=== PATIENT | male | born 1935 | race Caucasian/White ===

== ENCOUNTER 2016-08-09 13:25 | Emergency (ER) | payer MEDICARE, OTHER ==
[~2016-08-09] VITALS: Ht 167.6 cm; Wt 66.0 kg
[~2016-08-09 13:25] MED LIST: AZOP1OP10 BOTH EYES; CEPH-443 PO; DOCU100C PO; FERR-55 PO; FINA5TAB4 PO; FURO40SO PO; HYDR-3498 PO; MECL-77 PO; METO25TA4 PO; POTA20TA96 PO; PRAV40TA76 PO; SPIR25TA PO; TML25OPG5 BOTH EYES; TRAV5DRO5 BOTH EYES; [UNRECOGNIZED DRUG - CODE] PO
[2016-08-09 13:50] VITALS: Ht 167.6 cm; Wt 66.0 kg
[2016-08-09] MEDS ORDERED: SOD CHLORIDE 0.9% 500 ML IV STA (16:00)
[2016-08-09 16:28] LABS: ADD SCAN DIFF NO
[2016-08-09 16:38] LABS: ABNORMAL IP MESSAGE 1; HEMATOCRIT 33.7 % (42.0-52.0); HEMOGLOBIN 10.7 g/dl (14.0-18.0); MEAN CORPUSCULAR HEMOGLOBIN 29.2 pg (29.0-33.0); MEAN CORPUSCULAR HGB CONC 31.8 g/dl (32.0-37.0); MEAN CORPUSCULAR VOLUME 92.1 fl (82.0-101.0); MEAN PLATELET VOLUME 10.8 fl (7.4-10.4); PLATELET COUNT 121 10^3/UL (140-415); RED BLOOD COUNT 3.66 10^6/ul (4.70-6.10); WHITE BLOOD COUNT 2.6 10^3/ul (4.8-10.8)
[2016-08-09 16:45] LABS: INR 2.04; PARTIAL THROMBOPLASTIN TIME 42.8 Sec (25.0-35.0); PROTIME 23.2 Sec (12.2-14.2); PT RATIO 1.8
--- NOTE | 2016-08-09 16:53 | RADRPT ---
PROCEDURE: US bilateral lower extremity veins. CLINICAL INDICATION: Bilateral leg pain and swelling. Chest pain and shortness of breath. TECHNIQUE: Multiple longitudinal and transverse images of the bilateral lower extremity veins were obtained with walker scale and color Doppler imaging. The common femoral vein, femoral vein, and popl iteal vein were evaluated. 2D grayscale measurements with compression sonography, color Doppler, and pulsed Doppler with augmentation. COMPARISON: No prior studies are available for comparison. FINDINGS: The bilateral common femoral, femoral and popliteal veins are normally compressible throughout. Col or flow demonstrates normal filling of the vessels. Normal waveforms are visualized and there is no rmal response to augmentation. IMPRESSION: 1. No evidence of deep vein thrombosis involving either lower extremity. RPTAT: QQ .Erik James MD, Date Time Electronically viewed and signed by .Erik James MD, on 08/09/2016 16:53 .R/
[2016-08-09 16:55] LABS: ALBUMIN 4.3 g/dl (3.3-4.9); CHLORIDE 95 mmol/L (97-110); POTASSIUM 3.7 mmol/L (3.5-5.1); SODIUM 141 mmol/L (135-144)
[2016-08-09 16:57] LABS: CREATININE 1.49 mg/dl (0.61-1.24)
[2016-08-09 16:58] LABS: ALANINE AMINOTRANSFERASE 32 IU/L (13-69); ALBUMIN/GLOBULIN RATIO 0.91; ALKALINE PHOSPHATASE 140 IU/L (42-121); ANION GAP 23 (8-16); ASPARTATE AMINO TRANSFERASE 38 IU/L (15-46); BILIRUBIN,INDIRECT 0.2 mg/dl (0-1.1); BILIRUBIN,TOTAL 0.2 mg/dl (0.2-1.3); BLOOD UREA NITROGEN 39 mg/dl (7-20); CARBON DIOXIDE 27 mmol/L (21-31); CREATINE KINASE 84 IU/L (23-200); GLUCOSE 91 mg/dl (70-220)
[2016-08-09 17:08] LABS: B-TYPE NATRIURETIC PEPTIDE 1070 PG/ML (0-450)
[2016-08-09 17:09] LABS: CK-MB 3.06 ng/ml (0.0-2.4)
[2016-08-09 17:21] LABS: TROPONIN-I < 0.012 ng/ml (0.00-0.12)
[2016-08-09] MEDS ORDERED: FER325 PO (17:29)
[2016-08-09] MEDS ORDERED: AMIO200T2 PO (17:29)
[2016-08-09] MEDS ORDERED: ALDS PO (17:30)
[2016-08-09] MEDS ORDERED: LEVO50TA74 PO (17:30)
[2016-08-09] MEDS ORDERED: METO5TAB65 PO (17:31)
[2016-08-09] MEDS ORDERED: FURO40TA4 PO (17:31)
[2016-08-09] MEDS ORDERED: METF500T4 PO (17:32)
[2016-08-09] MEDS ORDERED: TAMS0.4C2 PO (17:33)
[2016-08-09] MEDS ORDERED: ATOR10TA65 PO (17:33)
[2016-08-09] MEDS ORDERED: DORZ10DR6 BOTH EYES (17:34)
[2016-08-09] MEDS ORDERED: WARF4TAB PO (17:38)
[2016-08-09] MEDS ORDERED: WARF2TAB PO (17:38)
[2016-08-09] MEDS ORDERED: WARF3TAB PO (17:38)
[2016-08-09] MEDS ORDERED: FINA5TAB4 PO (17:39)
[2016-08-09] MEDS ORDERED: LATA2.5D2 BOTH EYES (17:40)
[2016-08-09] MEDS ORDERED: POTA20TA15 PO (17:41)
[2016-08-09 19:33] LABS: LYMPHOCYTES # 1.7 10^3/ul (0.8-2.9); MONOCYTE # 0.3 10^3/ul (0.3-0.9); NEUTROPHIL # 0.4 10^3/ul (1.6-7.5)
--- NOTE | 2016-08-09 19:53 | ERD ---
ER Documentation Chief Complaint Date/Time DATE: 08/09/16 TIME: 19:52 Chief Complaint BILATERAL ANKLE PAIN OF UNK ORIGIN. HPI This is a 80-year-old very pleasant male that presents to the emergency department complaining of bilateral lower extremity pain and swelling that has been present for the past 1 month. The patient indicates that he has had a previous sternotomy August 16, 2015 performed at [facility] with a mitral valve repair and aortic valve repair. The patient also has a cardiac pacemaker present. He indicates that he has no shortness of breath at rest or exertion. He denies any chest pain or pressure that radiates to the neck arm back or jaw. He indicates that he is experiencing cramping and severe pain of his bilateral lower extremities that is most present at night while he sleeping. He denies any numbness or tingling of his lower extremities. He indicates that the swelling is most prominent around his ankles and again this is been intermittent for 1 month. He has no fevers no shaking or chills. He states he has taken no medication for the lower extremity pain and denies any recent or remote trauma to his bilateral lower extremities. He denies any back pain. He denies any saddle anesthesia. ROS All systems reviewed and are negative except as per history of present illness. Medications Home Meds Active Scripts Hydrocodone Bit-Acetaminophen* ([place]*) 5-325 Mg Tab, 1 TAB PO Q6 Y for PAIN LEVEL 6-10, #30 TAB Prov:ANGELICA GORDILLO MD 06/03/15 Reported Medications Potassium Chloride* (K-Dur*) 20 Meq Tab.prt.sr, 20 MEQ PO BID, TAB.SA 08/09/16 Latanoprost (Latanoprost) 2.5 Ml Drops, 1 DROP BOTH EYES QHS, #1 BOTTLE 08/09/16 Finasteride* (Finasteride*) 5 Mg Tablet, 5 MG PO DAILY, TAB 08/09/16 Warfarin Sodium* (Coumadin*) 4 Mg Tablet, 4 MG PO DAILY, TAB DEPENDS HOW HIS BLOOD TEST 08/09/16 Warfarin Sodium* (Coumadin*) 3 Mg Tablet, 3 MG PO DAILY, TAB DEPENDS HOW HIS BLOOD TEST 08/09/16 Warfarin Sodium* (Coumadin*) 2 Mg Tablet, 2 MG PO DAILY, TAB DEPENDS HOW HIS BLOOD TEST 08/09/16 Dorzolamide/Timolol* (Dorzolamide/Timolol*) 10 Ml Drops, 1 DROP BOTH EYES BID, # 1 EA 08/09/16 Atorvastatin Calcium (Atorvastatin Calcium) 10 Mg Tablet, 10 MG PO QHS, #30 TAB 08/09/16 Tamsulosin Hcl* (Tamsulosin Hcl*) 0.4 Mg Cap.er.24h, 0.4 MG PO DAILY, CAP 08/09/16 Metformin* (Glucophage*) 500 Mg Tab, 500 MG PO WITH LUNCH DINNER, #60 TAB 08/09/16 Metolazone* (Metolazone*) 5 Mg Tablet, 5 MG PO DAILY, TAB 08/09/16 Furosemide* (Furosemide*) 40 Mg Tablet, 40 MG PO DAILY, TAB 08/09/16 Spironolactone* (Aldactone*) 5 Mg/Ml (COMPOUNDED) Susp, 5 MG PO DAILY for 30 Days, BOTTLE (COMPOUNDED) 08/09/16 Levothyroxine Sodium* (Levothyroxine Sodium*) 50 Mcg Tablet, 50 MCG PO BEFORE BREAKFAST, #30 TAB 08/09/16 Ferrous Sulfate* (Ferrous Sulfate*) 325 Mg Tabec, 325 MG PO DAILY, TAB 08/09/16 Amiodarone Hcl* (Amiodarone Hcl*) 200 Mg Tablet, 200 MG PO DAILY, #30 TAB 08/09/16 Discontinued Reported Medications Meclizine Hcl* (Meclizine Hcl*) 25 Mg Tablet, 25 MG PO TID Y for DIZZINESS, TAB 11/30/14 Metoprolol Tartrate* (Lopressor*) 25 Mg Tablet, 25 MG PO DAILY, TAB 11/30/14 Spironolactone* (Aldactone*) 25 Mg Tablet, 50 MG PO DAILY, TAB 07/07/14 Pravastatin Sodium* (Pravastatin Sodium*) 40 Mg Tablet, 40 MG PO HS, TAB 07/07/14 Brinzolamide* (Azopt*) 1%-5 Ml Drops.susp, 1 DROP BOTH EYES TID, BOTTLE 07/07/14 Ferrous Sulfate* (Ferrous Sulfate*) 325 Mg Tablet, 1 TAB PO DAILY 05/14/12 Travoprost (Benzalkonium) (Travatan 0.004% Eye Drop) 5 Ml Drops, 1 DROP BOTH EYES QHS 12/29/10 Timolol Maleate* (Timolol Maleate* Gel) 5 Ml Amalia.gel, 1 DROP BOTH EYES QAM 12/29/10 Docusate Sodium (Doc-Q-Lace) 100 Mg Capsule, 100 MG PO BID 12/29/10 Finasteride* (Finasteride*) 5 Mg Tablet, 5 MG PO DAILY 02/06/10 Discontinued Scripts Cephalexin* (Keflex*) 500 Mg Capsule, 500 MG PO BID for 7 Days, #14 CAP Prov:NILDA CLAUDIO MD 02/18/16 Furosemide* (Furosemide*) 40 Mg/5 Ml Solution, 40 MG PO DAILY for 30 Days, ML Prov:ANGELICA GORDILLO MD 06/03/15 Warfarin Sodium (Warfarin Sodium) 2 Mg Tablet, 7 MG PO DAILY for 30 Days, TAB Prov:ANGELICA GORDILLO MD 06/03/15 Potassium Chloride* (Potassium Chloride*) 20 Meq Tablet.er, 20 MEQ PO BID for 30 Days, TAB.SA Prov:ANGELICA GORDILLO MD 07/09/14 Allergies Allergies: Coded Allergies: tramadol (Verified Adverse Reaction, Severe, SHAKINESS, 08/09/16) PMhx/Soc History of Surgery: Yes (heart valve replacement x3,cabg,pacemaker x2,gall bladder surgery) Anesthesia Reaction: No Hx Neurological Disorder: No Hx Respiratory Disorders: No Hx Cardiac Disorders: Yes (htn,afib, HEART FAILURE) Hx Psychiatric Problems: No Hx Miscellaneous Medical Probl: Yes (ANEMIA, GERD, ) Hx Alcohol Use: Yes (occasional) Hx Substance Use: No Hx Tobacco Use: No Smoking Status: Never smoker Physical Exam Vitals Vital Signs Date Time Temp Pulse Resp B/P Pulse Ox O2 Delivery O2 Flow Rate FiO2 08/09/16 18:36 61 20 122/55 100 Room Air 08/09/16 13:50 98.6 61 20 125/56 100 Physical Exam Constitutional:Well-developed. Well-nourished. HEENT:Normocephalic. Atraumatic.Pupils were equal round reactive to light. Moist mucous membranes.No tonsillar exudates. Neck: No nuchal rigidity. No lymphadenopathy. No posterior cervical spine tenderness or step-offs. Respiratory: Not using accessory muscles of respiration.Lungs were clear to auscultation bilaterally. No rhonchi. No rales. No wheezing. Cardiovascular: Regular rate regular rhythm. Systolic murmur. No rubs were appreciated.S1, S2 normal. Distal pulses are palpable 2+ bilaterally. GI: Abdomen was soft. Nontender. Non Distended. No pulsatile abdominal masses or bruits. No rebound. No guarding. Bowel sounds were present and normal. Muscle skeletal: Full range of motion of both the upper and lower extremities bilaterally.Normal muscle tone. 1+ pitting edema the bilateral lower extremities. Homans sign negative bilaterally. Skin: No petechia, no purpura. No lesions on the palms or the soles of the feet. No maculopapular rash. Hyperpigmentation over the distal two thirds of the anterior aspect of the bilateral lower extremities. NEURO: Patient was alert, awake, orientated x3.No facial droop. Gait observed and normal with no ataxia.Speech had regular rate and rhythm. No focal neurological deficits. Result Diagram: 08/09/16 1620 08/09/16 1620 Results 24 hrs Laboratory Tests Test 08/09/16 16:20 Activated Partial Thromboplast Time 42.8Sec Alanine Aminotransferase (ALT/SGPT) 32IU/L Albumin 4.3g/dl Albumin/Globulin Ratio 0.91 Alkaline Phosphatase 140IU/L Anion Gap 23 Aspartate Amino Transf (AST/SGOT) 38IU/L B-Type Natriuretic Peptide 1070PG/ML Band Neutrophils % 2.0% Blood Urea Nitrogen 39mg/dl Calcium Level 10.0mg/dl Carbon Dioxide Level 27mmol/L Chloride Level 95mmol/L Creatine Kinase 84IU/L Creatine Kinase Index 3.6 Creatinine 1.49mg/dl Creatinine Kinase MB (Mass) 3.06ng/ml Direct Bilirubin 0.00mg/dl Globulin 4.70g/dl Glucose Level 91mg/dl Hematocrit 33.7% Hemoglobin 10.7g/dl INR International Normalized Ratio 2.04 Indirect Bilirubin 0.2mg/dl Lymphocytes # 1.710^3/ul Lymphocytes % 65.0% Mean Corpuscular Hemoglobin 29.2pg Mean Corpuscular Hemoglobin Concent 31.8g/dl Mean Corpuscular Volume 92.1fl Mean Platelet Volume 10.8fl Monocytes # 0.310^3/ul Monocytes % 13.0% Neutrophils # 0.410^3/ul Neutrophils % 17.0% Platelet Count 82070^3/UL Potassium Level 3.7mmol/L Prothrombin Time 23.2Sec Prothrombin Time Ratio 1.8 Reactive Lymphocytes % 3.0% Red Blood Count 3.6610^6/ul Red Cell Distribution Width 14.0% Sodium Level 141mmol/L Total Bilirubin 0.2mg/dl Total Protein 9.0g/dl Troponin I < 0.012ng/ml White Blood Count 2.610^3/ul Current Medications Medications (Trade) Dose Ordered Sig/Angeles Route PRN Reason Start Time Stop Time Status Last Admin Dose Admin Sodium Chloride (NS) 500 ml @ 500 mls/hr Q1H STAT IV 08/09/16 16:00 08/09/16 16:59 Cancel Procedures/MDM This patient presented to the emergency department complaining of lower extremity pain and swelling for the past 1 month. The patient has a significant cardiac history and ancillary laboratory work was obtained. The patient was refusing IV access. The patient is leukopenic and when reviewing previous ancillary laboratory work from May 2015 the patient was also leukopenic with white blood cell count of 4.0. The patient has chronic kidney injury with a BUN of 39 and creatinine of 1.49 compared to May 2015 when the patient's BUN was 24 creatinine was 0.93. I did obtain venous duplex ultrasound of the bilateral lower extremities which indicated there is no evidence of a deep vein thrombosis. 12 Lead EKG tracing ordered and reviewed by myself showed: Ventricular paced rhythm at 60 bpm and no arrhythmia. MA interval not appreciated as P waves were not present due to the paced rhythm QRS duration widened from ventricular paced rhythm at [address] segment elevation No ST segment depression. No changes consistent with acute ischemia. The patient's troponin was within normal limits. There is mild elevation of the patient's BNP which could be a result of his chronic renal failure. The patient had no physical exam findings to suggest endocarditis. The patient had physical exam findings that were suggestive of chronic venous insufficiency that have been present for over one month. He did not appear to have an acute life-threatening etiology as arterial insufficiency. His primary care physician is Dr. Gordillo. I have placed a call to Dr. Gordillo and did indicate to the patient that he will follow-up on an outpatient basis for further definitive treatment. The patient was discharged home in fair condition. They were instructed to return to the emergency department at any time if there was any worsening of their condition. The patient stated they would follow up with their PCP in the next 24-48 hours to initiate a suitable medication regimen under the care of their PCP as well as to allow their PCP to monitor any drug reactions. The patient was discharged home with prescriptions after they gave informed consent to the new medication. They were also fully informed by myself on the adverse effects and adverse drug interactions in order to provide adequate safeguards to prevent possible adverse reactions to medications. Departure Diagnosis: Primary Impression: Peripheral edema Additional Impression: Leg pain, bilateral Condition: DENIS Lange Aug 09, 2016 19:53
[2016-08-09] MEDS ORDERED: HYDR-906 PO (20:00)
[2016-08-09 20:34] VITALS: BP 104/54; PULSE 63; RESP 16
--- NOTE | 2016-08-09 20:56 | RADRPT ---
PROCEDURE: XR Chest. CLINICAL INDICATION: Chest pain TECHNIQUE: A single portable view of the chest was obtained. COMPARISON: 06/02/2015 FINDINGS: The dual lead pacemaker is unchanged. A prior median sternotomy is again seen. The aorta is tortuo us and atherosclerotic. The cardiomediastinal silhouette is otherwise enlarged and is stable. Small bilateral pleural effusions are seen with bibasilar atelectasis. No dense consolidation is seen. T he soft tissues and osseous structures demonstrate benign age related senescent changes. IMPRESSION: 1. Small bilateral pleural effusions with bibasilar atelectasis. 2. Stable cardiomegaly. RPTAT: HPNM Physician Marilyn Date Time Electronically viewed and signed by Jem Clifton Physician on 08/09/2016 20:56 /
== END 2016-08-09 20:34 | disposition home or self-care (01) ==
LOC: E/R 13:25
DX: R60.0 Localized edema (principal); M79.662 Pain in left lower leg; M79.661 Pain in right lower leg; I10 Essential (primary) hypertension; I50.9 Heart failure, unspecified; Z95.1 Presence of aortocoronary bypass graft; Z95.0 Presence of cardiac pacemaker; Z79.01 Long term (current) use of anticoagulants; Z79.84 Long term (current) use of oral hypoglycemic drugs
CPT/HCPCS: 71010; 80053; 82550; 82553; 83880; 84484; 85025; 85610; 85730; 93005; 93970; J7040

== ENCOUNTER 2016-12-30 13:13 | Emergency (ER) | payer MEDICARE, OTHER ==
[~2016-12-30] VITALS: Ht 170.2 cm; Wt 65.5 kg
[~2016-12-30 13:13] MED LIST changes: +ALDS PO; +AMIO200T2 PO; +ATOR10TA65 PO; -AZOP1OP10 BOTH EYES; -CEPH-443 PO; -DOCU100C PO; +DORZ10DR6 BOTH EYES; +FER325 PO; -FERR-55 PO; -FURO40SO PO; +FURO40TA4 PO; +HYDR-906 PO; +LATA2.5D2 BOTH EYES; +LEVO50TA74 PO; -MECL-77 PO; +METF500T4 PO; -METO25TA4 PO; +METO5TAB65 PO; +POTA20TA15 PO; -POTA20TA96 PO; -PRAV40TA76 PO; -SPIR25TA PO; +TAMS0.4C2 PO; -TML25OPG5 BOTH EYES; -TRAV5DRO5 BOTH EYES; +WARF2TAB PO; +WARF3TAB PO; +WARF4TAB PO; -[UNRECOGNIZED DRUG - CODE] PO
[2016-12-30 13:18] VITALS: Ht 170.2 cm; Wt 65.5 kg
--- NOTE | 2016-12-30 15:57 | ERA ---
ER Documentation Chief Complaint Date/Time DATE: 12/30/16 TIME: 15:53 Chief Complaint tripped and fell 2 days ago right arm bruise pt is on coumadin HPI This is an 81-year-old male who is on Coumadin who is presenting to days status post mechanical fall with impact to his right forearm. Patient states that the pain is 1 out of 10 refuses pain medications at this time. Patient denies trauma to other areas of the body or loss of consciousness. Denies chest pain, shortness of breath. Has no other complaints and describes no other associated manifestations. No recent travel. Vaccination status up-to-date. ROS All systems reviewed and are negative except as per history of present illness. Medications Home Meds Active Scripts Hydrocodone/Acetaminophen ([place] 5-325 Tablet) 1 Each Tablet, 1 TAB PO Q6H Y for PAIN, #20 TAB Prov:DENIS ASENCIO 08/09/16 Hydrocodone Bit-Acetaminophen* ([place]*) 5-325 Mg Tab, 1 TAB PO Q6 Y for PAIN LEVEL 6-10, #30 TAB Prov:ANGELICA GRANDE MD 06/03/15 Reported Medications Potassium Chloride* (K-Dur*) 20 Meq Tab.prt.sr, 20 MEQ PO BID, TAB.SA 08/09/16 Latanoprost (Latanoprost) 2.5 Ml Drops, 1 DROP BOTH EYES QHS, #1 BOTTLE 08/09/16 Finasteride* (Finasteride*) 5 Mg Tablet, 5 MG PO DAILY, TAB 08/09/16 Warfarin Sodium* (Coumadin*) 4 Mg Tablet, 4 MG PO DAILY, TAB DEPENDS HOW HIS BLOOD TEST 08/09/16 Warfarin Sodium* (Coumadin*) 3 Mg Tablet, 3 MG PO DAILY, TAB DEPENDS HOW HIS BLOOD TEST 08/09/16 Warfarin Sodium* (Coumadin*) 2 Mg Tablet, 2 MG PO DAILY, TAB DEPENDS HOW HIS BLOOD TEST 08/09/16 Dorzolamide/Timolol* (Dorzolamide/Timolol*) 10 Ml Drops, 1 DROP BOTH EYES BID, # 1 EA 08/09/16 Atorvastatin Calcium (Atorvastatin Calcium) 10 Mg Tablet, 10 MG PO QHS, #30 TAB 08/09/16 Tamsulosin Hcl* (Tamsulosin Hcl*) 0.4 Mg Cap.er.24h, 0.4 MG PO DAILY, CAP 08/09/16 Metformin* (Glucophage*) 500 Mg Tab, 500 MG PO WITH LUNCH DINNER, #60 TAB 08/09/16 Metolazone* (Metolazone*) 5 Mg Tablet, 5 MG PO DAILY, TAB 08/09/16 Furosemide* (Furosemide*) 40 Mg Tablet, 40 MG PO DAILY, TAB 08/09/16 Spironolactone* (Aldactone*) 5 Mg/Ml (COMPOUNDED) Susp, 5 MG PO DAILY for 30 Days, BOTTLE (COMPOUNDED) 08/09/16 Levothyroxine Sodium* (Levothyroxine Sodium*) 50 Mcg Tablet, 50 MCG PO BEFORE BREAKFAST, #30 TAB 08/09/16 Ferrous Sulfate* (Ferrous Sulfate*) 325 Mg Tabec, 325 MG PO DAILY, TAB 08/09/16 Amiodarone Hcl* (Amiodarone Hcl*) 200 Mg Tablet, 200 MG PO DAILY, #30 TAB 08/09/16 Allergies Allergies: Coded Allergies: tramadol (Verified Adverse Reaction, Severe, SHAKINESS, 08/09/16) PMhx/Soc History of Surgery: Yes (heart valve replacement x3,cabg,pacemaker x2,gall bladder surgery) Anesthesia Reaction: No Hx Neurological Disorder: No Hx Respiratory Disorders: No Hx Cardiac Disorders: Yes (htn,afib, HEART FAILURE) Hx Psychiatric Problems: No Hx Miscellaneous Medical Probl: Yes (ANEMIA, GERD, ) Hx Alcohol Use: Yes (occasional) Hx Substance Use: No Hx Tobacco Use: No Physical Exam Vitals Vital Signs Date Time Temp Pulse Resp B/P Pulse Ox O2 Delivery O2 Flow Rate FiO2 12/30/16 13:18 97.7 74 18 121/56 96 Physical Exam Const: Well-appearing, pleasant 81-year-old male in no acute distress Head: Atraumatic, normocephalic Eyes: Normal Conjunctiva, EOMI, PERRLA bilaterally ENT: Normal External Ears, Nose and Mouth. Neck: Full range of motion..~ No meningismus. Resp: Clear to auscultation bilaterally Cardio: Regular rate and rhythm, no murmurs. Cap refill less than 2 seconds. Abd: Soft, non tender, non distended. Normal bowel sounds Skin: Ecchymosis and hematomas noted on the arms. Consistent with chronic bruising for patient on Coumadin. Back: No midline or flank tenderness Ext: No cyanosis, or edema Neur: Awake and alert Psych: Normal Mood and Affect Procedures/MDM This is an 81-year-old male presenting today status post mechanical fall as described in the history and physical examination. I have little suspicion for neurovascular compromise or internal bleeding at this time. Labs are not needed at this time as there is no evidence of continued bleeding or external bleeding/abrasions/lacerations. X-ray was taken to rule out bony pathology. X- ray was read by the radiologist given the following impression: Unremarkable I have spoke with the patient regarding their condition and future management. They have verbally responded that they understand their status and treatment plan. The patients vitals are stable, and their current condition is appropriate for discharge. The patient will be given discharge instructions with return precautions. Departure Diagnosis: Primary Impression: Fall with no significant injury Qualified Code: W19.XXXA - Fall with no significant injury, initial encounter Condition: Stable Additional Instructions: Follow up with your PCP within the next 1-3 days for a more thorough evaluation and a possible referral to a specialist. Return the the emergency department immediately if symptoms worsen or change. If you have any questions regarding medications, ask your pharmacist or us before you leave. If any adverse reactions occur while taking your medications, discontinue the treatment and return to the emergency department immediately. Take your medications as directed, and complete the entire course of treatment. OLIVE STAPLES PA-C Dec 30, 2016 15:57
--- NOTE | 2016-12-30 16:01 | RADRPT ---
PROCEDURE: XR Forearm. CLINICAL INDICATION: Pain. Trauma. TECHNIQUE: Right forearm x-rays, two views. COMPARISON: None. FINDINGS: Bone density appears normal. Bony cortices are intact. The wrist and elbow joints are intact. Fine vascular calcifications are seen within the soft tissues. IMPRESSION: No evidence of acute osseous abnormality. Arteriosclerosis. RPTAT: HLST .Heidy Jennings MD, MD Date Time Electronically viewed and signed by .Heidy Jennings MD, on 12/30/2016 16:00 .T/
[2016-12-30 16:57] VITALS: BP 141/65; PULSE 60; RESP 16
== END 2016-12-30 16:58 | disposition home or self-care (01) ==
LOC: FTE 13:13
DX: S40.021A Contusion of right upper arm, initial encounter (principal); S40.022A Contusion of left upper arm, initial encounter; I10 Essential (primary) hypertension; I50.9 Heart failure, unspecified; W01.0XXA Fall on same level from slipping, tripping and stumbling without subsequent striking against object, initial encounter; Y92.9 Unspecified place or not applicable; Z79.01 Long term (current) use of anticoagulants; Z79.84 Long term (current) use of oral hypoglycemic drugs; Z98.61 Coronary angioplasty status; Z95.0 Presence of cardiac pacemaker

== ENCOUNTER 2017-02-28 14:10 | Emergency (ER) | payer MEDICARE, OTHER ==
[~2017-02-28] VITALS: Wt 75.0 kg
[2017-02-28 14:13] VITALS: Wt 75.0 kg
[2017-02-28] MEDS ORDERED: SPIR25TA PO (16:18)
[2017-02-28] MEDS ORDERED: POLY17PO3 PO (16:18)
[2017-02-28 16:30] LABS: BASOPHILS % 0.5 % (0.0-2.0); HEMATOCRIT 32.2 % (42.0-52.0); HEMOGLOBIN 10.5 g/dl (14.0-18.0); LYMPHOCYTES # 1.3 10^3/ul (0.8-2.9); MEAN CORPUSCULAR HEMOGLOBIN 30.3 pg (29.0-33.0); MEAN CORPUSCULAR HGB CONC 32.6 g/dl (32.0-37.0); MEAN CORPUSCULAR VOLUME 92.8 fl (82.0-101.0); MEAN PLATELET VOLUME 9.8 fl (7.4-10.4); MONOCYTE # 0.5 10^3/ul (0.3-0.9); MONOCYTES % 12.8 % (0.0-11.0); NEUTROPHILS % 51.4 % (39.0-77.0); PLATELET COUNT 107 10^3/UL (140-415); RED BLOOD COUNT 3.47 10^6/ul (4.70-6.10); RED CELL DISTRIBUTION WIDTH 13.5 % (11.5-14.5); WHITE BLOOD COUNT 3.8 10^3/ul (4.8-10.8)
[2017-02-28 16:45] LABS: INR 1.98; PROTIME 22.7 Sec (12.2-14.2); PT RATIO 1.8
[2017-02-28 16:46] LABS: PARTIAL THROMBOPLASTIN TIME 39.3 Sec (25.0-35.0)
[2017-02-28 16:49] LABS: CALCIUM 9.6 mg/dl (8.4-10.2); CREATININE 1.61 mg/dl (0.61-1.24); POTASSIUM 4.3 mmol/L (3.5-5.1)
--- NOTE | 2017-02-28 17:11 | RADRPT ---
PROCEDURE: CT Brain without contrast. CLINICAL INDICATION: Trauma, pain. TECHNIQUE: A CT of the brain was performed on multidetector high-resolution CT scanner utilizing a xial sections from the skull base through the vertex without contrast. The scan was reviewed in sof t tissue brain and high frequency resolution bone algorithm windows. Images were reviewed on a high -resolution PACS workstation. One or more the following does reduction techniques were utilized: Aut omated exposure control, adjustment of the mA/ or kV according to patient's size, or use of iterativ e reconstruction technique. The exam CTDI = 42.81 mGy and the DLP = 630.2 mGy-cm. COMPARISON: Brain CT 11/30/2014. FINDINGS: The ventricles and sulci are mildly to moderately prominent indicative of volume loss. There is no intracranial hemorrhage, mass effect or midline shift. No abnormal intra-axial or extra-axial fluid collections are seen. The walker/white matter differentiation is preserved. There are mild scattered foci of hypoattenuation in the white matter, which are nonspecific in etiol ogy but likely reflect chronic small vessel ischemic changes. There are mild intracranial vascular calcifications consistent with atherosclerosis. The visualized paranasal sinuses are essentially chastity ar. Right frontal scalp swelling and hematoma are noted without underlying skull fracture. IMPRESSION: 1. No acute intracranial hemorrhage, transcortical infarction or mass effect. 2. Mild intracranial atherosclerosis and chronic small vessel ischemic changes. 3. Mild to moderate generalized cerebral volume loss. 4. Right frontal scalp swelling and hematoma are noted without underlying skull fracture. RPTAT: HFN .Sharon Ely MD, Date Time Electronically viewed and signed by .Sharon Ely MD, MD on 02/28/2017 17:11 .N/
--- NOTE | 2017-02-28 17:32 | ERD ---
ER Documentation Chief Complaint Date/Time DATE: 02/28/17 TIME: 17:32 Chief Complaint HEAD LAC AFTER [facility] "I TAKE BLOOD THINNERS" HPI 81-year-old male with a history of cardiac arrhythmia, diabetes, hypertension presenting after a ground-level fall. He states he was walking across the street when he tripped and fell. He hit his forehead on the ground. He denies any loss of consciousness. He has no nausea, vomiting, headache, vision disturbance, focal weakness or numbness. He complains of a few scratches but nothing serious. He is on Coumadin after he had artificial valves placed.. ROS All systems reviewed and are negative except as per history of present illness. Medications Home Meds Reported Medications Spironolactone* (Aldactone*) 25 Mg Tablet, 25 MG PO DAILY, #30 TAB 02/28/17 Polyethylene Glycol* (Polyethylene Glycol*) 17 Gm Powd.pack, 17 GM PO DAILY, # 30 PACKET 02/28/17 Potassium Chloride* (K-Dur*) 20 Meq Tab.prt.sr, 20 MEQ PO BID, TAB.SA 08/09/16 Latanoprost (Latanoprost) 2.5 Ml Drops, 1 DROP BOTH EYES QHS, #1 BOTTLE 08/09/16 Finasteride* (Finasteride*) 5 Mg Tablet, 5 MG PO DAILY, TAB 08/09/16 Warfarin Sodium* (Coumadin*) 3 Mg Tablet, 3 MG PO DAILY, TAB DEPENDS HOW HIS BLOOD TEST 08/09/16 Warfarin Sodium* (Coumadin*) 2 Mg Tablet, 2 MG PO DAILY, TAB DEPENDS HOW HIS BLOOD TEST 08/09/16 Atorvastatin Calcium (Atorvastatin Calcium) 10 Mg Tablet, 10 MG PO QHS, #30 TAB 08/09/16 Tamsulosin Hcl* (Tamsulosin Hcl*) 0.4 Mg Cap.er.24h, 0.4 MG PO DAILY, CAP 08/09/16 Metformin* (Glucophage*) 500 Mg Tab, 500 MG PO WITH LUNCH DINNER, #60 TAB 08/09/16 Metolazone* (Metolazone*) 5 Mg Tablet, 5 MG PO DAILY, TAB 08/09/16 Furosemide* (Furosemide*) 40 Mg Tablet, 40 MG PO DAILY, TAB 08/09/16 Levothyroxine Sodium* (Levothyroxine Sodium*) 50 Mcg Tablet, 50 MCG PO BEFORE BREAKFAST, #30 TAB 08/09/16 Ferrous Sulfate* (Ferrous Sulfate*) 325 Mg Tabec, 325 MG PO DAILY, TAB 08/09/16 Amiodarone Hcl* (Amiodarone Hcl*) 200 Mg Tablet, 200 MG PO DAILY, #30 TAB 08/09/16 Discontinued Reported Medications Warfarin Sodium* (Coumadin*) 4 Mg Tablet, 4 MG PO DAILY, TAB DEPENDS HOW HIS BLOOD TEST 08/09/16 Dorzolamide/Timolol* (Dorzolamide/Timolol*) 10 Ml Drops, 1 DROP BOTH EYES BID, # 1 EA 08/09/16 Spironolactone* (Aldactone*) 5 Mg/Ml (COMPOUNDED) Susp, 5 MG PO DAILY for 30 Days, BOTTLE (COMPOUNDED) 08/09/16 Discontinued Scripts Hydrocodone/Acetaminophen ([place] 5-325 Tablet) 1 Each Tablet, 1 TAB PO Q6H Y for PAIN, #20 TAB Prov:DENIS ASENCIO 08/09/16 Hydrocodone Bit-Acetaminophen* ([place]*) 5-325 Mg Tab, 1 TAB PO Q6 Y for PAIN LEVEL 6-10, #30 TAB Prov:ANGELICA GRANDE MD 06/03/15 Allergies Allergies: Coded Allergies: tramadol (Verified Adverse Reaction, Severe, SHAKINESS, 02/28/17) PMhx/Soc History of Surgery: Yes (heart valve replacement x3,cabg,pacemaker x2,gall bladder surgery) Anesthesia Reaction: No Hx Neurological Disorder: No Hx Respiratory Disorders: No Hx Cardiac Disorders: Yes (htn,afib, HEART FAILURE) Hx Psychiatric Problems: No Hx Miscellaneous Medical Probl: Yes (ANEMIA, GERD, ) Hx Alcohol Use: Yes (occasional) Hx Substance Use: No Hx Tobacco Use: No Smoking Status: Never smoker FmHx Family History: No diabetes Physical Exam Vitals Vital Signs Date Time Temp Pulse Resp B/P Pulse Ox O2 Delivery O2 Flow Rate FiO2 02/28/17 17:42 98.0 67 18 132/69 100 Room Air 02/28/17 15:46 67 18 143/74 100 Room Air 02/28/17 14:13 98.0 72 18 143/63 99 Physical Exam Const: Well-appearing, no apparent distress Head: Forehead superficial abrasion and hematoma 3 x 3 cm Eyes: Normal Conjunctiva, PERRLA, EOMI ENT: Normal External Ears, Nose and Mouth. Intraoral injuries Neck: Full range of motion..~ No meningismus. When tenderness Resp: Clear to auscultation bilaterally Cardio: Regular rate and rhythm, no murmurs Abd: Soft, non tender, non distended. Normal bowel sounds Skin: Multiple areas of ecchymosis to the right upper extremity without deformities with superficial abrasion to the right shoulder. Back: No midline or flank tenderness Ext: No cyanosis, or edema. No deformities. Full range of motion at all joints. 2+ distal pulses Neur: GCS15. Awake and alert, oriented 3, cranial nerves intact, strength and sensations intact in all 4 extremities, normal gait Psych: Normal Mood and Affect Result Diagram: 02/28/17 1615 02/28/17 1615 Results 24 hrs Laboratory Tests Test 02/28/17 16:15 White Blood Count 3.810^3/ul Red Blood Count 3.4710^6/ul Hemoglobin 10.5g/dl Hematocrit 32.2% Mean Corpuscular Volume 92.8fl Mean Corpuscular Hemoglobin 30.3pg Mean Corpuscular Hemoglobin Concent 32.6g/dl Red Cell Distribution Width 13.5% Platelet Count 57763^3/UL Mean Platelet Volume 9.8fl Neutrophils % 51.4% Lymphocytes % 34.0% Monocytes % 12.8% Eosinophils % 1.0% Basophils % 0.5% Nucleated Red Blood Cells % 0.0/100WBC Neutrophils # 2.010^3/ul Lymphocytes # 1.310^3/ul Monocytes # 0.510^3/ul Eosinophils # 0.010^3/ul Basophils # 0.010^3/ul Nucleated Red Blood Cells # 0.010^3/ul Prothrombin Time 22.7Sec Prothrombin Time Ratio 1.8 INR International Normalized Ratio 1.98 Activated Partial Thromboplast Time 39.3Sec Sodium Level 133mmol/L Potassium Level 4.3mmol/L Chloride Level 96mmol/L Carbon Dioxide Level 30mmol/L Anion Gap 11 Blood Urea Nitrogen 34mg/dl Creatinine 1.61mg/dl Glucose Level 88mg/dl Calcium Level 9.6mg/dl Current Medications Medications (Trade) Dose Ordered Sig/Angeles Route PRN Reason Start Time Stop Time Status Last Admin Dose Admin Diphtheria/ Tetanus/Acell Pertussis (Adacel) 0.5 ml ONCE ONCE IM* 02/28/17 18:00 02/28/17 18:00 DC 02/28/17 17:37 Procedures/MDM Labs CBC shows pancytopenia BMP shows evidence of chronic renal failure at patient's baseline Coags show INR therapeutic range CT head shows no acute abnormalities other than forehead hematoma. There is no intracranial hemorrhage. MDM Patient is presenting after a ground-level fall. He is GCS 15 without loss of consciousness, however he is on blood thinners. CT head was done and did not show any acute bleed or skull fracture. Patient is neurologically intact. I feel he is stable for discharge. Return precautions were discussed. He was advised to return for any worsening symptoms as there is a risk for delayed bleed. Patient understands. He is with his son who also voiced understanding of the plan. Departure Diagnosis: Primary Impression: Acute head injury without loss of consciousness Encounter type: initial encounter Qualified Code: S09.90XA - Acute head injury without loss of consciousness, initial encounter Additional Impressions: Fall from ground level Traumatic hematoma of forehead Multiple abrasions Condition: Stable Patient Instructions: HEAD INJURY, No Wake-Up (Adult) Additional Instructions: return to the ER for any worsening symptoms. NILDA CLAUDIO MD Feb 28, 2017 17:32
[2017-02-28 17:42] VITALS: BP 132/69; PULSE 67; RESP 18; TEMP 98
[2017-02-28] MEDS ORDERED: DIPHTH/TET/ACEL PERTUSS (ADULT) 0.5 ML VIAL IM* ONE (18:00)
== END 2017-02-28 17:54 | disposition home or self-care (01) ==
LOC: E/R 14:10
DX: S09.90XA Unspecified injury of head, initial encounter (principal); S00.83XA Contusion of other part of head, initial encounter; S40.211A Abrasion of right shoulder, initial encounter; S40.011A Contusion of right shoulder, initial encounter; I10 Essential (primary) hypertension; I50.9 Heart failure, unspecified; E11.9 Type 2 diabetes mellitus without complications; W01.0XXA Fall on same level from slipping, tripping and stumbling without subsequent striking against object, initial encounter; Y92.410 Unspecified street and highway as the place of occurrence of the external cause; Z23 Encounter for immunization; Z95.1 Presence of aortocoronary bypass graft; Z95.0 Presence of cardiac pacemaker; Z79.01 Long term (current) use of anticoagulants; Z79.84 Long term (current) use of oral hypoglycemic drugs
CPT/HCPCS: 70450; 80048; 85025; 85610; 85730; 90471; 90715

== ENCOUNTER 2018-06-07 17:39 | Inpatient (IN) | payer MEDICARE, OTHER ==
[~2018-06-07] VITALS: Ht 167.6 cm; Wt 65.3 kg
[~2018-06-07 17:39] MED LIST changes: -ALDS PO; -AMIO200T2 PO; +AMIO200T4 PO; -DORZ10DR6 BOTH EYES; -HYDR-3498 PO; -HYDR-906 PO; +LEVO50TA7 PO; -LEVO50TA74 PO; +METF-849 PO; -METF500T4 PO; +POLY17PO28 PO; +SPIR25TA PO; -WARF4TAB PO
[2018-06-07] MEDS ORDERED: ACETAMINOPHEN 325 MG TAB PO STA (17:50)
[2018-06-07] MEDS ORDERED: SODIUM CHLORIDE 0.9% 1L BAG IV* STA (17:50)
[2018-06-07] MEDS ORDERED: AZITHROMYCIN 500MG/NS (PMX) 250 ML IV STA (17:50)
[2018-06-07] MEDS ORDERED: CEFTRIAXONE 1 GM/50 ML (PMX) 50 ML IVPB STA (17:50)
[2018-06-07] MEDS ORDERED: ONDANSETRON 4 MG INJ IV PRN (19:30)
[2018-06-07] MEDS ORDERED: ACETAMINOPHEN 325 MG TAB PO PRN (19:30)
--- NOTE | 2018-06-07 20:22 | ERD ---
ER Documentation Chief Complaint Chief Complaint Complains of chest congestion HPI Patient is an 82-year-old male with coronary disease and hypertension who presents with a cough. The patient has cough with productive phlegm. Today he was "shaking all over". The patient has had the symptoms for the past 3 days. He has fever as well. He was concerned for pneumonia. He has had no treatment as of yet. He feels like he would likely need to stay in the hospital as he does not feel safe going home. His primary doctor is Dr. Gordillo. ROS All systems reviewed and are negative except as per history of present illness. Medications Home Meds Reported Medications Spironolactone* (Aldactone*) 25 Mg Tablet, 25 MG PO DAILY, #30 TAB 02/28/17 Polyethylene Glycol* (Polyethylene Glycol*) 17 Gm Powd.pack, 17 GM PO DAILY, #30 PACKET 02/28/17 Potassium Chloride* (K-Dur*) 20 Meq Tab.prt.sr, 20 MEQ PO BID, TAB.SA 08/09/16 Latanoprost (Latanoprost) 2.5 Ml Drops, 1 DROP BOTH EYES QHS, #1 BOTTLE 08/09/16 Finasteride* (Finasteride*) 5 Mg Tablet, 5 MG PO DAILY, TAB 08/09/16 Warfarin Sodium* (Coumadin*) 3 Mg Tablet, 3 MG PO DAILY, TAB DEPENDS HOW HIS BLOOD TEST 08/09/16 Warfarin Sodium* (Coumadin*) 2 Mg Tablet, 2 MG PO DAILY, TAB DEPENDS HOW HIS BLOOD TEST 08/09/16 Atorvastatin Calcium (Atorvastatin Calcium) 10 Mg Tablet, 10 MG PO QHS, #30 TAB 08/09/16 Tamsulosin Hcl* (Tamsulosin Hcl*) 0.4 Mg Cap.er.24h, 0.4 MG PO DAILY, CAP 08/09/16 Metformin* (Glucophage*) 500 Mg Tab, 500 MG PO WITH LUNCH DINNER, #60 TAB 08/09/16 Metolazone* (Metolazone*) 5 Mg Tablet, 5 MG PO DAILY, TAB 08/09/16 Furosemide* (Furosemide*) 40 Mg Tablet, 40 MG PO DAILY, TAB 08/09/16 Levothyroxine Sodium* (Levothyroxine Sodium*) 50 Mcg Tablet, 50 MCG PO BEFORE BREAKFAST, #30 TAB 08/09/16 Ferrous Sulfate* (Ferrous Sulfate*) 325 Mg Tabec, 325 MG PO DAILY, TAB 08/09/16 Amiodarone Hcl* (Amiodarone Hcl*) 200 Mg Tablet, 200 MG PO DAILY, #30 TAB 08/09/16 Allergies Allergies: Coded Allergies: tramadol (Verified Adverse Reaction, Severe, SHAKINESS, 02/28/17) PMhx/Soc History of Surgery: Yes (heart valve replacement x3,cabg,pacemaker x2,gall bladder surgery) Anesthesia Reaction: No Hx Neurological Disorder: No Hx Respiratory Disorders: No Hx Cardiac Disorders: Yes (htn,afib, HEART FAILURE) Hx Psychiatric Problems: No Hx Miscellaneous Medical Probl: Yes (ANEMIA, GERD, ) Hx Alcohol Use: Yes (occasional) Hx Substance Use: No Hx Tobacco Use: No Smoking Status: Never smoker FmHx Family History: diabetes Physical Exam Vitals Vital Signs Date Temp Pulse Resp B/P (MAP) Pulse Ox O2 O2 Flow FiO2 Time Delivery Rate 06/07/18 Nasal 18:34 Cannula 06/07/18 101.6 73 20 149/79 98 Room Air 18:34 (102) 06/07/18 101.4 110 20 165/71 98 17:47 (102) 06/07/18 101.4 110 20 165/71 98 17:42 (102) Physical Exam Const: No acute distress Head: Atraumatic Eyes: Normal Conjunctiva ENT: Normal External Ears, Nose and Mouth. Neck: Full range of motion. No meningismus. Resp: Clear to auscultation bilaterally Cardio: Tachycardic rate without murmur Abd: Soft, non tender, non distended. Normal bowel sounds Skin: No petechiae or rashes Back: No midline or flank tenderness Ext: No cyanosis, or edema Neur: Awake and alert Psych: Normal Mood and Affect Result Diagram: 06/07/18 1815 06/07/181816 Results 24 hrs Laboratory Tests Test 06/07/18 18:15 06/07/18 18:17 White Blood Count 5.4 10^3/ul Red Blood Count 3.30 10^6/ul Hemoglobin 9.8 g/dl Hematocrit 31.3 % Mean Corpuscular Volume 94.8 fl Mean Corpuscular Hemoglobin 29.7 pg Mean Corpuscular Hemoglobin Concent 31.3 g/dl Red Cell Distribution Width 14.2 % Platelet Count 108 10^3/UL Mean Platelet Volume 10.4 fl Immature Granulocytes % 0.400 % Neutrophils % 78.4 % Lymphocytes % 13.9 % Monocytes % 7.1 % Eosinophils % 0.0 % Basophils % 0.2 % Nucleated Red Blood Cells % 0.0 /100WBC Immature Granulocytes # 0.020 10^3/ul Neutrophils # 4.2 10^3/ul Lymphocytes # 0.8 10^3/ul Monocytes # 0.4 10^3/ul Eosinophils # 0.0 10^3/ul Basophils # 0.0 10^3/ul Nucleated Red Blood Cells # 0.0 10^3/ul Prothrombin Time 29.2 Sec Prothrombin Time Ratio 2.3 INR International Normalized Ratio 2.67 Activated Partial Thromboplast Time 48.5 Sec Sodium Level 137 mmol/L Potassium Level 4.7 mmol/L Chloride Level 105 mmol/L Carbon Dioxide Level 24 mmol/L Anion Gap 8 Blood Urea Nitrogen 20 mg/dl Creatinine 1.03 mg/dl Est Glomerular Filtrat Rate mL/min mL/min Glucose Level 117 mg/dl POC Venous Lactate 1.3 mmol/L Calcium Level 8.9 mg/dl Troponin I 0.029 ng/ml Current Medications Medications Dose Sig/Angeles Start Time Status Last (Trade) Ordered Route PRN Stop Time Admin Dose Reason Admin Sodium 1,950 ml BOLUS OVER 2 06/07/18 DC 06/07/18 Chloride HOURS STAT 17:50 18:32 (NS) IV* 06/07/18 17:51 650 mg ONCE STAT 06/07/18 DC 06/07/18 Acetaminophen PO 17:50 18:32 (Tylenol 06/07/18 Tab) 17:51 Ceftriaxone 50 ml @ ONCE STAT 06/07/18 DC 06/07/18 Sodium 100 mls/hr IVPB 17:50 18:32 06/07/18 18:19 Azithromycin 250 ml @ ONCE STAT 06/07/18 DC 06/07/18 250 mls/hr IV 17:50 18:55 06/07/18 18:49 Ondansetron 4 mg BRIDGE ORDER 06/07/18 HCl (Zofran PRN IV 19:30 Inj) NAUSEA AND/OR 06/08/18 VOMITING 19:29 650 mg ER BRIDGE 06/07/18 Acetaminophen PRN PO MILD 19:30 (Tylenol PAIN(1-3)OR 06/08/18 Tab) ELEVATED TEMP 19:29 Procedures/MDM Chest x-ray read by radiology EKG read by me: Rate/Rhythm: Bifascicular block rate of 71 Intervals: Normal Impression: Bifascicular block Sepsis Documentation: Patient's infectious symptoms have not stabilized and the patient is at risk of rapid decompensation. The patient will be admitted for careful hydration, antibiotic therapy, and infectious source control. SEVERE SEPSIS CRITERIA: Infectious source: Bronchitis End organ damage indicated by: No endorgan damage at this time SEPSIS MANAGEMENT Time of recognition of sepsis: 1814. Time of recognition of severe sepsis: [No severe sepsis at this time]. Time of recognition of septic shock: [No septic shock at this time]. 3 HOUR BUNDLE Blood cultures x 2 before broad-spectrum antibiotics: [Yes] 30 ml/kg NS bolus [Completed] Initial lactate 1.3 Repeat lactate pending SEPTIC SHOCK ASSESSMENT: [No] lactic acid > 4.0 [No] Persistent hypotension (SBP < 90 or 40 mmHg drop, MAP < 65) despite 30 mL/kg IV fluid bolus VOLUME REASSESSMENT FOR SEPTIC SHOCK: No septic shock at this time PERSISTENT HYPOTENSION TREATMENT: Comfort care [No] Central line [Not Required] Vasopressor started [Not required] I considered further perfusion assessment with CVP measurement, SCVO2, bedside ultrasound volume assessment, passive leg raise, trial of further fluid bolus. And proceeded with [30 ml/kg fluid bolus of NSS, broad spectrum antibiotics, and admission.] I spoke with Dr. Marcelino Stockton who is covering for Dr. Gordillo. The patient will be admitted to a medical surgical bed. CRITICAL CARE Critical care time [35] minutes Emergent fluid management while maintaining close respiratory support. Provision of immediate and broad-spectrum antibiotic therapy. Simultaneous assessment for possible sources in order to direct targeted therapy. Consideration for invasive and chemical support to prevent cardiopulmonary collapse. Critical care time is independent of procedures performed. Departure Diagnosis: Primary Impression: Sepsis Sepsis type: sepsis due to unspecified organism Qualified Codes: A41.9 - Sepsis, unspecified organism Condition: ROSA Li MD Jun 07, 2018 20:22
[2018-06-07 21:40] VITALS: BP 120/58; PULSE 71; RESP 18
--- NOTE | 2018-06-07 22:00 | NUR ---
Admission notes: Patient admitted from E.R, alert and oriented x4, mongolian/belarusian speaking. Patient still have productive cough. Denies any pain at this moment. Oriented patient to his room and informed him to use call light when assistance is needed, patient verbalizes understanding. Wound assessment done with SUDARSHAN Cardoso and patient have Stage II on the right buttocks measuring 1x1 cm. No other complaints at this time. Will call Dr. Marcelino Stockton for admitting orders.
--- NOTE | 2018-06-07 22:10 | NUR ---
Patient's two medication pillbox sent to pharmacy for storage.
[2018-06-07 22:15] VITALS: Ht 167.6 cm; Wt 65.3 kg
[2018-06-07] MEDS ORDERED: WARFARIN 2 MG TAB PO ONE (23:00)
[2018-06-07] MEDS ORDERED: ALBUTEROL/IPRATROPIUM (NEB) 3 ML AMP HHN PRN (23:30)
[2018-06-08 01:37] VITALS: BP 130/60; PULSE 61; RESP 18
--- NOTE | 2018-06-08 05:48 | NUR ---
EOSS: Patient slept most of the night. Intermittently coughing throught the night. No other complaints at this time. Will endorse to morning nurse for continuity of care.
[2018-06-08 07:33] VITALS: BP 150/65; PULSE 70; RESP 20
[2018-06-08] MEDS: INSULIN ASPART [NOVOLOG] 3 ML PEN SC SCH ×4 (07:51→20:27)
[2018-06-08] MEDS: LEVOFLOXACIN 500MG/D5W (PMX) 100 ML IVPB SCH (09:39)
[2018-06-08] MEDS: TAMSULOSIN (SR) 0.4 MG CAP PO SCH (09:39)
[2018-06-08] MEDS: POLYETHYLENE GLYCOL 17 GM PACKET PO SCH (09:39)
[2018-06-08] MEDS: FERROUS SULFATE (EC) 325 MG TAB PO SCH (09:39)
[2018-06-08] MEDS: CEFEPIME 1GM/50 ML (PMX) 50 ML IVPB SCH ×2 (10:00→20:26)
--- NOTE | 2018-06-08 12:06 | NUR ---
WOUND CONSULT@ 1137: 82 year old male admitted with sepsis per medical history. Attempted for skin/wound assessment. Ultrasound study at bedside. Patient able to ambulate with cane per RNAshwini. Assessment and recommendations based on admission photo documentation. Right buttock to ischial area stage 3 pressure injury with surround darkening skin discoloration. Condition present on admission. Shallow full thickness wound. Recommended to cleanse with normal saline. Pat dry. Apply Venelex ointment BID and cover with foam border dressing. Encourage frequent reposition. Apply socks to prevent friction. Discussed plan of care with RN. RN to obtain wound care recommendations from . RAVINDER WhaleyN RN CWOCN
[2018-06-08] MEDS: AMIODARONE 200 MG TAB PO SCH (12:32)
[2018-06-08] MEDS: FINASTERIDE 5 MG TAB PO SCH (12:33)
[2018-06-08] MEDS: POTASSIUM CHLORIDE (SR) 20 MEQ TAB PO SCH (12:33)
--- NOTE | 2018-06-08 14:03 | RADRPT ---
Echocardiogram Report Patient Name: ABISAI GORDON Gender: Male Date: 1935 Study Date: 08-Jun-2018 Pumper Head: nakia Location: 2268A Ref. Physician: ANGELICA GRANDE Quality: Good Procedures: Transthoracic echocardiogram with complete 2D, M-Mode, and doppler examination. Indications: pacemaker. 2D/M Mode Doppler Measurement Value Normal Ranges Measurement Value Normal Ranges LVIDd 2D 3.9 3.5 - 5.6 cm AV Peak Migeul 0.7 m/sec LVIDs 2D 2.8 2.1 - 4.1 cm AV Peak PG 2.0 mmHg LVPWd 2D 0.8 0.6 - 1.1 cm LVOT Peak Miguel 0.6 m/sec IVSd 2D 1.0 0.6 - 1.1 cm LVOT Peak PG 1.0 mmHg AoR Diam 2D 3.0 2.0 - 3.7 cm TR Peak Miguel 3.2 m/sec LA/Ao 2D 1 0 - 1 TR Peak PG 42.0 mmHg LA Dimen 2D 4.4 2.3 - 4.0 cm RVSP 50.0 mmHg Findings Left Ventricle: Lower limits of normal systolic function. Normal left ventricular cavity size. Normal left ventricular wall thickness. Ejection fraction is visually estimated at 50 %. Abnormal Diastolic Function. Right Ventricle: Normal right ventricular size. Normal right ventricular systolic function. Pacemaker right heart. Left Atrium: There is mild enlargement of left atrium. Right Atrium: There is moderate enlargement of right atrium. Mitral Valve: Trace mitral regurgitation. Mitral Valve Bio Prosthesis. Aortic Valve: Aortic Valve Bio Prosthesis. No hemodynamically significant aortic stenosis by doppler. Mild aortic valve regurgitation. Tricuspid Valve: Normal appearance of the tricuspid valve. Estimated peak PA systolic pressure 50 mmHg. There is moderate tricuspid regurgitation. Pericardium: Normal pericardium with no significant pericardial effusion. Aorta: Normal aortic root. IVC: Normal size and no respiratory collapse consistent with elevated right atrial pressure. Conclusions Lower limits of normal systolic function. Normal left ventricular cavity size. Normal left ventricular wall thickness. Ejection fraction is visually estimated at 50 %. Abnormal Diastolic Function. Normal right ventricular size. Normal right ventricular systolic function. Pacemaker right heart. There is mild enlargement of left atrium. There is moderate enlargement of right atrium. Mitral Valve Bio Prosthesis-no significant gradients/regurgitation. Aortic Valve Bio Prosthesis. No hemodynamically significant aortic stenosis by doppler. Mild aortic valve regurgitation. Estimated peak PA systolic pressure 50 mmHg. There is moderate tricuspid regurgitation. Normal pericardium with no significant pericardial effusion. Electronically Signed By: Dung Cordova 08-Jun-2018 14:02: Patient Name: ABISAI GORDON Study Date: 08-Jun-2018 [id number]
--- NOTE | 2018-06-08 14:09 | HP ---
DATE OF ADMISSION: 06/07/2018 REASON FOR ADMISSION: Sepsis, acute bronchitis. HISTORY OF PRESENT ILLNESS: The patient is an 82-year-old male, very well known to me with a history of hypertension, dyslipidemia, aortic and mitral valve replacement surgery, pacemaker place ment, coronary artery disease, BPH, thrombocytopenia, fatty liver disease, possible early liver cirrh osis, aortic stenosis and cholelithiasis, status post tracheostomy and G-tube placement, status post removal in the past. This has happened after his valve surgery. The patient has been overall doing fairly well. He takes Coumadin alternating 4 and 5 mg a day. He presented to [facility] Emergency Department complaining of 2 to 3 days of ongoing fevers, cough. The patient was con cerned that he has possibly pneumonia. In the ER, he was evaluated and was noted to be tachycardic a nd febrile, temperature was up to 101.4 with a heart rate of 110. Lactic acid was actually normal, b ut patient was started on aggressive fluid hydration. He was given antibiotics with ceftriaxone and azithromycin and admitted to the medical/surgical floor for further medical management. Upon questio devyn, the patient is complaining of ongoing cough with phlegm production. He did report having fever s at home. Otherwise, denies any abdominal pain. He does report mild generalized weakness. The pat ie is admitted for further care. PAST MEDICAL HISTORY: Includes hypertension, dyslipidemia, aortic and mitral valve replacement surge ry, coronary artery disease, pacemaker, BPH, thrombocytopenia, fatty liver disease, possible early ci rrhosis, cholelithiasis and aortic stenosis. ALLERGIES: NO KNOWN DRUG ALLERGIES. PAST SURGICAL HISTORY: Mitral valve replacement surgery and aortic valve replacement surgery. He wa s briefly on dialysis also after the surgery out here. He went into respiratory failure and had a tr ach and a PEG briefly. SOCIAL HISTORY: The patient is originally from [place]. He used to drink briefly in the past. He als o snorted cocaine in the past but that was a long time ago. Alcohol is more than 14 years ago. REVIEW OF SYSTEMS: Per HPI. FAMILY HISTORY: Noncontributory. MEDICATIONS: Include: 1. Warfarin 4 mg alternating with 5 mg. 2. Finasteride 5 mg daily. 3. Amiodarone 200 mg daily. 4. Lasix 40 mg daily. 5. Synthroid 50 mcg daily. 6. Ferrous sulfate 325 daily. 7. Metolazone 5 mg daily. 8. Metformin 500 mg daily. 9. Atorvastatin 10 mg at bedtime. 10. Flomax 0.4 mg at bedtime. 11. Potassium chloride 20 mEq b.i.d. 12. Stool softeners twice a day. 13. Eyedrops with Azopt and Travatan as directed. PHYSICAL EXAMINATION: VITAL SIGNS: Temperature 98.5, pulse 61, respirations 18, blood pressure 120/56, saturation 95% on r oom air. GENERAL: The patient is in no acute distress. The patient is coughing frequently. HEENT: Temporal wasting. Pale. NECK: No significant JVD. CARDIOVASCULAR: S1, S2. LUNGS: Clear. ABDOMEN: Soft, nontender. EXTREMITIES: There is trace edema of the lower extremity with hyperpigmentation bilaterally. NEUROLOGIC: Cranial nerves II through XII are grossly intact. The patient is moving all extremities . LABORATORY DATA: White count is 5.8, hemoglobin 10.4, hematocrit 33, platelet count is 97, neutrophi ls 65%, lymphocytes 26%. Chemistry: Sodium 139, potassium 3.9, chloride 107, bicarbonate 26, BUN is 18, creatinine 1.06 and glucose of 98. Lactic acid was 0.7. Troponin was negative at 0.029. INR i s 2.62. Influenza A and B was negative. DIAGNOSTIC DATA: EKG shows atrial flutter with variable AV block, right bundle branch block, left ve ntricular ____ block, 71 beats per minute. Again chest x-ray showed cardiomegaly with calcified athe rosclerosis in the aorta, mild central pulmonary vascular congestion, interstitial prominence in both lungs, scattered atelectasis in the bilateral lower lobes and small pleural effusion. ASSESSMENT AND PLAN: This is an 82-year-old male, very well known to me with history of con gestive heart failure, pacemaker placement, status post valve surgery, hypertension, who presented wi th fevers, cough, suggestive of early sepsis due to respiratory infection. 1. Respiratory. The patient is to be placed on antibiotics for acute bronchitis, possible early pne umonia. The patient is immunocompromised. Check sputum culture and methicillin-resistant Staphyloco ccus aureus of the nares and we will follow. Cough suppressant will be provided including ____ suppl ements. 2. Cardiovascular. Continue anticoagulation with Coumadin, goal INR 2 to 3. We will consult cardio logy for further recommendation. The patient has a pacemaker. Continue diuretic therapy with Lasix and potassium supplements. 3. Benign prostatic hypertrophy. Continue Proscar and Flomax. 4. Glaucoma. Continue all eyedrops. 5. Anemia and thrombocytopenia. This has been chronic, possibly early liver cirrhosis. The patient will be placed on Protonix for gastrointestinal prophylaxis. 6. Continue supportive care. Breathing treatment as needed. Cough suppressants. 7. Diet as tolerated. We will follow the patient closely. Dictated By: ANGELICA NICHOLS/ELVER Conf#: [id number] DID#: [id number] CC: OLIVE DOBBS DO; ISAMAR LE DO;*[facility]*
--- NOTE | 2018-06-08 14:10 | CONS ---
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 Symptoms have improved since admission. Chest x-ray with mild pulmonary vascular congestion, lower extremity with minimal edema. Would give a dose of IV Lasix this afternoon and continue p.o. Lasix 40 mg daily. Coumadin as per INR. Will start beta-dominique if no contraindication. Result Diagram: 06/08/1827 06/08/1827 Results 24hrs Laboratory Tests Test 06/07/18 18:15 06/07/18 18:17 06/07/18 22:33 06/08/18 05:27 White Blood 5.4 # 5.8 Count Red Blood Count 3.30 L 3.41 L Hemoglobin 9.8 L 10.4 L Hematocrit 31.3 L 33.2 L Mean Corpuscular 94.8 97.4 Volume Mean Corpuscular 29.7 30.5 Hemoglobin Mean Corpuscular 31.3 L 31.3 L Hemoglobin Lisy nt Red Cell 14.2 14.6 H Distribution Width Platelet Count 108 L 97 L Mean Platelet 10.4 10.2 Volume Immature 0.400 0.300 Granulocytes % Neutrophils % 78.4 H 64.7 Lymphocytes % 13.9 L 25.6 Monocytes % 7.1 8.8 Eosinophils % 0.0 0.3 Basophils % 0.2 0.3 Nucleated Red 0.0 0.0 Blood Cells % Immature 0.020 0.020 Granulocytes # Neutrophils # 4.2 3.8 Lymphocytes # 0.8 1.5 Monocytes # 0.4 0.5 Eosinophils # 0.0 0.0 Basophils # 0.0 0.0 Nucleated Red 0.0 0.0 Blood Cells # Prothrombin Time 29.2 H 28.7 H Prothrombin Time 2.3 2.2 Ratio INR 2.67 2.62 International Normalized Ratio Activated 48.5 H Partial Thrombop last Time Sodium Level 137 139 Potassium Level 4.7 3.9 Chloride Level 105 107 Carbon Dioxide 24 26 Level Anion Gap 8 6 Blood Urea 20 18 Nitrogen Creatinine 1.03 1.06 Est Glomerular Filtrat Rate mL/min Glucose Level 117 98 POC Venous 1.3 Lactate Calcium Level 8.9 9.0 Troponin I 0.029 Lactic Acid 0.7 Level Test 06/08/18 07:51 06/08/18 12:31 Bedside Glucose 87 78 Consultation Date/Type/Reason Admit Date/Time Jun 07, 2018 at 19:18 Type of Consult cv Reason for Consultation Cardia myopathy Hx of Present Illness This is an 82-year-old male with past medical history of aortic and mitral valve replacement, atrial fibrillation, pacemaker who presents with cough, subjective fevers and chills and body aches over the past 3 days. The cough is productive. He gets occasional shortness of breath with coughing. He does get intermittent lower extremity edema but does not have any currently. Denies any dizziness, lightheadedness or palpitations. He does feel better since his hospital admission 12 point review of systems was performed with all pertinent positives and negatives mentioned above and all else is negative Past Medical History Atrial fibrillation Medical History: congestive heart failure, hypertension Medications Current Medications Ondansetron HCl (Zofran Inj) 4 mg BRIDGE ORDER PRN IV NAUSEA AND/OR VOMITING; Start 06/07/18 at 19:30; Stop 06/08/18 at 19:29 Acetaminophen (Tylenol Tab) 650 mg ER BRIDGE PRN PO MILD PAIN(1-3)OR ELEVATED TEMP; Start 06/07/18 at 19:30; Stop 06/08/18 at 19:29 Levofloxacin/ Dextrose 100 ml @ 100 mls/hr Q24H IVPB Last administered on 06/08/18at 09:39; Admin Dose 100 MLS/HR; Start 06/08/18 at 09:00 Miscellaneous Information Patients own medicat... BID@,16 XX ; Start 06/08/18 at 10:00 Albuterol/ Ipratropium (Duoneb) 3 ml Q6H RESP THERAPY PRN HHN SHORTNESS OF BREATH; Start 06/07/18 at 23:30 Insulin Aspart (Novolog Insulin Pen) NOVOLOG *MODERATE* ALGORITHM WITH MEALS BEDTIME SC ; Start 06/08/18 at 08:00 Atorvastatin Calcium (Lipitor) 10 mg QHS PO ; Start 06/08/18 at 21:00 Ferrous Sulfate (Ferrous Sulfate (Ec)) 325 mg DAILY PO Last administered on 06/08/18 09:39; Admin Dose 325 MG; Start 06/08/18 at 09:00 Finasteride (Proscar) 5 mg DAILY PO Last administered on 06/08/18at 12:33; Admin Dose 5 MG; Start 06/08/18 at 09:00 Latanoprost (Xalatan) 1 drop QHS BOTH EYES ; Start 06/08/18 at 21:00 Levothyroxine Sodium (Synthroid) 50 mcg BEFORE BREAKFAST PO ; Start 06/09/18 at 07:00 Polyethylene Glycol (Miralax) 17 gm DAILY PO Last administered on 06/08/18 09:39; Admin Dose 17 GM; Start 06/08/18 at 09:00 Tamsulosin HCl (Flomax) 0.4 mg DAILY PO Last administered on 06/08/18 09:39; Admin Dose 0.4 MG; Start 06/08/18 at 09:00 Cefepime HCl 50 ml @ 100 mls/hr Q12 IVPB Last administered on 06/08/18at 10:00; Admin Dose 100 MLS/HR; Start 06/08/18 at 09:00 Amiodarone HCl (Cordarone) 200 mg DAILY PO Last administered on 06/08/18 12:32; Admin Dose 200 MG; Start 06/08/18 at 11:00 Furosemide (Lasix) 40 mg DAILY PO ; Start 06/09/18 at 09:00 Potassium Chloride (Klor-Con 20) 20 meq DAILY PO Last administered on 06/08/18 12:33; Admin Dose 20 MEQ; Start 06/08/18 at 11:00 Warfarin Sodium (Coumadin) 4 mg DAILY@17 PO ; Start 06/08/18 at 17:00 Allergies: Coded Allergies: tramadol (Verified Adverse Reaction, Severe, SHAKINESS, 02/28/17) Past Surgical History Past Surgical Hx: other (avr/mvr, PPM) Family History Significant Family History: no pertinent family hx Social History Smoking Status: Former smoker Exam/Review of Systems Vital Signs Vitals Vital Signs Date Temp Pulse Resp B/P (MAP) Pulse Ox O2 O2 Flow FiO2 Time Delivery Rate 06/08/18 97.9 70 20 150/65 97 07:33 (93) 06/07/18 Room Air 20:34 Exam No apparent distress Constitutional: alert, oriented Head: normocephalic Respiratory: other (Coarse breath sounds bilaterally, mild scattered crackles, no wheezing) Cardiovascular: regular rate and rhythm, systolic murmur, other (S1-S2 heard) Gastrointestinal: soft, non-tender, bowel sounds Extremities: edema (Trace) Medications Medications Current Medications Ondansetron HCl (Zofran Inj) 4 mg BRIDGE ORDER PRN IV NAUSEA AND/OR VOMITING; Start 06/07/18 at 19:30; Stop 06/08/18 at 19:29 Acetaminophen (Tylenol Tab) 650 mg ER BRIDGE PRN PO MILD PAIN(1-3)OR ELEVATED TEMP; Start 06/07/18 at 19:30; Stop 06/08/18 at 19:29 Levofloxacin/ Dextrose 100 ml @ 100 mls/hr Q24H IVPB Last administered on 06/08/18at 09:39; Admin Dose 100 MLS/HR; Start 06/08/18 at 09:00 Miscellaneous Information Patients own medicat... BID@10,16 XX ; Start 06/08/18 at 10:00 Albuterol/ Ipratropium (Duoneb) 3 ml Q6H RESP THERAPY PRN HHN SHORTNESS OF BREATH; Start 06/07/18 at 23:30 Insulin Aspart (Novolog Insulin Pen) NOVOLOG *MODERATE* ALGORITHM WITH MEALS BEDTIME SC ; Start 06/08/18 at 08:00 Atorvastatin Calcium (Lipitor) 10 mg QHS PO ; Start 06/08/18 at 21:00 Ferrous Sulfate (Ferrous Sulfate (Ec)) 325 mg DAILY PO Last administered on 06/08/18at 09:39; Admin Dose 325 MG; Start 06/08/18 at 09:00 Finasteride (Proscar) 5 mg DAILY PO Last administered on 06/08/18at 12:33; Admin Dose 5 MG; Start 06/08/18 at 09:00 Latanoprost (Xalatan) 1 drop QHS BOTH EYES ; Start 06/08/18 at 21:00 Levothyroxine Sodium (Synthroid) 50 mcg BEFORE BREAKFAST PO ; Start 06/09/18 at 07:00 Polyethylene Glycol (Miralax) 17 gm DAILY PO Last administered on 06/08/18at 09:39; Admin Dose 17 GM; Start 06/08/18 at 09:00 Tamsulosin HCl (Flomax) 0.4 mg DAILY PO Last administered on 06/08/18at 09:39; Admin Dose 0.4 MG; Start 06/08/18 at 09:00 Cefepime HCl 50 ml @ 100 mls/hr Q12 IVPB Last administered on 06/08/18at 10:00; Admin Dose 100 MLS/HR; Start 06/08/18 at 09:00 Amiodarone HCl (Cordarone) 200 mg DAILY PO Last administered on 06/08/18at 12:32; Admin Dose 200 MG; Start 06/08/18 at 11:00 Furosemide (Lasix) 40 mg DAILY PO ; Start 06/09/18 at 09:00 Potassium Chloride (Klor-Con 20) 20 meq DAILY PO Last administered on 06/08/18at 12:33; Admin Dose 20 MEQ; Start 06/08/18 at 11:00 Warfarin Sodium (Coumadin) 4 mg DAILY@17 PO ; Start 06/08/18 at 17:00 Imaging Imaging ECG with atrial flutter, right bundle branch block, QRS 176 ms, nonspecific ST abnormalities Dung Cordova DO Jun 08, 2018 14:10
[2018-06-08] MEDS ORDERED: FUROSEMIDE 20 MG INJ IV ONE (14:30)
[2018-06-08 15:07] VITALS: BP 143/64; PULSE 68; RESP 20
[2018-06-08] MEDS: WARFARIN 2 MG TAB PO SCH (17:33)
--- NOTE | 2018-06-08 18:50 | NUR ---
END OF SHIFT NOTES: PT STABLE, ALERT & ORIENTED X4. NO DISTRESS NOTED. MRSA/SPUTUM CULTURE COLLECTED AND SENT TO LAB. DENIES PAIN/DISCOMFORT, ALL MEDS GIVEN, ACCU CHECK ACHS, INSTRUCTED PT TO CALL FOR ASSISTANCE. VS WNL.HOURLY ROUNDING. CALL LIGHT WITHIN REACH.ALL NEEDS MET. NO NEW COMPLAINTS.
[2018-06-08 20:00] VITALS: BP 135/62; PULSE 60; RESP 17
[2018-06-08] MEDS: ATORVASTATIN 10 MG TAB PO SCH (20:25)
[2018-06-08] MEDS: LATANOPROST 0.005% 2.5 ML OPH BOTH EYES SCH (20:26)
[2018-06-09] MEDS: PROMETHAZINE/CODEINE 5ML CUP PO PRN (00:42)
[2018-06-09 02:00] VITALS: BP 128/66; PULSE 62; RESP 19
[2018-06-09] MEDS ORDERED: LEVOTHYROXINE 50 MCG TAB PO SCH (07:00)
[2018-06-09 07:54] VITALS: BP 140/60; PULSE 66; RESP 18
[2018-06-09] MEDS: INSULIN ASPART [NOVOLOG] 3 ML PEN SC SCH ×4 (07:58→20:52)
[2018-06-09] MEDS: POTASSIUM CHLORIDE (SR) 20 MEQ TAB PO SCH (08:49)
[2018-06-09] MEDS: BALSAM PERU/CASTOR OIL 60 GM TUBE TOP SCH ×2 (08:49→23:58)
[2018-06-09] MEDS: FERROUS SULFATE (EC) 325 MG TAB PO SCH (08:49)
[2018-06-09] MEDS: FINASTERIDE 5 MG TAB PO SCH (08:49)
[2018-06-09] MEDS: TAMSULOSIN (SR) 0.4 MG CAP PO SCH (08:49)
[2018-06-09] MEDS: FUROSEMIDE 40 MG TAB PO SCH (08:50)
[2018-06-09] MEDS: AMIODARONE 200 MG TAB PO SCH (08:50)
[2018-06-09] MEDS: CEFEPIME 1GM/50 ML (PMX) 50 ML IVPB SCH ×2 (08:52→20:46)
[2018-06-09] MEDS: POLYETHYLENE GLYCOL 17 GM PACKET PO SCH (08:52)
[2018-06-09] MEDS: LEVOFLOXACIN 500MG/D5W (PMX) 100 ML IVPB SCH (09:52)
--- NOTE | 2018-06-09 11:45 | CONS ---
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 Would continue p.o. Lasix, will order magnesium supplementation to maintain above 2.0. Coumadin as per INR. Result Diagram: 06/09/187 06/09/18 0427 Results 24hrs Laboratory Tests Test 06/08/18 12:31 06/08/18 17:32 06/08/18 20:24 06/09/18 04:27 Bedside Glucose 78 99 105 White Blood Count 4.6 #L Red Blood Count 3.04 L Hemoglobin 9.2 L Hematocrit 28.5 L Mean Corpuscular 93.8 Volume Mean Corpuscular 30.3 Hemoglobin Mean Corpuscular 32.3 Hemoglobin Concent Red Cell 14.2 Distribution Width Platelet Count 101 L Mean Platelet 10.0 Volume Immature 0.400 Granulocytes % Neutrophils % 63.6 Lymphocytes % 25.1 Monocytes % 10.0 Eosinophils % 0.7 Basophils % 0.2 Nucleated Red 0.0 Blood Cells % Immature 0.020 Granulocytes # Neutrophils # 2.9 Lymphocytes # 1.2 Monocytes # 0.5 Eosinophils # 0.0 Basophils # 0.0 Nucleated Red 0.0 Blood Cells # Prothrombin Time 28.4 H Prothrombin Time 2.2 Ratio INR International 2.66 Normalized Ratio Activated 55.[address] Time Sodium Level 138 Potassium Level 4.4 Chloride Level 105 Carbon Dioxide 26 Level Anion Gap 7 Blood Urea 24 H Nitrogen Creatinine 1.18 Est Glomerular Filtrat Rate mL/min Glucose Level 86 Hemoglobin A1c 5.5 Calcium Level 9.0 Phosphorus Level 4.0 Magnesium Level 1.7 Iron Level 64 Total Iron Binding 289 Capacity Percent Iron 22 Saturation Total Bilirubin 0.2 Direct Bilirubin 0.00 Indirect Bilirubin 0.2 Aspartate Amino 26 Transf (AST/SGOT) Alanine 17 Aminotransferase ( ALT/SGPT) Alkaline 138 H Phosphatase Total Protein 7.5 Albumin 3.4 Globulin 4.10 H Albumin/Globulin 0.82 Ratio Thyroid 15.100 H Stimulating Hormone (TSH) Test 06/09/18 07:54 Bedside Glucose 80 Consultation Date/Type/Reason Admit Date/Time Jun 07, 2018 at 19:18 Initial Consult Date Type of Consult cv 24 HR Interval Summary Free Text/Dictation Feeling better, denies shortness of breath, cough is improving with less phlegm production Exam/Review of Systems Vital Signs Vitals Vital Signs Date Temp Pulse Resp B/P (MAP) Pulse Ox O2 O2 Flow FiO2 Time Delivery Rate 06/09/18 98.2 66 18 140/60 94 Room Air 07:54 (86) Intake and Output 06/08/18 06/08/18 06/09/18 1515:00 23:00 07:00 IntakeIntake Total 1130 ml 610 ml 120 ml OutputOutput Total 600 ml 3600 ml 1000 ml BalanceBalance 530 ml -2990 ml -880 ml Exam No apparent distress Constitutional: alert, oriented Head: normocephalic Respiratory: other (Coarse breath sounds bilaterally, no wheezing) Cardiovascular: regular rate and rhythm (With occasional irregularities), systolic murmur Gastrointestinal: soft, non-tender, bowel sounds Extremities: edema (Trace) Medications Medications Current Medications Levofloxacin/ Dextrose 100 ml @ 100 mls/hr Q24H IVPB Last administered on 06/09/18 09:52; Admin Dose 100 MLS/HR; Start 06/08/18 at 09:00 Miscellaneous Information Patients own medicat... BID@10,16 XX ; Start 06/08/18 at 10:00 Albuterol/ Ipratropium (Duoneb) 3 ml Q6H RESP THERAPY PRN HHN SHORTNESS OF BREATH; Start 06/07/18 at 23:30 Insulin Aspart (Novolog Insulin Pen) NOVOLOG *MODERATE* ALGORITHM WITH MEALS BEDTIME SC ; Start 06/08/18 at 08:00 Atorvastatin Calcium (Lipitor) 10 mg QHS PO Last administered on 06/08/18at 20:25; Admin Dose 10 MG; Start 06/08/18 at 21:00 Ferrous Sulfate (Ferrous Sulfate (Ec)) 325 mg DAILY PO Last administered on 06/09/18 08:49; Admin Dose 325 MG; Start 06/08/18 at 09:00 Finasteride (Proscar) 5 mg DAILY PO Last administered on 06/09/18 08:49; Admin Dose 5 MG; Start 06/08/18 at 09:00 Latanoprost (Xalatan) 1 drop QHS BOTH EYES Last administered on 06/08/18 20:26; Admin Dose 1 DROP; Start 06/08/18 at 21:00 Levothyroxine Sodium (Synthroid) 50 mcg BEFORE BREAKFAST PO Last administered on 06/09/18 06:19; Admin Dose 50 MCG; Start 06/09/18 at 07:00 Polyethylene Glycol (Miralax) 17 gm DAILY PO Last administered on 06/08/18 09:39; Admin Dose 17 GM; Start 06/08/18 at 09:00 Tamsulosin HCl (Flomax) 0.4 mg DAILY PO Last administered on 06/09/18 08:49; Admin Dose 0.4 MG; Start 06/08/18 at 09:00 Cefepime HCl 50 ml @ 100 mls/hr Q12 IVPB Last administered on 06/09/18 08:52; Admin Dose 100 MLS/HR; Start 06/08/18 at 09:00 Amiodarone HCl (Cordarone) 200 mg DAILY PO Last administered on 06/09/18 08:50; Admin Dose 200 MG; Start 06/08/18 at 11:00 Furosemide (Lasix) 40 mg DAILY PO Last administered on 06/09/18 08:50; Admin Dose 40 MG; Start 06/09/18 at 09:00 Potassium Chloride (Klor-Con 20) 20 meq DAILY PO Last administered on 06/09/18 08:49; Admin Dose 20 MEQ; Start 06/08/18 at 11:00 Warfarin Sodium (Coumadin) 4 mg DAILY@17 PO Last administered on 06/08/18 17:33; Admin Dose 4 MG; Start 06/08/18 at 17:00 Carvedilol (Coreg) 3.125 mg BID PO Last administered on 06/09/18 08:50; Admin Dose 3.125 MG; Start 06/08/18 at 21:00 Promethazine HCl/ Codeine (Phenergan/ Codeine) 5 ml Q4H PRN PO COUGH Last admin istered on 06/09/18 00:42; Admin Dose 5 ML; Start 06/08/18 at 23:00 Dung Cordova DO Jun 09, 2018 11:45
[2018-06-09] MEDS ORDERED: MAGNESIUM SULFATE 2 GM/50 ML 50 ML IVPB ONE (12:00)
[2018-06-09 14:29] VITALS: BP 131/59; PULSE 57; RESP 18
[2018-06-09] MEDS: WARFARIN 2 MG TAB PO SCH (17:19)
--- NOTE | 2018-06-09 18:30 | NUR ---
End of Shift Summary: Patient is alert & orientated, vital signs stable, no signs of acute distress, no c/o pain. Patient admitted for sepsis secondary to early pneumonia. Patient is on IV ABX. Wound care and dressing change provided, patient placed on low air-loss mattress. Accu checks AC/HS, insulin coverage per sliding scale. Plan is to continue current care, possible discharge tomorrow. Patient instructed to call for assistance, call light within reach, bed alarm on, rounded on hourly, will continue to monitor patient status.
[2018-06-09 19:35] VITALS: BP 118/56; PULSE 63; RESP 16
[2018-06-09] MEDS: ATORVASTATIN 10 MG TAB PO SCH (20:45)
[2018-06-09] MEDS: LATANOPROST 0.005% 2.5 ML OPH BOTH EYES SCH (21:00)
[2018-06-09] MEDS ORDERED: AZOP1OP10 BOTH EYES (21:07)
[2018-06-10 01:46] VITALS: BP 121/58; PULSE 67; RESP 18
--- NOTE | 2018-06-10 05:40 | NUR ---
shift note patient afebrile. vs taken and recorded. accucheck done, no sliding coverage noted for novolog. intermittent non productive cough noted. venelex applied as ordered. due meds given. upper and lower dentures noted. pink container for dentures at bedside. bed alarm on. hourly rounds done
--- NOTE | 2018-06-10 06:19 | PQ ---
Date/Time of Note Date/Time of Note DATE: 06/10/18 TIME: 06:[address] Gordillo , A review of the medical record found a need for documentation clarification. 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 Condition present on admission" please specify if you agree with wound care nurse assessment. Thank you Please clarify a diagnosis being treated. To facilitate accurate and complete coding, please gael ( x ) the suspected diagnosis that apply: ( x ) YES ( ) NO ( ) Other Please provide your response by clicking edit document,make your choice (x ) , click ok/save and finally click sign. You may alsodocument your responseinyour progress notes. Thank you for your time. Leydi STOKESBS,CCS,CCDS [facility] and Coding Services Room # 1525 - Coding [address] [address] LEYDI TREJO Jun 10, 2018 06:19 ANGELICA GORDILLO MD Jun 10, 2018 09:35
--- NOTE | 2018-06-10 06:26 | NUR ---
SYNTHROID PT WANTED TO TAKE SYNTHROID WITH BREAKFAST. ENDORSE ACCORDINGLY.
[2018-06-10 07:18] VITALS: BP 124/57; PULSE 60; RESP 16
--- NOTE | 2018-06-10 07:43 | PN ---
DATE: 06/09/2018 SUBJECTIVE: The patient seen. Patient had a coughing spell yesterday improved Robitussin with codei ne. The patient is overall doing better today. Sputum culture did reveal gram-negative rods, susu wei results. I appreciate Dr. Cordova, cardiology consultation. The patient received an extra dose of IV Lasix yesterday overall with good response. The patient appears to be doing better. PHYSICAL EXAMINATION: VITAL SIGNS: Temperature 98.2, pulse 66, respirations 18, blood pressure 140/60, saturation 94%. GENERAL: The patient is in no acute distress. HEENT: Temporal wasting, frail. CARDIOVASCULAR: S1 and S2, positive. LUNGS: Clear. ABDOMEN: Soft, nontender. EXTREMITIES: No clubbing, cyanosis, or edema. LABORATORY DATA: White count 4.6, hemoglobin 9.2, hematocrit 29, platelet count of 101, neutrophils 64%, 25%. Chemistry: Sodium is 138, potassium 4.4, bicarbonate 26, BUN is 24, creatinine 1.18 , glucose of 86. TSH is high at 15.1. Last glucose of 90 and 80. Iron levels are normal. 64 % saturation of iron 22, TIBC normal at 29. INR is 2.66. MEDICATIONS: 1. Lasix 40 mg daily. 2. Synthroid 50 mcg daily. 3. Phenergan with codeine q.4h. p.r.n. 4. Lipitor 10 mg at bedtime. 5. Xalatan eyedrops at bedtime. 6. Coreg 3.125 b.i.d. 7. Coumadin 4 mg daily. 8. Amiodarone 200 mg daily. 9. KCl 20 units daily. 10. Levaquin 500 IV q.24h. 11. 325 daily. 12. Proscar 5 mg daily. 13. MiraLax 17 grams daily. 14. Flomax 0.4 daily. 15. Cefepime 1 gram q.12h. 16. Insulin Aspart as directed. 17. DuoNebs p.r.n. ASSESSMENT AND PLAN: This is an 82-year-old male, very well known to me with history of CHF , pacemaker placement, status post valve surgery, hypertension who presented with fever, cough sugges tive of early sepsis due to respiratory infection/bronchitis. 1. Acute bronchitis. Continue above antibiotics. Follow up sputum culture results. MRSA of the na res is negative. 2. Cardiovascular. The patient with possible mild exacerbation of her CHF status post IV Lasix x1. Continue oral Lasix. Clinically, appears to be euvolemic. Continue Coumadin with goal INR between 2 and 3. 3. Benign prostatic hypertrophy. Continue Proscar and Flomax. 4. Glaucoma. Continue all eyedrops. 5. Anemia thrombocytopenia. This is chronic. 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 Continue P rotonix for GI prophylaxis. 6. Out of bed activity as tolerated. 7. Continue cough suppressant and supportive care. 8. Diet as tolerated. DISPOSITION: Soon pending. Sputum cultures and overall patient's condition. We will follow. Dictated By: ANGELICA NICHOLS/ELVER Conf#: [id number] DID#: [id number] CC: ISAMAR LE DO;*EndCC*
[2018-06-10] MEDS: INSULIN ASPART [NOVOLOG] 3 ML PEN SC SCH ×4 (08:00→20:24)
[2018-06-10] MEDS: TAMSULOSIN (SR) 0.4 MG CAP PO SCH (08:12)
[2018-06-10] MEDS: FERROUS SULFATE (EC) 325 MG TAB PO SCH (08:12)
[2018-06-10] MEDS: POTASSIUM CHLORIDE (SR) 20 MEQ TAB PO SCH (08:12)
[2018-06-10] MEDS: FUROSEMIDE 40 MG TAB PO SCH (08:13)
[2018-06-10] MEDS: AMIODARONE 200 MG TAB PO SCH (08:13)
[2018-06-10] MEDS: LEVOTHYROXINE 75 MCG TAB PO SCH (08:14)
[2018-06-10] MEDS: FINASTERIDE 5 MG TAB PO SCH (08:14)
[2018-06-10] MEDS: BALSAM PERU/CASTOR OIL 60 GM TUBE TOP SCH ×2 (08:15→21:00)
[2018-06-10] MEDS: CEFEPIME 1GM/50 ML (PMX) 50 ML IVPB SCH ×2 (08:15→20:24)
[2018-06-10] MEDS: POLYETHYLENE GLYCOL 17 GM PACKET PO SCH (08:16)
[2018-06-10] MEDS: LEVOFLOXACIN 500MG/D5W (PMX) 100 ML IVPB SCH (09:56)
[2018-06-10] MEDS ORDERED: AZOP1OP10 BOTH EYES (10:11)
[2018-06-10] MEDS ORDERED: DOCUSATE SODIUM 100 MG CAP PO PRN (13:30)
--- NOTE | 2018-06-10 13:37 | CONS ---
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 Would continue p.o. Lasix. Coumadin as per INR. Labs have already been ordered for tomorrow. Result Diagram: 06/09/18 0427 06/09/18 0427 Results 24hrs Laboratory Tests Test 06/09/18 17:22 06/09/18 20:51 06/10/18 08:01 06/10/18 12:31 Bedside Glucose 100 124 91 91 Consultation Date/Type/Reason Admit Date/Time Jun 07, 2018 at 19:18 Initial Consult Date Type of Consult cv 24 HR Interval Summary Free Text/Dictation Feeling better, denies shortness of breath. Still with cough but improving. Denies palpitations or chest pain Exam/Review of Systems Vital Signs Vitals Vital Signs Date Temp Pulse Resp B/P (MAP) Pulse Ox O2 O2 Flow FiO2 Time Delivery Rate 06/10/18 97.9 60 16 124/57 98 07:18 (79) 06/09/18 Room Air 14:29 Intake and Output 06/09/18 06/09/18 06/10/18 1515:00 23:00 07:00 IntakeIntake Total 720 ml 730 ml OutputOutput Total 600 ml 1300 ml BalanceBalance 120 ml -570 ml Exam No apparent distress, family at bedside Constitutional: alert, oriented Head: normocephalic Respiratory: other (Coarse breath sounds bilaterally, no wheezing) Cardiovascular: regular rate and rhythm (With occasional irregularities), systolic murmur Gastrointestinal: soft, non-tender, bowel sounds Extremities: edema (Trace) Medications Medications Current Medications Levofloxacin/ Dextrose 100 ml @ 100 mls/hr Q24H IVPB Last administered on 06/10/18at 09:56; Admin Dose 100 MLS/HR; Start 06/08/18 at 09:00 Miscellaneous Information Patients own medicat... BID@10,16 XX ; Start 06/08/18 at 10:00 Albuterol/ Ipratropium (Duoneb) 3 ml Q6H RESP THERAPY PRN HHN SHORTNESS OF BREATH; Start 06/07/18 at 23:30 Insulin Aspart (Novolog Insulin Pen) NOVOLOG *MODERATE* ALGORITHM WITH MEALS BEDTIME SC ; Start 06/08/18 at 08:00 Atorvastatin Calcium (Lipitor) 10 mg QHS PO Last administered on 06/09/18 20:45; Admin Dose 10 MG; Start 06/08/18 at 21:00 Ferrous Sulfate (Ferrous Sulfate (Ec)) 325 mg DAILY PO Last administered on 06/10/18 08:12; Admin Dose 325 MG; Start 06/08/18 at 09:00 Finasteride (Proscar) 5 mg DAILY PO Last administered on 06/10/18 08:14; Admin Dose 5 MG; Start 06/08/18 at 09:00 Latanoprost (Xalatan) 1 drop QHS BOTH EYES Last administered on 06/09/18 21:00; Admin Dose 1 DROP; Start 06/08/18 at 21:00 Polyethylene Glycol (Miralax) 17 gm DAILY PO Last administered on 06/10/18 08:16; Admin Dose 17 GM; Start 06/08/18 at 09:00 Tamsulosin HCl (Flomax) 0.4 mg DAILY PO Last administered on 06/10/18 08:12; Admin Dose 0.4 MG; Start 06/08/18 at 09:00 Cefepime HCl 50 ml @ 100 mls/hr Q12 IVPB Last administered on 06/10/18 08:15; Admin Dose 100 MLS/HR; Start 06/08/18 at 09:00 Amiodarone HCl (Cordarone) 200 mg DAILY PO Last administered on 06/10/18 08:13; Admin Dose 200 MG; Start 06/08/18 at 11:00 Furosemide (Lasix) 40 mg DAILY PO Last administered on 06/10/18 08:13; Admin Dose 40 MG; Start 06/09/18 at 09:00 Potassium Chloride (Klor-Con 20) 20 meq DAILY PO Last administered on 06/10/18 08:12; Admin Dose 20 MEQ; Start 06/08/18 at 11:00 Warfarin Sodium (Coumadin) 4 mg DAILY@17 PO Last administered on 06/09/18 17:19; Admin Dose 4 MG; Start 06/08/18 at 17:00 Carvedilol (Coreg) 3.125 mg BID PO Last administered on 06/10/18 08:14; Admin Dose 3.125 MG; Start 06/08/18 at 21:00 Promethazine HCl/ Codeine (Phenergan/ Codeine) 5 ml Q4H PRN PO COUGH Last administered on 06/09/18 00:42; Admin Dose 5 ML; Start 06/08/18 at 23:00 Levothyroxine Sodium (Synthroid) 75 mcg BEFORE BREAKFAST PO Last administered on 06/10/18 08:14; Admin Dose 75 MCG; Start 06/10/18 at 07:00 Brinzolamide (Azopt) 1 drop TID BOTH EYES ; Start 06/10/18 at 14:30 Docusate Sodium (Colace) 100 mg BID PRN PO CONSTIPATION; Start 06/10/18 at 13:30 Dung Cordova DO Jun 10, 2018 13:37
--- NOTE | 2018-06-10 13:42 | PN ---
DATE: 06/10/2018 SUBJECTIVE: The patient seen, still has a cough. Case discussed with the patient. Overall clinical ly improving. A sputum culture came back as Klebsiella pneumoniae sensitive to Levaquin and cefotaxi me, intermediate to cefazolin. PHYSICAL EXAMINATION: VITAL SIGNS: Temperature 97.9, pulse 60, respirations 16, blood pressure 124/57, saturation 98% on r oom air. GENERAL: No acute distress. HEENT: Temporal wasting. Weak looking. CARDIOVASCULAR: S1, S2. LUNGS: Decreased bilaterally, otherwise clear. ABDOMEN: Soft, nontender. EXTREMITIES: No clubbing, cyanosis, or edema. LABORATORY DATA: No CBC today. Last glucose of 191, 91 to 124. TSH was: 15.1. His Synthroid was in creased from 50 mcg to 75 mcg. MEDICATIONS: 1. Synthroid 75 mcg daily. 3. Lasix 40 mg daily. 4. Phenergan with codeine p.r.n. 5. Lipitor 10 mg at bedtime. 6. Xalatan eyedrops at bedtime. 7. Coreg 3.125 b.i.d. 8. Coumadin 4 mg daily. 9. Amiodarone 200 mg daily. 10. KCl 20 mEq daily. 11. Levaquin 5 mg IV daily. 12. Silvadene 325 daily. 13. Proscar 5 mg daily. 14. MiraLax 17 grams daily. 15. Flomax 0.4 daily. 16. Cefepime 1 gram q.12h. 17. Insulin Aspart per sliding scale. 18. DuoNeb every 6 hours p.r.n. ASSESSMENT AND PLAN: This is an 82-year-old male, very well known to me with history of CHF , pacemaker, status post valve surgery, hypertension, thrombocytopenia, presented with fever, cough, early sepsis, was found to have acute bronchitis. 1. Acute bronchitis, organism Klebsiella pneumoniae. Continue above antibiotics and discharging georgette orrow on oral Levaquin. 2. MRSA screen negative. 3. Constipation. Stool softeners will be provided. 4. Cardiovascular. The patient with mild congestive heart failure exacerbation, more for diastolic dysfunction, status post IV Lasix x1, now on oral Lasix 40 daily. Continue Coumadin 4 mg. Follow up INR. Goal INR at around 2.5. 4. Benign prostatic hypertrophy. Continue Proscar and Flomax. 5. Glaucoma. Continue all eyedrops. 6. Anemia, thrombocytopenia. Observe. Currently, no need for transfusion. Follow up tomorrow, CBC . 7. Out of bed therapy with physical therapy. DISPOSITION: In the a.m., as patient is improving. Dictated By: ANGELICA NICHOLS/ELVER Conf#: [id number] DID#: [id number]
[2018-06-10 14:12] VITALS: BP 121/60; PULSE 67; RESP 18
[2018-06-10] MEDS: BRINZOLAMIDE 1% 10ML OPH BOTH EYES SCH ×3 (16:22→20:28)
[2018-06-10] MEDS: WARFARIN 2 MG TAB PO SCH (17:36)
--- NOTE | 2018-06-10 19:44 | NUR ---
End of shift summary: Patient in stable condition .V.S WNL Wound care done for today .No s/s of any acute distress . Planning discharge tomorrow Full report given to next shift RN
[2018-06-10 19:52] VITALS: BP 105/68; PULSE 61; RESP 18
[2018-06-10] MEDS: LATANOPROST 0.005% 2.5 ML OPH BOTH EYES SCH (20:24)
[2018-06-10] MEDS: ATORVASTATIN 10 MG TAB PO SCH (20:24)
[2018-06-11] MEDS: PROMETHAZINE/CODEINE 5ML CUP PO PRN (00:27)
[2018-06-11 01:30] VITALS: BP 133/61; PULSE 67; RESP 18
[2018-06-11] MEDS: LEVOTHYROXINE 75 MCG TAB PO SCH (06:10)
--- NOTE | 2018-06-11 06:45 | NUR ---
NO CHANGE IN LOC. STILL WITH COUGH AND SPUTUM PRESENT. BS AT HS WAS WNL, ASYMPTOMATIC. CONTINUE POC INCLUDING DM MANAGEMENT, POSSIBLE CHANGING OF IV ATB TO PO, AND EVENTUALLY D/C HOME.
[2018-06-11 07:38] VITALS: BP 131/59; PULSE 72; RESP 16
[2018-06-11] MEDS: INSULIN ASPART [NOVOLOG] 3 ML PEN SC SCH ×2 (08:00→12:00)
[2018-06-11] MEDS: FINASTERIDE 5 MG TAB PO SCH (08:14)
[2018-06-11] MEDS: POTASSIUM CHLORIDE (SR) 20 MEQ TAB PO SCH (08:14)
[2018-06-11] MEDS: TAMSULOSIN (SR) 0.4 MG CAP PO SCH (08:14)
[2018-06-11] MEDS: FERROUS SULFATE (EC) 325 MG TAB PO SCH (08:14)
[2018-06-11] MEDS: AMIODARONE 200 MG TAB PO SCH (08:14)
[2018-06-11] MEDS: CEFEPIME 1GM/50 ML (PMX) 50 ML IVPB SCH (08:14)
[2018-06-11] MEDS: BRINZOLAMIDE 1% 10ML OPH BOTH EYES SCH ×2 (08:15→12:21)
[2018-06-11] MEDS: LEVOFLOXACIN 500MG/D5W (PMX) 100 ML IVPB SCH (08:15)
[2018-06-11] MEDS: FUROSEMIDE 40 MG TAB PO SCH (08:15)
[2018-06-11] MEDS: BALSAM PERU/CASTOR OIL 60 GM TUBE TOP SCH (08:15)
[2018-06-11] MEDS: POLYETHYLENE GLYCOL 17 GM PACKET PO SCH (09:00)
[2018-06-11] MEDS ORDERED: NA POLYST SULFON 15 GM/60 ML BTL PO SCH (10:00)
[2018-06-11 14:08] VITALS: BP 102/50; PULSE 54; RESP 16
--- NOTE | 2018-06-11 14:38 | PDOCDIS ---
Discharge Instructions CONDITION [id number] Patient Condition: [id number] Stable HOME CARE INSTRUCTIONS: [id number] Special Diet: [id number] CARB CONTROLLED ACTIVITY: [id number] Activity Restrictions: [id number] Slowly Increase Activity FOLLOW UP/APPOINTMENTS Follow-up Plan see attached prescription, follow up with PCP within 1 week ANGELICA GRANDE MD Jun 11, 2018 14:38
[2018-06-11] MEDS ORDERED: LEVO500T48 PO (14:40)
[2018-06-11] MEDS ORDERED: LEVO50TA7 PO (14:40)
--- NOTE | 2018-06-11 17:00 | NUR ---
DISCHARGE NOTES PT D/C TO HOME VIA WHEELCHAIR ACCOMPANIED BY FAMILY. IV REMOVED, CATHETER INTACT. DISCHARGE INSTRUCTIONS PROVIDED WITH THE OPPORTUNITY TO ASK QUESTIONS. INFORMED PT TO FOLLOW UP WITH PCP IN 1-2 WEEKS. PT'S PILL BOX WAS RETURNED TO PT FROM PHARMACY. PRESCRIPTION WAS GIVEN TO PT. PT IS TO TAKE MEDICATIONS PRESCRIBED. INFORMED PT TO CALL 911 OR GO TO THE NEAREST EMERGENCY ROOM IF EXPERIENCING CHEST PAIN, SHORTNESS OF BREATH, DIFFICULTY SPEAKING, VISION CHANGES, CONFUSION,OR ANY DISCOMFORT. PT VERBALIZES UNDERSTANDING OF DISCHARGE INSTRUCTIONS. PT ALERT, ORIENTED, AND STABLE UPON DISCHARGE.
--- NOTE | 2018-06-11 20:43 | DS ---
DATE OF ADMISSION: 06/07/2018 DATE OF DISCHARGE: 06/11/2018 REASON FOR ADMISSION: Sepsis, acute bronchitis. HOSPITAL COURSE: The patient is an 82-year-old male with history of hypertension, dyslipide ivis. He is status post aortic and mitral valve replacement surgery, pacemaker placement, coronary ar jerilyn disease, BPH, thrombocytopenia, fatty liver disease, possible early liver cirrhosis, aortic sten osis and cholelithiasis, status post tracheostomy and G-tube in the past after his valve surgery at [facility]. The patient does take Coumadin alternating 4 and 5 mg. He presented to [facility] complaining of 2 to 3 days of ongoing fever and cough. He was concerned about pneumonia. In [facility] ER, he was tachycardic and febrile up to 101.4 with a heart rate of 110. Lactic acid was actually normal, but he was noted to be likely early sepsis. The patient received hydration and admitted for further care and received Rocephin and azithromycin. During his hospitalization, I called for Dr. Raffi pruett, the collar turner, due to patient's pacemaker. The patient was started on antibiotics with Lev aquin and cefepime. This patient is immunocompromised with previous hospitalization. Ultimately spu grace culture result shows Klebsiella pneumoniae sensitive to cefotaxime, Cipro, gentamicin, Levaquin, tobramycin, and Bactrim. Patient overall has improved, potassium slightly increased to 5.6, likely d ue to over diuresis and mildly worsening kidney function, but overall the patient is doing much asif r. The patient's INR today is 2.0 so the next dose of Coumadin should be 5 mg. The patient will be discharged with the following medications: 1. Levaquin 500 mg daily for 7 days. 2. Amiodarone 200 mg daily. 3. Atorvastatin 10 mg at bedtime. 4. Azopt eyedrops as directed 5. Ferrous sulfate 325 daily. 6. Finasteride 5 mg daily. 7. Lasix 40 mg daily. 8. Latanoprost eyedrops as directed. 9. Metformin 500 mg b.i.d. 10. MiraLax 17 grams daily. 11. Flomax 0.4 daily. 12. Warfarin 5 mg daily. 13. Synthroid dose increased from 50 to 75 mcg daily as his TSH was 15 FINAL DIAGNOSES: 1. Acute bronchitis. 2. Early sepsis. 3. Congestive heart failure, more for diastolic dysfunction. 4. Valvular heart disease. 5. Iron deficiency anemia. 6. Hypothyroidism, dose increased. 7. Benign prostatic hypertrophy. 8. Generalized weakness. 9. Osteoarthritis. 10. Glaucoma. 11. Anemia. 12. Thrombocytopenia, actually improved. The patient to follow up with PCP. I told him to check his INR soon. He does have a machine at home to check it. Otherwise, he can come to my office. Diet 2 gram sodium. Activity as tolerated. Dictated By: ANGELICA NICHOLS/ELVER Conf#: [id number] DID#: [id number] CC: ISAMAR LE DO;*[facility]*
[2018-06-12] MEDS ORDERED: CEFEPIME 1GM/50 ML (PMX) 50 ML IVPB SCH (09:00)
[2018-06-12] MEDS ORDERED: LEVOFLOXACIN 250MG/D5W (PMX) 50 ML IVPB SCH (09:00)
== END 2018-06-11 16:40 | disposition home or self-care (01) | DRG 871 ==
LOC: E/R 17:39 → 2NE 19:18
PROVIDERS: ADMIT Internal Medicine Nephrology; ATTEND Internal Medicine Nephrology
DX: A41.9 Sepsis, unspecified organism (principal); L89.313 Pressure ulcer of right buttock, stage 3; I50.43 Acute on chronic combined systolic (congestive) and diastolic (congestive) heart failure; I48.92 Unspecified atrial flutter; I11.0 Hypertensive heart disease with heart failure; Z95.0 Presence of cardiac pacemaker; J20.8 Acute bronchitis due to other specified organisms; B96.1 Klebsiella pneumoniae [K. pneumoniae] as the cause of diseases classified elsewhere; K59.00 Constipation, unspecified; N40.0 Benign prostatic hyperplasia without lower urinary tract symptoms; D64.9 Anemia, unspecified; D69.6 Thrombocytopenia, unspecified; H40.9 Unspecified glaucoma; I48.91 Unspecified atrial fibrillation; Z79.02 Long term (current) use of antithrombotics/antiplatelets
CPT/HCPCS: 36415; 71045; 80048; 80053; 82962; 83036; 83540; 83605; 83735; 84100; 84443; 84484; 85025; 85610; 85730; 87040; 87070; 87081; 87400; 93005; 93306; 96374; 96375; J0456; J0692; J0696; J1815; J1940; J1956; J3475; J7030

== ENCOUNTER 2018-08-06 23:56 | Emergency (ER) | payer MEDICARE, OTHER ==
[~2018-08-06] VITALS: Ht 172.7 cm; Wt 63.6 kg
[~2018-08-06 23:56] MED LIST changes: +AZOP1OP10 BOTH EYES; +LEVO500T48 PO; -METO5TAB65 PO; -POTA20TA15 PO; -SPIR25TA PO
[2018-08-07 00:01] VITALS: Ht 172.7 cm; Wt 63.6 kg
--- NOTE | 2018-08-07 00:15 | ERD ---
ER Documentation Chief Complaint Chief Complaint C/O COUGH X3 WEEKS HPI The patient is a 82-year-old male, presenting to the ER, because of intermittent dry cough for the last 3 weeks, seen by his physician Dr. Grande 2 days ago and t reated with Levaquin. He denies fever, chills, neck pain, chest pain with vomiting/radiation/exertion/diaphoresis, only dyspnea with cough, denies abdominal pain, vomiting, dysuria, diarrhea. He does not smoke nor drink Past medical history: PPS, dyslipidemia, diabetes mellitus, anemia, hypertens ion, CAD, cholelithiasis, history of CHF, hypothyroidism, umbilical hernia, pancytopenia Past surgical history: Aortic valve replacement and mitral valve replacement and pacemaker ROS All systems reviewed and are negative except as per history of present illness. Medications Home Meds Active Scripts Levofloxacin* (Levaquin*) 500 Mg Tablet, 500 MG PO DAILY for 7 Days, TAB Prov:ANGELICA GRANDE MD 06/11/18 Levothyroxine Sodium* (Levothyroxine Sodium*) 50 Mcg Tablet, 75 MCG PO BEFORE BREAKFAST, #30 TAB Prov:ANGELICA GRANDE MD 06/11/18 Reported Medications Brinzolamide (Azopt) 10 Ml Drops.susp, 10 ML BOTH EYES TID 06/10/18 Brinzolamide (Azopt) 10 Ml Drops.susp, 1 DROP BOTH EYES DAILY 06/09/18 Polyethylene Glycol* (Polyethylene Glycol*) 17 Gm Powd.pack, 17 GM PO DAILY, #30 PACKET 02/28/17 Latanoprost (Latanoprost) 2.5 Ml Drops, 1 DROP BOTH EYES QHS, #1 BOTTLE 08/09/16 Finasteride* (Finasteride*) 5 Mg Tablet, 5 MG PO DAILY, TAB 08/09/16 Warfarin Sodium* (Coumadin*) 3 Mg Tablet, 3 MG PO DAILY, TAB DEPENDS HOW HIS BLOOD TEST 08/09/16 Warfarin Sodium* (Coumadin*) 2 Mg Tablet, 2 MG PO DAILY, TAB DEPENDS HOW HIS BLOOD TEST 08/09/16 Atorvastatin Calcium (Atorvastatin Calcium) 10 Mg Tablet, 10 MG PO QHS, #30 TAB 08/09/16 Tamsulosin Hcl* (Tamsulosin Hcl*) 0.4 Mg Cap.er.24h, 0.4 MG PO DAILY, CAP 08/09/16 Metformin* (Glucophage*) 500 Mg Tab, 500 MG PO WITH LUNCH DINNER, #60 TAB 08/09/16 Furosemide* (Furosemide*) 40 Mg Tablet, 40 MG PO DAILY, TAB 08/09/16 Ferrous Sulfate* (Ferrous Sulfate*) 325 Mg Tabec, 325 MG PO DAILY, TAB 08/09/16 Amiodarone Hcl* (Amiodarone Hcl*) 200 Mg Tablet, 200 MG PO DAILY, #30 TAB 08/09/16 Allergies Allergies: Coded Allergies: tramadol (Verified Adverse Reaction, Severe, SHAKINESS, 02/28/17) PMhx/Soc History of Surgery: Yes (open heart sx recent one last 2015) Anesthesia Reaction: No Hx Neurological Disorder: No Hx Respiratory Disorders: No Hx Cardiac Disorders: No Hx Psychiatric Problems: No Hx Miscellaneous Medical Probl: Yes (coughing ) Hx Alcohol Use: Yes Hx Substance Use: No Hx Tobacco Use: Yes Physical Exam Vitals Vital Signs Date Temp Pulse Resp B/P (MAP) Pulse Ox O2 O2 Flow FiO2 Time Delivery Rate 08/07/18 Nasal 2 00:43 Cannula 08/07/18 98.0 77 23 183/72 99 00:01 (109) Physical Exam Const: No acute distress. Head: Atraumatic. Eyes: Normal Conjunctiva. ENT: Normal External Ears, Nose and Mouth. Neck: Full range of motion. No meningismus. Resp: Clear to auscultation bilaterally. Cardio: Regular rate and rhythm. Abd: Soft, non distended, normal bowel sounds, non tender. Skin: No petechiae or rashes. Back: No midline or flank tenderness. Ext: No cyanosis, or edema. Neur: Awake and alert. No focal deficit Psych: Normal Mood and Affect. Result Diagram: 08/07/18 0038 08/07/18 0038 Results 24 hrs Laboratory Tests Test 08/07/18 00:38 08/07/18 00:45 08/07/18 01:12 White Blood Count 3.1 10^3/ul Red Blood Count 3.52 10^6/ul Hemoglobin 10.5 g/dl Hematocrit 33.7 % Mean Corpuscular Volume 95.7 fl Mean Corpuscular Hemoglobin 29.8 pg Mean Corpuscular Hemoglobin Concent 31.2 g/dl Red Cell Distribution Width 14.1 % Platelet Count 95 10^3/UL Mean Platelet Volume 10.1 fl Immature Granulocytes % 0.300 % Neutrophils % 47.9 % Lymphocytes % 37.7 % Monocytes % 11.8 % Eosinophils % 1.6 % Basophils % 0.7 % Nucleated Red Blood Cells % 0.0 /100WBC Immature Granulocytes # 0.010 10^3/ul Neutrophils # 1.5 10^3/ul Lymphocytes # 1.2 10^3/ul Monocytes # 0.4 10^3/ul Eosinophils # 0.1 10^3/ul Basophils # 0.0 10^3/ul Nucleated Red Blood Cells # 0.0 10^3/ul Prothrombin Time 23.2 Sec Prothrombin Time Ratio 1.8 INR International Normalized Ratio 2.05 Activated Partial Thromboplast Time 37.5 Sec Sodium Level 139 mmol/L Potassium Level 5.1 mmol/L Chloride Level 102 mmol/L Carbon Dioxide Level 24 mmol/L Anion Gap 13 Blood Urea Nitrogen 25 mg/dl Creatinine 1.48 mg/dl Est Glomerular Filtrat Rate mL/min mL/min Glucose Level 95 mg/dl Calcium Level 9.5 mg/dl Total Bilirubin 0.3 mg/dl Direct Bilirubin 0.00 mg/dl Indirect Bilirubin 0.3 mg/dl Aspartate Amino Transf (AST/SGOT) 44 IU/L Alanine Aminotransferase (ALT/SGPT) 25 IU/L Alkaline Phosphatase 153 IU/L Troponin I 0.019 ng/ml B-Type Natriuretic Peptide 1220 PG/ML Total Protein 9.7 g/dl Albumin 4.5 g/dl Globulin 5.20 g/dl Albumin/Globulin Ratio 0.86 Lipase 300 U/L Bedside Glucose 98 mg/dL Bedside Urine pH (LAB) 5.5 Bedside Urine Protein (LAB) Trace Bedside Urine Glucose (UA) Negative Bedside Urine Ketones (LAB) Negative Bedside Urine Blood Negative Bedside Urine Nitrite (LAB) Negative Bedside Urine Leukocyte Esterase (L Negative Procedures/MDM [place] [address] Radiology Main Line: [phone] DIAGNOSTIC IMAGING REPORT Patient: ABISAI GORDON : 1935 Age: 82 Sex: M MR #: [id number] DOS: 08/07/18 0037 Ordering MD: OLIVE ALDRICH MD Location: E/R Room/Bed: PROCEDURE: XR Chest. CLINICAL INDICATION: Shortness of breath. TECHNIQUE: AP portable views of the chest were obtained. COMPARISON: 06/07/2018 FINDINGS: There is mild cardiomegaly. There is a dual lead pacemaker in place with leads in the region of the right atrium right ventricle. There are postoperative changes from prior CABG. There is moderate atherosclerotic calcification of the thoracic aorta. There is mild prominence of the central pulmonary vasculature. The peripheral vascular markings are distinct. There is blunting of the bilateral costophrenic angles, concerning for possible small pleural effusions versus chronic scarring. The lungs are clear without consolidation. No signs of pneumothorax are seen. The osseous structures and soft tissues are unremarkable. IMPRESSION: 1. No evidence for active cardiopulmonary disease. 2. Mild cardiomegaly with central pulmonary vascular congestion. No evidence of interstitial pulmonary edema. 3. Moderate atherosclerotic calcification of the thoracic aorta. 4. Blunting of the costophrenic angles, stable compared to 06/07/2018 which may be related to trace pleural effusions versus scarring. RPTAT: HGAS .Filemon Vo MD, MD Date Time Electronically viewed and signed by .Filemon Vo MD, MD on 08/07/2018 01:53 .S/ CC: OLIVE ALDRICH MD [phone] EKG: Read by emergency physician Rate/Rhythm: paced rhythm at 71 beats/min No further attempt to interpret the EKG MEDICAL MAKING DECISION: The patient is a 82-year-old male, presenting with acute bronchitis, is above outpatient follow-up The differential diagnoses considered include but are not limited to asthma, COPD, pneumonia, pulmonary embolus, pleural effusion, congestive heart failure. Departure Diagnosis: Primary Impression: Bronchitis Condition: Good Comments He was advised to continue antibiotic and the cough medicine I discussed the findings with the patient. I advised the patient to follow-up with the primary physician in about 2-3 days, sooner if needed and return if any concern. Disclaimer: Inadvertent spelling and grammatical errors are likely due to EHR/dictation software use and do not reflect on the overall quality of patient care. Also, please note that the electronic time recorded on this note does not necessarily reflect the actual time of the patient encounter. OLIVE ALDRICH MD Aug 07, 2018 00:15
[2018-08-07] MEDS ORDERED: METO5TAB65 PO (02:48)
[2018-08-07 02:50] VITALS: BP 128/57; PULSE 68; RESP 19
== END 2018-08-07 03:16 | disposition home or self-care (01) ==
LOC: E/R 23:56
DX: J40 Bronchitis, not specified as acute or chronic (principal); E11.9 Type 2 diabetes mellitus without complications; I11.0 Hypertensive heart disease with heart failure; I50.9 Heart failure, unspecified; I25.10 Atherosclerotic heart disease of native coronary artery without angina pectoris; E03.9 Hypothyroidism, unspecified; Z95.0 Presence of cardiac pacemaker; Z79.84 Long term (current) use of oral hypoglycemic drugs
CPT/HCPCS: 36415; 71045; 80053; 81003; 82962; 83690; 83880; 84484; 85025; 85610; 85730; 93005

== ENCOUNTER 2018-08-26 07:29 | Inpatient (IN) | payer MEDICARE, OTHER ==
[2018-08-25 11:53] VITALS: BMI 21.3
--- NOTE | 2018-08-25 18:28 | PREOPHP ---
DATE OF ADMISSION: 08/26/2018 The patient is to be admitted on 08/26/2018. The patient is to be undergo elective right inguinal he rnia repair surgery by Dr. David Le. HISTORY OF PRESENT ILLNESS: The patient is an 82-year-old male, very well known to me with history of hypertension, dyslipidemia, aortic and mitral valve replacement surgery, pacemaker placeme nt, coronary artery disease, BPH, thrombocytopenia, fatty liver disease, aortic stenosis, cholelithia sis status post trach and PEG, status post valve surgery. Valves were removed and the patient has be en recuperating well. He has been taking Coumadin since. The patient presented to my office for pre operative evaluation on 08/04/2018. The patient was seen also by the chief medical technologist, Dr. Chapin Kellogg for cardiac clearance. The patient denies any chest pain or shortness of breath. Denies any fever o r chills. Denies any weakness or numbness. The patient is ambulatory. The patient was noted to hav e bothersome inguinal hernia as he underwent imaging tests which confirmed that. The patient was ref erred to Dr. Le, who offered him to undergo surgery. The patient agreed and patient is to under go the above surgery. PAST MEDICAL HISTORY: Includes hypertension, dyslipidemia, aortic and mitral valve replacement surge ry, coronary artery disease, pacemaker, BPH, thrombocytopenia, fatty liver disease, questionable orly y liver cirrhosis, cholelithiasis and aortic stenosis. ALLERGIES: NO KNOWN DRUG ALLERGIES. PAST SURGICAL HISTORY: Mitral valve replacement surgery, aortic valve replacement surgery, previousl y on dialysis, complication after his previous valve surgery, status post trach and EEG which were re moved. SOCIAL HISTORY: Originally from [place]. He drank alcohol briefly in the past and cocaine in the past long time ago. Alcohol more than 15 years ago. REVIEW OF SYSTEMS: Per HPI. CURRENT MEDICATIONS: Include: 1. Warfarin. 2. Finasteride. 3. Amiodarone. 4. Lasix. 5. Synthroid. 6. Ferrous sulfate. 7. Metolazone. 8. Metformin. 9. Atorvastatin. 10. Flomax. 11. Potassium chloride. 12. Azopt eyedrops. 13. Travatan eyedrops. Recently, warfarin was discontinued and I placed him on Lovenox 80 mg subcutaneously daily until surg mahendra. PHYSICAL EXAMINATION: VITAL SIGNS: The most recent visit is 08/19/2018. Preop blood pressure 124/55, pulse 60, respiratio ns 16. GENERAL: The patient is in no acute distress. HEENT: Slightly pale. CARDIOVASCULAR: S1 and S2, regular rate. LUNGS: Clear. ABDOMEN: Soft, nontender. EXTREMITIES: Trace edema of the lower extremities. Some hyperpigmentation of the legs. LABORATORY DATA: Noted on 08/04/2018: White count is 3.3, hemoglobin 10.3, hematocrit 31, platelet counts 112, neutrophils 47%, lymphocytes 39%. Sodium is 137, potassium 4.8, chloride 104, bicarb is 20, BUN is 26, creatinine 1.19, glucose of 96. Alkaline phosphatase slightly high at 150, AST 42, AL T 32. TSH is 5.28. Albumin 4.0. The patient has been checking his INR. Recently, it was 1.6 but t his is while on Coumadin. This was discontinued since and the patient is only on Lovenox. DIAGNOSTIC DATA: Chest x-ray the most recent one documented and the patient was actually in the ER o n 08/07/2018 which showed no evidence for active cardiopulmonary disease. There is mild cardiomegaly with central pulmonary vascular congestion, no evidence of interstitial pulmonary edema. There is m oderate atherosclerotic calcification of the thoracic aorta, blunting of the costophrenic angle, stab le compared to 06/07/2018, which may be related to trace pleural effusion versus scarring. ELECTROCARDIOGRAM: EKG was actually done in the ER on 08/07/2018 shows paced rhythm at 71 beats per minute. ASSESSMENT AND PLAN: This is an 82-year-old male with history of extensive cardiac history including valve replacement surgery, anemia, hypothyroidism, congestive heart failure, peripheral vas cular disease, who has pelvic discomfort consistent with hernia. The patient is to undergo right ing uinal hernia repair surgery. 1. Preop. The patient with high risk factors as he has coronary artery disease, multiple cardiac hi story to undergo moderate risk surgery which is abdominal surgery. The patient has been seen by Dr. Kellogg. The patient is medically optimized. The patient denies any chest pain or shortness of breat h and patient is ambulatory. No further cardiac workup is recommended prior to surgery. We will mon itor patient closely in the postoperative state. Monitor for fluid overload state or any other sympt oms. 2. The patient's Coumadin was discontinued and he was started on Lovenox to be taken up to day prior to surgery. Home health is assisting him with Lovenox injection. 3. Anemia. Monitor H and H post-procedure. The patient overall understands the risks and is willing to take it. I discussed with him. Dictated By: ANGELICA NICHOLS/ELVER Conf#: [id number] DID#: [id number] CC: DAVID LE MD;*EndCC*
[2018-08-26] VITALS (24 sets, daily range): BP systolic 100–159; BP diastolic 38–66; PULSE 62–81; RESP 15–25; Ht 172.7 cm; Wt 63.9 kg
[~2018-08-26] VITALS: Ht 172.7 cm; Wt 63.9 kg
[~2018-08-26 07:29] MED LIST changes: +CEFAZOLIN 2 GM/50 ML (PMX) 50 ML IVPB SCH; +METO5TAB65 PO
[2018-08-26] MEDS ORDERED: LIDOCAINE 1% (MPF) 30 ML INJ ONE (08:55)
[2018-08-26] MEDS ORDERED: BUPIVACAINE 0.5%/EPI (SDV) 30 ML INJ ONE (08:55)
[2018-08-26] MEDS ORDERED: POLYMYXIN/BACITRACIN 1L IRRIG ONE (08:55)
[2018-08-26] MEDS ORDERED: DOCU250C58 PO (08:58)
[2018-08-26] MEDS ORDERED: TRAV4OP25 BOTH EYES (08:58)
--- NOTE | 2018-08-26 08:59 | PREAC ---
Date/Time of Note Date/Time of Note DATE: 08/26/18 TIME: 08:58 Anesthesia Eval and Record Evaluation Time Pre-Procedure Interview DATE: 08/26/18 TIME: 08:58 Age 82 Sex male NPO: 8 hrs Preoperative diagnosis Right inguinal hernia, ventral hernia Planned procedure Laparoscopic vs open right inguinal hernia and ventral hernia repair Past Medical History Past Medical History: Includes Cardio: HTN, Dyslipidemia, CAD, CABG, PPM/AICD, Other (S/P aortic and mitral valve replacement) Endo: Diabetes, Hypothyroid Renal: CKD, BPH Heme: Anemia, Thrombocytopenia Surgery & Anesthesia Issues No known issue Meds Anticoagulation: No Beta Shanell within 24 hr: No Reason Beta Shanell not given: Pt. not on B-Shanell Active Scripts Levofloxacin* (Levaquin*) 500 Mg Tablet, 500 MG PO DAILY for 7 Days, TAB Prov:ANGELICA GRANDE MD 06/11/18 Levothyroxine Sodium* (Levothyroxine Sodium*) 50 Mcg Tablet, 75 MCG PO BEFORE BREAKFAST, #30 TAB Prov:ANGELICA GRANDE MD 06/11/18 Reported Medications Docusate Sodium* (Colace*) 250 Mg Capsule, 250 MG PO BID, #60 CAP 08/26/18 Travoprost* (Travatan*) 0.004%-2.5 Ml Opht, 1 DROP BOTH EYES QHS, #1 BOTTLE 08/26/18 Metolazone* (Metolazone*) 5 Mg Tablet, 5 MG PO QPM, TAB 08/07/18 Brinzolamide (Azopt) 10 Ml Drops.susp, 1 DROP BOTH EYES TID 06/09/18 Polyethylene Glycol* (Polyethylene Glycol*) 17 Gm Powd.pack, 17 GM PO DAILY, #30 PACKET 02/28/17 Finasteride* (Finasteride*) 5 Mg Tablet, 5 MG PO DAILY, TAB 08/09/16 Warfarin Sodium* (Coumadin*) 3 Mg Tablet, 3 MG PO DAILY, TAB DEPENDS HOW HIS BLOOD TEST 08/09/16 Warfarin Sodium* (Coumadin*) 2 Mg Tablet, 2 MG PO DAILY, TAB DEPENDS HOW HIS BLOOD TEST 08/09/16 Atorvastatin Calcium (Atorvastatin Calcium) 10 Mg Tablet, 10 MG PO QHS, #30 TAB 08/09/16 Tamsulosin Hcl* (Tamsulosin Hcl*) 0.4 Mg Cap.er.24h, 0.4 MG PO DAILY, CAP 08/09/16 Metformin* (Glucophage*) 500 Mg Tab, 500 MG PO WITH LUNCH DINNER, #60 TAB 08/09/16 Furosemide* (Furosemide*) 40 Mg Tablet, 40 MG PO DAILY, TAB 08/09/16 Ferrous Sulfate* (Ferrous Sulfate*) 325 Mg Tabec, 325 MG PO DAILY, TAB 08/09/16 Amiodarone Hcl* (Amiodarone Hcl*) 200 Mg Tablet, 200 MG PO DAILY, #30 TAB 08/09/16 Discontinued Reported Medications Brinzolamide (Azopt) 10 Ml Drops.susp, 10 ML BOTH EYES TID 06/10/18 Latanoprost (Latanoprost) 2.5 Ml Drops, 1 DROP BOTH EYES QHS, #1 BOTTLE 08/09/16 Current Medications Cefazolin Sodium/ Dextrose 50 ml @ 100 mls/hr PREOP IVPB ; Start 08/26/18 at 06:00; Stop 08/26/18 at 17:00 Meds reviewed: Yes Allergies Coded Allergies: tramadol (Verified Adverse Reaction, Severe, SHAKINESS, 02/28/17) Allergies Reviewed: Yes Labs/Studies Labs Reviewed: Reviewed by anesthesiologist test: N/A Studies: 2D Echo (EF: 50%) Pre-procedure Exam Last vitals Vital Signs Date Temp Pulse Resp B/P (MAP) Pulse Ox O2 O2 Flow FiO2 Time Delivery Rate 08/26/18 97.3 81 16 151/59 100 08:46 (89) Airway: Adequate mouth opening Mallampati: Mallampati I Teeth: Abnormal (Full denture) Lung: Normal Heart: Normal ASA Physical Status ASA physical status: 3 Emergency: None Planned Anesthetic General/MAC: ETT Planned Pain Management Parenteral pain med Pre-operative Attestations Prior to commencing anesthesia and surgery, the patient was re-evaluated, there was verification of: *The patient's identity *The results of appropriate recent lab work and preoperative vital signs *The above evaluation not changing prior to induction *Anesthetic plan, risk benefits, alternative and complications discussed with patient/family; questions answered; patient/family understands, accepts and wishes to proceed. OCTAVIA KELLEY MD Aug 26, 2018 08:59
[2018-08-26] MEDS ORDERED: EPHEDrine SULFATE 50 MG/5 ML SYG ONE (09:20)
[2018-08-26] MEDS ORDERED: LIDOCAINE 2% (SDV) 5 ML INJ ONE (09:29)
[2018-08-26] MEDS ORDERED: GLYCOPYRROLATE 0.4 MG INJ ONE ×2 (09:29→11:52)
[2018-08-26] MEDS ORDERED: SUCCINYLCHOLINE CHLORIDE 100 MG/5 ML SYG IV ONE (09:29)
[2018-08-26] MEDS ORDERED: ROCURONIUM 50 MG INJ ONE (09:29)
[2018-08-26] MEDS ORDERED: PROPOFOL 20 ML ONE (09:29)
[2018-08-26] MEDS ORDERED: MEPERIDINE 100 MG INJ ONE (09:30)
[2018-08-26] MEDS ORDERED: CEFAZOLIN 1 GM INJ ONE (09:30)
[2018-08-26] MEDS ORDERED: hydrALAzine 20 MG INJ IV PRN (11:30)
[2018-08-26] MEDS ORDERED: METOCLOPRAMIDE 10 MG INJ IV PRN (11:30)
[2018-08-26] MEDS ORDERED: FENTAnyl 50 MCG/ML VIAL IV PRN ×3 (11:30)
[2018-08-26] MEDS ORDERED: HYDROmorphONE 1 MG/5 ML IV SYRINGE IV PRN ×3 (11:30)
[2018-08-26] MEDS ORDERED: LABETALOL HCL 20MG INJ IV PRN (11:30)
[2018-08-26] MEDS ORDERED: OXYCODONE/ACETAMINOPHEN (5/325) TAB PO PRN ×2 (11:30)
[2018-08-26] MEDS ORDERED: MEPERIDINE 25 MG INJ IV PRN (11:30)
[2018-08-26] MEDS ORDERED: EPHEDrine SULFATE 50 MG/5 ML SYG IV PRN (11:30)
[2018-08-26] MEDS ORDERED: ONDANSETRON 4 MG INJ IV PRN ×2 (11:30→12:30)
[2018-08-26] MEDS ORDERED: MIDAZOLAM 1 MG/ML 2 ML INJ IV PRN (11:30)
[2018-08-26] MEDS ORDERED: DIPHENHYDRAMINE 50 MG INJ IV PRN (11:30)
[2018-08-26] MEDS ORDERED: NEOSTIGMINE 10 MG INJ ONE (11:52)
--- NOTE | 2018-08-26 12:14 | HPN ---
Date/Time of Note Date/Time of Note DATE: 08/26/18 TIME: 12:14 Interval H&P Admission Note Pt. seen H&P reviewed: No system changes DAVID LE MD Aug 26, 2018 12:14
--- NOTE | 2018-08-26 12:20 | OPR ---
Date/Time of Note Date/Time of Note DATE: 08/26/18 TIME: 12:14 Operative Report Free Text/Dictation Preoperative Diagnosis 1. Right inguinal hernia 2. Ventral hernia 3. Possible left inguinal hernia Postoperative Diagnosis 1. Right large indirect inguinal hernia 2. Ventral hernia Operation/Procedure Performed 1. Laparoscopic right inguinal herniorrhaphy 2. Ventral herniorrhaphy 3. Local anesthetic [place], [id number] 4. Laparoscopic guided bilateral transversus abdominis plane block Surgeon: David Le MD Food Service Cashier: Hanny Byrnes NP Anesthesia Type: general + local + regional Anesthesiologist: SULEIMAN Thorpe MD Estimated Blood Loss: 20 ml's Transfusion: None Specimen: Ventral hernia content Grafts/Implants: 10 x [address] Bard mesh 6.4 cm ventral patch Tubes/Drains: None Complications: None Pt Condition Post Procedure: stable Disposition: PACU Indications: Symptomatic hernias here for surgical repair. Risks include but are not limited to bleeding, infection, abscess, seroma, hematoma, damage to intestines, damage to spermatic structures, loss of testicle, sensation loss to the thigh and scrotum, recurrence of hernia, chronic pain, need for re-operations or further surgeries, MD, stroke, PE, DVT, pneumonia, organ failures, or even . Procedure: Patient was brought and placed supine on the operating table SCDs were placed, preoperative antibiotics were administered, all pressure points were well- padded, both arms were tucked, and after induction of anesthesia patient was prepped and draped in usual sterile fashion and timeout was performed. Incision was made in the supraumbilical region. Using blunt dissection through the ventral hernia abdomen was entered 12 mm port was applied and abdomen was insufflated to 15 mmHg with CO2. Laparoscopy was performed with a 5 mm 30 s cope. No injuries were identified. The right inguinal hernia was identified to be indirect and large. On either side of the abdomen, lateral to the rectus, avoiding the inferior epigastric vessels, 2 5 mm ports were inserted under direct visualization. All port sites were injected with quarter percent Marcaine with epi and 1% lidocaine prior to any incisions. Bilateral transversus abdominis plane block was performed under laparoscopic visualization to aid with pain control intra-and postoperatively. Patient was placed in Trendelenburg and right side up. The peritoneum was opened over the side of the hernia and the peritoneum was dissected off of the abdominal wall, inferior epigastric vessels, and spermatic structures/round ligament. The hernia included the appendix and the cecum which were all gently dissected with the sac out of the hernia. Care was taken not to injure any of the structures. The pubic tubercle was identified medially. There was complete hemostasis. Ventral light ST mesh was placed at the inguinal site. Mesh was secured to the tubercle medially, anterior to the abdominal wall, and laterally to the abdominal wall using securestrap tacker. The peritoneum was pulled over the mesh and secured to itself fully covering the mesh using the same tacker. 12 mm made port site fascia was closed with Endo Close and 0 Vicryl in a [id number] manner after ventral patch was inserted to cover the hernia and secured to the fascia with 0 Vicryl through each leaf. Ports and CO2 were removed under direct visualization. There was complete hemostasis. Wounds were thoroughly irrigated skin was closed with 4-0 Monocryl in subcuticular fashion. Dermabond was applied. Patient was extubated and transferred to recovery room in stable condition and all counts were correct and the end of the operation 2. DAVID LE MD Aug 26, 2018 12:20
[2018-08-26] MEDS ORDERED: traMADol 50 MG TAB PO PRN (12:30)
[2018-08-26] MEDS ORDERED: ACETAMINOPHEN 500 MG TAB PO PRN (12:30)
[2018-08-26] MEDS ORDERED: traMADol 50 MG TAB NGT PRN (12:30)
[2018-08-26] MEDS: BRINZOLAMIDE 1% 10ML OPH BOTH EYES SCH ×2 (13:00→21:00)
[2018-08-26] MEDS: ACCU-CHEK XX SCH ×2 (17:30→21:03)
[2018-08-26] MEDS: metFORMIN 500 MG TAB PO SCH (18:27)
[2018-08-26] MEDS: D5W-0.45 NACL + KCL 20 MEQ 1,000 ML IV SCH (18:32)
[2018-08-26] MEDS: DOCUSATE SODIUM 250 MG CAP PO SCH (21:00)
[2018-08-26] MEDS ORDERED: TRAVOPROST 0.004% 2.5 ML OPH BOTH EYES SCH (21:00)
[2018-08-26] MEDS ORDERED: METOLAZONE 5 MG TAB PO SCH (21:00)
[2018-08-26] MEDS: ATORVASTATIN 10 MG TAB PO SCH (21:02)
[2018-08-26] MEDS: HYDROmorphONE 0.5 MG/0.5 ML SYG IV PRN (22:59)
--- NOTE | 2018-08-27 00:13 | PN ---
DATE: 08/26/2018 See my H and P dictated yesterday. The patient was now status post laparoscopic right inguinal herniorrhaphy and ventral herniorrhaphy. The patient tolerated the procedure well and now transferred to the medical/surgical floor for close monitoring. This patient has extensive cardiac history. We decided to admit him for monitoring. P ost-procedure, the patient overall is very weak. Case discussed with Dr. Le. PHYSICAL EXAMINATION: VITAL SIGNS: Temperature 98.6, pulse 64, respirations 18, blood pressure 102/38, saturation 96%. GENERAL: The patient in no acute distress. Mild pale. HEENT: Temporal wasting. CARDIOVASCULAR: S1, S2, regular rate. LUNGS: Clear. ABDOMEN: Soft. He has abdominal binder. EXTREMITIES: No clubbing, cyanosis, or edema. LABORATORY DATA: No new labs here. INR was done prior to surgery, which was 1.15. MEDICATIONS: Reviewed include: 1. Amiodarone 200 mg daily. 2. Ferrous sulfate 325 daily. 3. Proscar 5 mg daily. 4. Lasix 40 mg daily. 5. Levaquin 500 mg daily. 6. Flomax 0.4 daily. 7. Synthroid 25 mcg daily. 8. Lipitor 10 mg at bedtime. 9. Colace 250 b.i.d. 10. Zaroxolyn 5 mg q.p.m. 11. 12. Metformin 500 with lunch. 13. . 14. Zofran p.r.n. 15. Tylenol p.r.n. 16. Dilaudid p.r.n. 17. Fluids at 60 mL an hour D5 normal saline as directed. 18. Cefazolin as directed. ASSESSMENT AND PLAN: This is an 82-year-old male with extensive cardiac history, status pos t mitral and aortic valve replacement surgery, history of anemia, hypothyroidism, and tendency for CH F, who presented with a hernia status post repair. 1. Postoperative day #0. Continue supportive care. Diet to be advanced slowly as tolerated, physic al therapy and pain control to be provided. The patient will be placed on DVT prophylaxis and GI pro phylaxis. 2. Cardiovascular. Resume cardiac meds. No evidence of fluid overload state. Monitor electrolytes . Cardiology to be consulted with Dr. Kellogg. 3. Gastrointestinal: The patient will place on Protonix for GI prophylaxis. 4. Anemia. Monitor hemoglobin and hematocrit postoperatively, transfuse p.r.n. 5. BPH. Continue Flomax. Monitor urine output post surgery. 6. Hypothyroidism. Continue Synthroid. 7. Glaucoma. Continue all eyedrops. 8. Borderline diabetes. Continue Accu-Cheks with insulin coverage, glucose level of 116 the most re cent one. 9. Incentive spirometer to be provided. We will monitor the patient closely postoperatively. DISPOSITION: Hopefully soon. Dictated By: ANGELICA NICHOLS/NTS Conf#: [id number] DID#: [id number] CC: DAVID LE MD;*EndCC*
[2018-08-27 01:31] VITALS: BP 135/62; PULSE 61; RESP 18
[2018-08-27] MEDS: HYDROmorphONE 0.5 MG/0.5 ML SYG IV PRN ×5 (04:00→20:41)
[2018-08-27] MEDS ORDERED: LEVOTHYROXINE 50 MCG TAB PO SCH ×2 (06:00→07:00)
[2018-08-27] MEDS ORDERED: PANTOPRAZOLE 40 MG INJ IV SCH (06:00)
[2018-08-27] MEDS: PANTOPRAZOLE (EC) 40 MG TAB PO SCH (06:08)
[2018-08-27] MEDS: D5W-0.45 NACL + KCL 20 MEQ 1,000 ML IV SCH (06:09)
[2018-08-27] MEDS: LEVOTHYROXINE 75 MCG TAB PO SCH (06:56)
[2018-08-27 07:29] VITALS: BP 146/61; PULSE 60; RESP 18
[2018-08-27] MEDS: ACCU-CHEK XX SCH ×3 (08:22→17:30)
[2018-08-27] MEDS: DOCUSATE SODIUM 250 MG CAP PO SCH ×2 (08:51→20:41)
[2018-08-27] MEDS: FUROSEMIDE 40 MG TAB PO SCH (08:51)
[2018-08-27] MEDS: FERROUS SULFATE (EC) 325 MG TAB PO SCH (08:51)
[2018-08-27] MEDS: TAMSULOSIN (SR) 0.4 MG CAP PO SCH (08:51)
[2018-08-27] MEDS: FINASTERIDE 5 MG TAB PO SCH ×2 (09:00→11:42)
[2018-08-27] MEDS: BRINZOLAMIDE 1% 10ML OPH BOTH EYES SCH ×3 (09:00→21:00)
[2018-08-27] MEDS ORDERED: LEVOFLOXACIN 500 MG TAB PO SCH (09:00)
[2018-08-27] MEDS: AMIODARONE 200 MG TAB PO SCH ×2 (09:00→11:42)
--- NOTE | 2018-08-27 09:15 | CONS ---
Assessment/Plan Assessment/Plan Hospital Course (Demo Recall) 1. Valvular heart disease with history of aortic and mitral valve replacement 2. atrial fibrillation 3. Status post hernia repair 4. Diabetes 5. Hypertension 6. Dyslipidemia 7. BPH Recommendation: We will continue with the current cardiac care. Patient heart is under good control. Anticoagulation to be resumed as soon as okay from surgical standpoint Postop care as per surgery to be continued. Diabetic management as per internal medicine Outpatient cardiology follow-up with the heart group who have been following him for a long time. Thank you for his referral. We will continue to follow along with you until Dr. Cordova returns JEAN PAUL CRAIG MD [facility] Consultation Date/Type/Reason Admit Date/Time Aug 26, 2018 at 17:04 Date of Consultation: Aug 27, 2018 Type of Consult Cardiology Reason for Consultation Valvular heart disease Requesting Provider: ANGELICA GRANDE MD Date/Time of Note DATE: 08/27/18 TIME: 09:07 Hx of Present Illness Interventional cardiology consultation note Chief complaint: Status post hernia repair Reason for consult: Valvular heart disease history of atrial fibrillation cerebral permanent pacemaker History of present illness: Thank you for this referral. History was obtained from the patient from extensive review of the old chart and discussion with the physician and staff. This is a pleasant 82-year-old gentleman with significant cardiac history who underwent elective right inguinal hernia repair yesterday. Patient has a history of valvular heart disease with multiple heart valve surgeries including bioprosthetic aortic and mitral valve replacement most recently apparently in 2016. Patient also has a history of atrial fibrillation history of permanent pacemaker placement is on Coumadin at home. Surgery has undergone uneventful with no reported chest pain or pressure no cardiac complication. At this point denies any palpitation shortness of breath dyspnea to me. He just complains of difficulty with urinating. Has mild abdominal discomfort at the site of surgery. Because of his significant cardiac disorder were kindly asked to evaluate and treat. 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 History of respiratory failure previously on tracheostomy is improved. History of renal failure previously on dialysis hypertension diabetes dyslipidemia Past surgical history: History of multiple valve surgery most recent one in 2016 history of tracheostomy in the past Review of system: Patient denies all others except for above-mentioned Past Medical History Home Meds Active Scripts Levofloxacin* (Levaquin*) 500 Mg Tablet, 500 MG PO DAILY for 7 Days, TAB Prov:ANGELICA GRANDE MD 06/11/18 Levothyroxine Sodium* (Levothyroxine Sodium*) 50 Mcg Tablet, 75 MCG PO BEFORE BREAKFAST, #30 TAB Prov:ANGELICA GRANDE MD 06/11/18 Reported Medications Docusate Sodium* (Colace*) 250 Mg Capsule, 250 MG PO BID, #60 CAP 08/26/18 Travoprost* (Travatan*) 0.004%-2.5 Ml Opht, 1 DROP BOTH EYES QHS, #1 BOTTLE 08/26/18 Metolazone* (Metolazone*) 5 Mg Tablet, 5 MG PO QPM, TAB 08/07/18 Brinzolamide (Azopt) 10 Ml Drops.susp, 1 DROP BOTH EYES TID 06/09/18 Polyethylene Glycol* (Polyethylene Glycol*) 17 Gm Powd.pack, 17 GM PO DAILY, #30 PACKET 02/28/17 Finasteride* (Finasteride*) 5 Mg Tablet, 5 MG PO DAILY, TAB 08/09/16 Warfarin Sodium* (Coumadin*) 3 Mg Tablet, 3 MG PO DAILY, TAB DEPENDS HOW HIS BLOOD TEST 08/09/16 Warfarin Sodium* (Coumadin*) 2 Mg Tablet, 2 MG PO DAILY, TAB DEPENDS HOW HIS BLOOD TEST 08/09/16 Atorvastatin Calcium (Atorvastatin Calcium) 10 Mg Tablet, 10 MG PO QHS, #30 TAB 08/09/16 Tamsulosin Hcl* (Tamsulosin Hcl*) 0.4 Mg Cap.er.24h, 0.4 MG PO DAILY, CAP 08/09/16 Metformin* (Glucophage*) 500 Mg Tab, 500 MG PO WITH LUNCH DINNER, #60 TAB 08/09/16 Furosemide* (Furosemide*) 40 Mg Tablet, 40 MG PO DAILY, TAB 08/09/16 Ferrous Sulfate* (Ferrous Sulfate*) 325 Mg Tabec, 325 MG PO DAILY, TAB 08/09/16 Amiodarone Hcl* (Amiodarone Hcl*) 200 Mg Tablet, 200 MG PO DAILY, #30 TAB 08/09/16 Discontinued Reported Medications Brinzolamide (Azopt) 10 Ml Drops.susp, 10 ML BOTH EYES TID 06/10/18 Latanoprost (Latanoprost) 2.5 Ml Drops, 1 DROP BOTH EYES QHS, #1 BOTTLE 08/09/16 Medications Current Medications Amiodarone HCl (Cordarone) 200 mg DAILY PO ; Start 08/27/18 at 09:00 Atorvastatin Calcium (Lipitor) 10 mg QHS PO Last administered on 08/26/18at 21:02; Admin Dose 10 MG; Start 08/26/18 at 21:00 Brinzolamide (Azopt) 1 drop TID BOTH EYES ; Start 08/26/18 at 13:00 Docusate Sodium (Colace) 250 mg BID PO Last administered on 08/27/18 08:51; Admin Dose 250 MG; Start 08/26/18 at 21:00 Ferrous Sulfate (Ferrous Sulfate (Ec)) 325 mg DAILY PO Last administered on 08/27/18 08:51; Admin Dose 325 MG; Start 08/27/18 at 09:00 Finasteride (Proscar) 5 mg DAILY PO ; Start 08/27/18 at 09:00 Furosemide (Lasix) 40 mg DAILY PO Last administered on 08/27/18 08:51; Admin Dose 40 MG; Start 08/27/18 at 09:00 Levofloxacin (Levaquin) 500 mg DAILY PO Last administered on 08/27/18 08:51; Admin Dose 500 MG; Start 08/27/18 at 09:00 Metformin HCl (Glucophage) 500 mg WITH LUNCH DINNER PO Last administered on 08/26/18 18:27; Admin Dose 500 MG; Start 08/26/18 at 18:00 Tamsulosin HCl (Flomax) 0.4 mg DAILY PO Last administered on 08/27/18 08:51; Admin Dose 0.4 MG; Start 08/27/18 at 09:00 Travoprost (Travatan) 1 drop QHS BOTH EYES ; Start 08/26/18 at 21:00 Diagnostic Test (Pha) (Accu-Chek) 1 ea AC MEALS AND BEDTIME XX Last administered on 08/26/18at 21:03; Admin Dose 1 EA; Start 08/26/18 at 17:30 Ondansetron HCl (Zofran Inj) 4 mg Q6H PRN IV NAUSEA AND/OR VOMITING; Start 08/26/18 at 12:30 Potassium Chloride/Dextrose/ Sod Cl 1,000 ml @ 60 mls/hr [id number] IV Last admi nistered on 08/27/18at 06:09; Admin Dose 60 MLS/HR; Start 08/26/18 at 12:20 Acetaminophen (Tylenol Tab) 1,000 mg Q6H PRN PO MILD PAIN(1-3)OR ELEVATED TEMP; Start 08/26/18 at 12:30 Tramadol HCl (Ultram) 50 mg Q6H PRN NGT MODERATE PAIN LEVEL 4-6; Start 08/26/18 at 12:30 Tramadol HCl (Ultram) 100 mg Q6H PRN PO MODERATE PAIN LEVEL 7-10; Start 08/26/18 at 12:30 Hydromorphone HCl (Dilaudid) 0.5 mg Q3H PRN IV BTP Last administered on 08/27/18at 08:51; Admin Dose 0.5 MG; Start 08/26/18 at 12:30 Levothyroxine Sodium (Synthroid) 75 mcg DAILY@06 PO Last administered on 08/27/18at 06:56; Admin Dose 75 MCG; Start 08/27/18 at 06:00 Pantoprazole (Protonix Tab) 40 mg DAILY@06 PO Last administered on 08/27/18at 06:08; Admin Dose 40 MG; Start 08/27/18 at 06:00 Allergies: Coded Allergies: No Known Allergy (Unverified , 08/26/18) Past Surgical History Past Surgical Hx: other Social History Smoking Status: Former smoker Exam/Review of Systems Vital Signs Vitals Vital Signs Date Temp Pulse Resp B/P (MAP) Pulse Ox O2 O2 Flow FiO2 Time Delivery Rate 08/27/18 98.3 60 18 146/61 96 07:29 (89) 08/26/18 Room Air 15:44 08/26/18 3.0 13:34 Intake and Output 08/26/18 08/26/18 08/27/18 1515:00 23:00 07:00 IntakeIntake Total 850 ml 520 ml 1000 ml OutputOutput Total 10 ml 650 ml BalanceBalance 840 ml 520 ml 350 ml Exam Exam General: no acute distress HEENT: NC/AT. pupils are equal. round. NECK: NO JVD. no stridor. Chest: Status post sternotomy. Status post permanent pacemaker CV: RRR. systolic murmur; no gallop or rubs. PULM: no wheezing or rhonchi. GI: SOFT, mild tenderness, ND, no rebound or guarding Extremity: trace B/L LE edema. no clubbing. neuro: awake and alert, OX3. Psych: calm and pleasant rectal: deferred Most recent EKG ventricular paced rhythm Per review of the old chart most recent echocardiogram done June 08, 2018 shows: Lower limits of normal systolic function. Normal left ventricular cavity size. Normal left ventricular wall thickness. Ejection fraction is visually estimated at 50 %. Abnormal Diastolic Function. Normal right ventricular size. Normal right ventricular systolic function. Pacemaker right heart. There is mild enlargement of left atrium. There is moderate enlargement of right atrium. Mitral Valve Bio Prosthesis-no significant gradients/regurgitation. Aortic Valve Bio Prosthesis. No hemodynamically significant aortic stenosis by doppler. Mild aortic valve regurgitation. Estimated peak PA systolic pressure 50 mmHg. There is moderate tricuspid regurgitation. Normal pericardium with no significant pericardial effusion. Labs Result Diagram: 08/27/18 0446 08/27/18 0446 Results 24hrs Laboratory Tests Test 08/26/18 13:47 08/26/18 17:40 08/26/18 21:02 08/27/18 04:46 Bedside Glucose 116 90 106 White Blood Count 3.8 #L Red Blood Count 3.01 L Hemoglobin 9.2 L Hematocrit 29.5 L Mean Corpuscular 98.0 Volume Mean Corpuscular 30.6 Hemoglobin Mean Corpuscular 31.2 L Hemoglobin Concent Red Cell 14.6 H Distribution Width Platelet Count 88 L Mean Platelet Volume 11.7 H Immature 0.500 H Granulocytes % Neutrophils % 65.8 Lymphocytes % 23.2 Monocytes % 9.9 Eosinophils % 0.3 Basophils % 0.3 Nucleated Red Blood 0.0 Cells % Immature 0.020 Granulocytes # Neutrophils # 2.5 Lymphocytes # 0.9 Monocytes # 0.4 Eosinophils # 0.0 Basophils # 0.0 Nucleated Red Blood 0.0 Cells # Sodium Level 137 Potassium Level 5.5 H Chloride Level 103 Carbon Dioxide Level 24 Anion Gap 10 Blood Urea Nitrogen 15 Creatinine 1.02 Est Glomerular Filtrat Rate mL/min Glucose Level 115 Calcium Level 8.9 Phosphorus Level 3.6 Magnesium Level 1.7 Total Bilirubin 0.5 Direct Bilirubin 0.00 Indirect Bilirubin 0.5 Aspartate Amino 33 Transf (AST/SGOT) Alanine 18 Aminotransferase (AL T/SGPT) Alkaline Phosphatase 105 Total Protein 7.7 Albumin 3.7 Globulin 4.00 H Albumin/Globulin 0.92 Ratio Test 08/27/18 08:22 Bedside Glucose 109 Medications Medications Current Medications Amiodarone HCl (Cordarone) 200 mg DAILY PO ; Start 08/27/18 at 09:00 Atorvastatin Calcium (Lipitor) 10 mg QHS PO Last administered on 08/26/18 21:02; Admin Dose 10 MG; Start 08/26/18 at 21:00 Brinzolamide (Azopt) 1 drop TID BOTH EYES ; Start 08/26/18 at 13:00 Docusate Sodium (Colace) 250 mg BID PO Last administered on 08/27/18 08:51; Admin Dose 250 MG; Start 08/26/18 at 21:00 Ferrous Sulfate (Ferrous Sulfate (Ec)) 325 mg DAILY PO Last administered on 08/27/18 08:51; Admin Dose 325 MG; Start 08/27/18 at 09:00 Finasteride (Proscar) 5 mg DAILY PO ; Start 08/27/18 at 09:00 Furosemide (Lasix) 40 mg DAILY PO Last administered on 08/27/18 08:51; Admin Dose 40 MG; Start 08/27/18 at 09:00 Levofloxacin (Levaquin) 500 mg DAILY PO Last administered on 08/27/18 08:51; Admin Dose 500 MG; Start 08/27/18 at 09:00 Metformin HCl (Glucophage) 500 mg WITH LUNCH DINNER PO Last administered on 08/26/18 18:27; Admin Dose 500 MG; Start 08/26/18 at 18:00 Tamsulosin HCl (Flomax) 0.4 mg DAILY PO Last administered on 08/27/18 08:51; Admin Dose 0.4 MG; Start 08/27/18 at 09:00 Travoprost (Travatan) 1 drop QHS BOTH EYES ; Start 08/26/18 at 21:00 Diagnostic Test (Pha) (Accu-Chek) 1 ea AC MEALS AND BEDTIME XX Last administered on 3/20/19at 21:03; Admin Dose 1 EA; Start 08/26/18 at 17:30 Ondansetron HCl (Zofran Inj) 4 mg Q6H PRN IV NAUSEA AND/OR VOMITING; Start 08/26/18 at 12:30 Potassium Chloride/Dextrose/ Sod Cl 1,000 ml @ 60 mls/hr [id number] IV Last administered on 08/27/18 06:09; Admin Dose 60 MLS/HR; Start 08/26/18 at 12:20 Acetaminophen (Tylenol Tab) 1,000 mg Q6H PRN PO MILD PAIN(1-3)OR ELEVATED TEMP; Start 08/26/18 at 12:30 Tramadol HCl (Ultram) 50 mg Q6H PRN NGT MODERATE PAIN LEVEL 4-6; Start 08/26/18 at 12:30 Tramadol HCl (Ultram) 100 mg Q6H PRN PO MODERATE PAIN LEVEL 7-10; Start 08/26/18 at 12:30 Hydromorphone HCl (Dilaudid) 0.5 mg Q3H PRN IV BTP Last administered on 08/27/18at 08:51; Admin Dose 0.5 MG; Start 08/26/18 at 12:30 Levothyroxine Sodium (Synthroid) 75 mcg DAILY@06 PO Last administered on 08/27/18 06:56; Admin Dose 75 MCG; Start 08/27/18 at 06:00 Pantoprazole (Protonix Tab) 40 mg DAILY@06 PO Last administered on 08/27/18 06:08; Admin Dose 40 MG; Start 08/27/18 at 06:00 JEAN PAUL CRAIG MD Aug 27, 2018 09:15
[2018-08-27] MEDS ORDERED: NA POLYST SULFON 15 GM/60 ML BTL PO ONE (09:30)
--- NOTE | 2018-08-27 11:02 | PN ---
Date/Time of Note Date/Time of Note DATE: 08/27/18 TIME: 10:52 Assessment/Plan Lines/Catheters IV C[facility]ter Type (from [facility]): Peripheral IV Assessment/Plan Chief Complaint/Hosp Course 1.Right large indirect inguinal hernia, ventral hernia status post laparoscopic right inguinal herniorrhaphy and ventral herniorrhaphy 08/26/18 -IS -ambulate -ice pack to abdominal wall -advance diet as tolerated 2. Urinary retention: Status post straight catheterization: -Close monitoring 3.Pancytopenia: -Per medical team -Supportive -Transfusions as needed 4. Hyperkalemia: Kayexalate today -Medical management 5. Extensive cardiac history: Mitral and aortic valve replacement, CHF -Cardiac optimization per cardiology 6. Hypothyroidism: -Continue Synthroid 7. Glaucoma -Medical management Thank you. Patient seen and examined in collaboration with Dr. Chiki Stockton. Subjective 24 Hr Interval Summary Status post right inguinal hernia repair yesterday. No fevers, chills, sob, congested cough, cp, palpitations, coronel, dizziness, nausea, vomiting, diarrhea, d ysuria. Tenderness in right groin. Urinary retention noted early this morning status post straight catheterization. Exam/Review of Systems Vital Signs Vitals Vital Signs Date Temp Pulse Resp B/P (MAP) Pulse Ox O2 O2 Flow FiO2 Time Delivery Rate 08/27/18 98.3 60 18 146/61 96 07:29 (89) 08/26/18 Room Air 15:44 08/26/18 3.0 13:34 Intake and Output 08/26/18 08/26/18 08/27/18 1515:00 23:00 07:00 IntakeIntake Total 850 ml 520 ml 1000 ml OutputOutput Total 10 ml 650 ml BalanceBalance 840 ml 520 ml 350 ml Exam Constitutional: alert, oriented Psych: nl mood/affect; No anxiety Head: normocephalic, atraumatic Eyes: nl conjunctiva, EOMI, nl lids, nl sclera ENMT: nl external ears & nose, nl lips & teeth, mucosa pink and moist Neck: supple, non-tender; No jvd Respiratory: normal air movement; No congested cough, No labored breathing Cardiovascular: regular rate and rhythm; No edema Gastrointestinal: soft, tender (Karishma-incisional: Incision sites dry without drainage, minimal bruising;) Musculoskeletal: nl extremities to inspection; No joint tenderness Extremities: normal pulses Neurological: nl mental status, nl speech, nl strength Skin: No rash or lesions Results Result Diagram: 08/27/18 0446 08/27/18 0446 KRIS MARLOW NP Aug 27, 2018 11:02
[2018-08-27] MEDS: metFORMIN 500 MG TAB PO SCH (13:13)
[2018-08-27 15:03] VITALS: BP 146/67; PULSE 86; RESP 17
--- NOTE | 2018-08-27 17:25 | PN ---
DATE: 08/27/2018 SUBJECTIVE: The patient was seen. The patient unfortunately postop has urinary retention. In and o ut catheter has been done twice already. I did request urology consultation with Dr. Silveira for fur ther recommendation. The patient also is complaining of generalized body ache. He says his pain is quite unexpected for him. The patient is participating with physical therapy. May need transfer to care home facility post-surgery due to his generalized weakness and need of care. PHYSICAL EXAMINATION: VITAL SIGNS: Temperature 98.3, pulse 60, respirations 18, blood pressure 146/61, saturation 96%. GENERAL: In no acute distress. HEENT: The patient is pale. HEENT: Temporal wasting. CARDIOVASCULAR: S1, S2. LUNGS: Decreased bilaterally. ABDOMEN: Soft. He has abdominal binder. EXTREMITIES: No clubbing, cyanosis or edema. SKIN: Hyperpigmentation is noted. LABORATORY DATA: White count 3.8, hemoglobin 9.2, hematocrit 30, platelet count of 88 low, neutrophi ls 66%, lymphs 23%. Chemistry: Sodium 137, potassium 5.5, chloride 103, bicarbonate 24, BUN is 15, creatinine 1.02, glucose of 115. Pathology report from the surgery shows hernia membrane with adhere nt adipose tissue. MEDICATIONS: 1. Xalatan eyedrops as directed. 2. Amiodarone 200 mg daily. 3. Ferrous sulfate 325 daily. 4. mg daily. 5. Lasix 40 mg daily. 6. Levaquin 5 mg daily. 7. Flomax 0.4 daily. 8. Synthroid 25 mcg daily. 9. Protonix 40 mg daily. 10. Lipitor 10 mg at bedtime. 11. Colace 250 b.i.d. 12. Metformin 500 with lunch. 13. Azopt as directed. 14. Zofran p.r.n. 15. Tylenol p.r.n. 16. Ultram p.r.n. 17. Dilaudid p.r.n. ASSESSMENT AND PLAN: This is an 82-year-old male with extensive cardiac history, status pos t mitral and aortic valve replacement surgery, anemia, hypothyroidism, tendency for congestive heart failure, status post hernia repair surgery. 1. Postop day #1. Continue physical therapy, incentive spirometer and close monitoring. 2. Urinary retention. Continue Flomax. Urology will be consulted. This may be due to anesthesia p ostoperatively. 3. Gastrointestinal: Continue Protonix for gastrointestinal prophylaxis. Transfuse p.r.n. 4. Hyperkalemia. Kayexalate x1 was given. Monitor electrolytes. 5. Benign prostatic hypertrophy. Continue Flomax. 6. Hypothyroidism. Continue Synthroid. 7. Glaucoma. Continue all eyedrops. 8. History of valvular heart surgery. We will resume patient's blood thinners. May start him on Lo venox for now and transition either to Eliquis or Coumadin per surgical recommendations. 9. Thrombocytopenia. Observe. We will follow. We will follow. Pain control is being provided. Disposition: Possibly to care home facility due to generalized weakness and difficult to care for self. Dictated By: ANGELICA NICHOLS/NTS Conf#: [id number] DID#: [id number] CC: DAVID LE MD;*EndCC*
--- NOTE | 2018-08-27 19:24 | CONS ---
Assessment/Plan Assessment/Plan Hospital Course (Demo Recall) 82-year-old male underwent1 Laparoscopic right inguinal herniorrhaphy, Ventral herniorrhaphy, Local anesthetic injection and Laparoscopic guided bilateral transversus abdominis plane block on August 26, 2018. Postop he was having difficulty urinating and needed to undergo straight cath to empty his bladder. Patient states that prior to his hospital admission he was able to urinate at home. He does have a complex medical history and problems. He is known to have a history of hypertension, dyslipidemia, aortic and mitral valve replacement surgery, pacemaker placement, coronary artery disease, BPH, thrombocytopenia, fatty liver disease, aortic stenosis, cholelithiasis status post trach and PEG, status post valve surgery. The patient is already on tamsulosin and finasteride and he has been catheterized because of the retention and has some bleeding from his urethra now related to trauma from the catheterization. I did go ahead and inserted a 16 Ivor[place] Ordoñez catheter and kept it indwelling. And if the patient is going to be discharged he could be discharged with a Ordoñez catheter and we will have it removed on Friday. By then the would have less pain and will be ambulating more and would have a better chance of urinating. I also will put him on a low dose of doxazosin in addition to the tamsulosin he is on as his blood pressure is high and he could benefit his voiding as well. Consultation Date/Type/Reason Admit Date/Time Aug 26, 2018 at 17:04 Date of Consultation: Aug 27, 2018 Type of Consult Urology Reason for Consultation Postop urinary retention Requesting Provider: ANGELICA GRANDE MD Date/Time of Note DATE: 08/27/18 TIME: 19:09 Hx of Present Illness 82-year-old male underwent1 Laparoscopic right inguinal herniorrhaphy, Ventral herniorrhaphy, Local anesthetic injection and Laparoscopic guided bilateral transversus abdominis plane block on August 26, 2018. Postop he was having difficulty urinating and needed to undergo straight cath to empty his bladder. Patient states that prior to his hospital admission he was able to urinate at home. He does have a complex medical history and problems. He is known to have a history of hypertension, dyslipidemia, aortic and mitral valve replacement surgery, pacemaker placement, coronary artery disease, BPH, thrombocytopenia, fatty liver disease, aortic stenosis, cholelithiasis status post trach and PEG, status post valve surgery. Constitutional: no complaints Eyes: no complaints ENT: no complaints Respiratory: No wheezing Cardiovascular: No chest pain Gastrointestinal: pain; No nausea, No vomiting Genitourinary: other (Suprapubic pain and bleeding from the urethra after the last catheterization around 3 PM today) Musculoskeletal: no complaints Skin: no complaints Neurologic: no complaints Endocrine: no complaints Lymphatic: no complaints Psychological: no complaints Past Medical History Medical History: coronary artery disease, diabetes, high cholesterol, hypothyroid Home Meds Active Scripts Levofloxacin* (Levaquin*) 500 Mg Tablet, 500 MG PO DAILY for 7 Days, TAB Prov:ANGELICA GRANDE MD 06/11/18 Levothyroxine Sodium* (Levothyroxine Sodium*) 50 Mcg Tablet, 75 MCG PO BEFORE BREAKFAST, #30 TAB Prov:ANGELICA GRANDE MD 06/11/18 Reported Medications Docusate Sodium* (Colace*) 250 Mg Capsule, 250 MG PO BID, #60 CAP 08/26/18 Travoprost* (Travatan*) 0.004%-2.5 Ml Opht, 1 DROP BOTH EYES QHS, #1 BOTTLE 08/26/18 Metolazone* (Metolazone*) 5 Mg Tablet, 5 MG PO QPM, TAB 08/07/18 Brinzolamide (Azopt) 10 Ml Drops.susp, 1 DROP BOTH EYES TID 06/09/18 Polyethylene Glycol* (Polyethylene Glycol*) 17 Gm Powd.pack, 17 GM PO DAILY, #30 PACKET 02/28/17 Finasteride* (Finasteride*) 5 Mg Tablet, 5 MG PO DAILY, TAB 08/09/16 Warfarin Sodium* (Coumadin*) 3 Mg Tablet, 3 MG PO DAILY, TAB DEPENDS HOW HIS BLOOD TEST 08/09/16 Warfarin Sodium* (Coumadin*) 2 Mg Tablet, 2 MG PO DAILY, TAB DEPENDS HOW HIS BLOOD TEST 08/09/16 Atorvastatin Calcium (Atorvastatin Calcium) 10 Mg Tablet, 10 MG PO QHS, #30 TAB 08/09/16 Tamsulosin Hcl* (Tamsulosin Hcl*) 0.4 Mg Cap.er.24h, 0.4 MG PO DAILY, CAP 08/09/16 Metformin* (Glucophage*) 500 Mg Tab, 500 MG PO WITH LUNCH DINNER, #60 TAB 08/09/16 Furosemide* (Furosemide*) 40 Mg Tablet, 40 MG PO DAILY, TAB 08/09/16 Ferrous Sulfate* (Ferrous Sulfate*) 325 Mg Tabec, 325 MG PO DAILY, TAB 08/09/16 Amiodarone Hcl* (Amiodarone Hcl*) 200 Mg Tablet, 200 MG PO DAILY, #30 TAB 08/09/16 Discontinued Reported Medications Brinzolamide (Azopt) 10 Ml Drops.susp, 10 ML BOTH EYES TID 06/10/18 Latanoprost (Latanoprost) 2.5 Ml Drops, 1 DROP BOTH EYES QHS, #1 BOTTLE 08/09/16 Medications Current Medications Amiodarone HCl (Cordarone) 200 mg DAILY PO Last administered on 08/27/18 11 :42; Admin Dose 200 MG; Start 08/27/18 at 09:00 Atorvastatin Calcium (Lipitor) 10 mg QHS PO Last administered on 08/26/18 21:02; Admin Dose 10 MG; Start 08/26/18 at 21:00 Brinzolamide (Azopt) 1 drop TID BOTH EYES ; Start 08/26/18 at 13:00 Docusate Sodium (Colace) 250 mg BID PO Last administered on 08/27/18 08:51; Admin Dose 250 MG; Start 08/26/18 at 21:00 Ferrous Sulfate (Ferrous Sulfate (Ec)) 325 mg DAILY PO Last administered on 08/27/18 08:51; Admin Dose 325 MG; Start 08/27/18 at 09:00 Finasteride (Proscar) 5 mg DAILY PO Last administered on 08/27/18 11:42; Admin Dose 5 MG; Start 08/27/18 at 09:00 Furosemide (Lasix) 40 mg DAILY PO Last administered on 08/27/18 08:51; Admin Dose 40 MG; Start 08/27/18 at 09:00 Tamsulosin HCl (Flomax) 0.4 mg DAILY PO Last administered on 08/27/18 08:51; Admin Dose 0.4 MG; Start 08/27/18 at 09:00 Diagnostic Test (Pha) (Accu-Chek) 1 ea AC MEALS AND BEDTIME XX Last administered on 08/26/18at 21:03; Admin Dose 1 EA; Start 08/26/18 at 17:30 Ondansetron HCl (Zofran Inj) 4 mg Q6H PRN IV NAUSEA AND/OR VOMITING; Start 08/26/18 at 12:30 Acetaminophen (Tylenol Tab) 1,000 mg Q6H PRN PO MILD PAIN(1-3)OR ELEVATED TEMP; Start 08/26/18 at 12:30 Tramadol HCl (Ultram) 50 mg Q6H PRN NGT MODERATE PAIN LEVEL 4-6; Start 08/26/18 at 12:30 Tramadol HCl (Ultram) 100 mg Q6H PRN PO MODERATE PAIN LEVEL 7-10; Start 08/26/18 at 12:30 Hydromorphone HCl (Dilaudid) 0.5 mg Q3H PRN IV BTP Last administered on 08/27/18at 17:39; Admin Dose 0.5 MG; Start 08/26/18 at 12:30 Levothyroxine Sodium (Synthroid) 75 mcg DAILY@06 PO Last administered on 08/27/18at 06:56; Admin Dose 75 MCG; Start 08/27/18 at 06:00 Pantoprazole (Protonix Tab) 40 mg DAILY@06 PO Last administered on 08/27/18at 06:08; Admin Dose 40 MG; Start 08/27/18 at 06:00 Latanoprost (Xalatan) 1 drop QHS BOTH EYES ; Start 08/27/18 at 21:00 Enoxaparin Sodium (Lovenox) 40 mg BID SC ; Start 08/27/18 at 21:00 Allergies: Coded Allergies: No Known Allergy (Unverified , 08/26/18) Past Surgical History Past Surgical Hx: other (aortic and mitral valve replacement surgery, pacemaker placement,TURP, inguinal hernia repair, tracheostomy and G-tube placement in the past) Social History Alcohol Use: none Smoking Status: Former smoker Exam/Review of Systems Exam Vitals Vital Signs Date Temp Pulse Resp B/P (MAP) Pulse Ox O2 O2 Flow FiO2 Time Delivery Rate 08/27/18 98.6 86 17 146/67 95 15:03 (93) 08/26/18 Room Air 15:44 08/26/18 3.0 13:34 Intake and Output 08/26/18 08/26/18 08/27/18 1515:00 23:00 07:00 IntakeIntake Total 850 ml 520 ml 1000 ml OutputOutput Total 10 ml 650 ml BalanceBalance 840 ml 520 ml 350 ml Constitutional: alert, oriented Psych: no complaints Head: normocephalic Eyes: nl conjunctiva ENMT: other (Scar from the tracheostomy) Neck: supple, other Respiratory: normal air movement; No wheezing Cardiovascular: No jugular venous distention (JVD) Gastrointestinal: soft, other (Status post laparoscopic hernia repair) Extremities: other (Varicose veins of lower extremities); No calf tenderness Neurological: nl mental status Skin: nl turgor Results Result Diagram: 08/27/18 0446 08/27/18 0446 Results 24hrs Laboratory Tests Test 08/26/18 21:02 08/27/18 04:46 08/27/18 08:22 08/27/18 13:11 Bedside Glucose 106 109 112 White Blood Count 3.8 #L Red Blood Count 3.01 L Hemoglobin 9.2 L Hematocrit 29.5 L Mean Corpuscular 98.0 Volume Mean Corpuscular 30.6 Hemoglobin Mean Corpuscular 31.2 L Hemoglobin Concent Red Cell 14.6 H Distribution Width Platelet Count 88 L Mean Platelet Volume 11.7 H Immature 0.500 H Granulocytes % Neutrophils % 65.8 Lymphocytes % 23.2 Monocytes % 9.9 Eosinophils % 0.3 Basophils % 0.3 Nucleated Red Blood 0.0 Cells % Immature 0.020 Granulocytes # Neutrophils # 2.5 Lymphocytes # 0.9 Monocytes # 0.4 Eosinophils # 0.0 Basophils # 0.0 Nucleated Red Blood 0.0 Cells # Sodium Level 137 Potassium Level 5.5 H Chloride Level 103 Carbon Dioxide Level 24 Anion Gap 10 Blood Urea Nitrogen 15 Creatinine 1.02 Est Glomerular Filtrat Rate mL/min Glucose Level 115 Calcium Level 8.9 Phosphorus Level 3.6 Magnesium Level 1.7 Total Bilirubin 0.5 Direct Bilirubin 0.00 Indirect Bilirubin 0.5 Aspartate Amino 33 Transf (AST/SGOT) Alanine 18 Aminotransferase (AL T/SGPT) Alkaline Phosphatase 105 Total Protein 7.7 Albumin 3.7 Globulin 4.00 H Albumin/Globulin 0.92 Ratio Test 08/27/18 17:41 Bedside Glucose 112 Medications Medication Current Medications Amiodarone HCl (Cordarone) 200 mg DAILY PO Last administered on 08/27/18at 11:42; Admin Dose 200 MG; Start 08/27/18 at 09:00 Atorvastatin Calcium (Lipitor) 10 mg QHS PO Last administered on 08/26/18 21:02; Admin Dose 10 MG; Start 08/26/18 at 21:00 Brinzolamide (Azopt) 1 drop TID BOTH EYES ; Start 08/26/18 at 13:00 Docusate Sodium (Colace) 250 mg BID PO Last administered on 08/27/18 08:51; Admin Dose 250 MG; Start 08/26/18 at 21:00 Ferrous Sulfate (Ferrous Sulfate (Ec)) 325 mg DAILY PO Last administered on 08/27/18 08:51; Admin Dose 325 MG; Start 08/27/18 at 09:00 Finasteride (Proscar) 5 mg DAILY PO Last administered on 08/27/18 11:42; Admin Dose 5 MG; Start 08/27/18 at 09:00 Furosemide (Lasix) 40 mg DAILY PO Last administered on 08/27/18 08:51; Admin Dose 40 MG; Start 08/27/18 at 09:00 Tamsulosin HCl (Flomax) 0.4 mg DAILY PO Last administered on 08/27/18 08:51; Admin Dose 0.4 MG; Start 08/27/18 at 09:00 Diagnostic Test (Pha) (Accu-Chek) 1 ea AC MEALS AND BEDTIME XX Last administered on 08/26/18 21:03; Admin Dose 1 EA; Start 08/26/18 at 17:30 Ondansetron HCl (Zofran Inj) 4 mg Q6H PRN IV NAUSEA AND/OR VOMITING; Start 08/26/18 at 12:30 Acetaminophen (Tylenol Tab) 1,000 mg Q6H PRN PO MILD PAIN(1-3)OR ELEVATED TEMP; Start 08/26/18 at 12:30 Tramadol HCl (Ultram) 50 mg Q6H PRN NGT MODERATE PAIN LEVEL 4-6; Start 08/26/18 at 12:30 Tramadol HCl (Ultram) 100 mg Q6H PRN PO MODERATE PAIN LEVEL 7-10; Start 08/26/18 at 12:30 Hydromorphone HCl (Dilaudid) 0.5 mg Q3H PRN IV BTP Last administered on 08/27/18at 17:39; Admin Dose 0.5 MG; Start 08/26/18 at 12:30 Levothyroxine Sodium (Synthroid) 75 mcg DAILY@06 PO Last administered on at 06:56; Admin Dose 75 MCG; Start 08/27/18 at 06:00 Pantoprazole (Protonix Tab) 40 mg DAILY@06 PO Last administered on 08/27/18at 06:08; Admin Dose 40 MG; Start 08/27/18 at 06:00 Latanoprost (Xalatan) 1 drop QHS BOTH EYES ; Start 08/27/18 at 21:00 Enoxaparin Sodium (Lovenox) 40 mg BID SC ; Start 08/27/18 at 21:00 PAMELA OLEA MD Aug 27, 2018 19:19
[2018-08-27 20:00] VITALS: BP 141/67; PULSE 84; RESP 18
[2018-08-27] MEDS: ATORVASTATIN 10 MG TAB PO SCH (20:39)
[2018-08-27] MEDS: DOXAZOSIN 2 MG TAB PO SCH (20:40)
[2018-08-27] MEDS: ENOXAPARIN 40 MG/0.4 ML SYG SC SCH (20:59)
[2018-08-27] MEDS: LATANOPROST 0.005% 2.5 ML OPH BOTH EYES SCH (21:00)
[2018-08-28] MEDS: ACCU-CHEK XX SCH ×3 (00:05→12:52)
[2018-08-28 01:25] VITALS: BP 132/60; PULSE 79; RESP 17
[2018-08-28] MEDS: PANTOPRAZOLE (EC) 40 MG TAB PO SCH (05:51)
[2018-08-28] MEDS: LEVOTHYROXINE 75 MCG TAB PO SCH (05:51)
[2018-08-28 07:37] VITALS: BP 149/65; PULSE 68; RESP 18
[2018-08-28] MEDS: FERROUS SULFATE (EC) 325 MG TAB PO SCH (08:32)
[2018-08-28] MEDS: DOCUSATE SODIUM 250 MG CAP PO SCH ×2 (08:32→21:15)
[2018-08-28] MEDS: TAMSULOSIN (SR) 0.4 MG CAP PO SCH (08:33)
[2018-08-28] MEDS: FINASTERIDE 5 MG TAB PO SCH (08:33)
[2018-08-28] MEDS: AMIODARONE 200 MG TAB PO SCH (08:33)
[2018-08-28] MEDS: FUROSEMIDE 40 MG TAB PO SCH (08:33)
[2018-08-28] MEDS: ENOXAPARIN 40 MG/0.4 ML SYG SC SCH (08:35)
[2018-08-28] MEDS: BRINZOLAMIDE 1% 10ML OPH BOTH EYES SCH ×3 (09:00→21:16)
--- NOTE | 2018-08-28 12:59 | PN ---
Date/Time of Note Date/Time of Note DATE: 08/28/18 TIME: 12:55 Assessment/Plan Lines/Catheters IV Catheter Type (from [facility]): Peripheral IV Souza in Place (from [facility]): Yes Assessment/Plan Chief Complaint/Hosp Course 1.Right large indirect inguinal hernia, ventral hernia status post laparoscopic right inguinal herniorrhaphy and ventral herniorrhaphy 08/26/18 -IS -ambulate -ice pack to abdominal wall -advance diet as tolerated 2. Urinary retention: Status post straight catheterization x2; now w indwelling cath -per urology -Close monitoring 3.Pancytopenia: -Per medical team -Supportive -Transfusions as needed 4. Hyperkalemia: Kayexalate today -Medical management 5. Extensive cardiac history: Mitral and aortic valve replacement, CHF -Cardiac optimization per cardiology 6. Hypothyroidism: -Continue Synthroid 7. Glaucoma -Medical management Thank you. Patient seen and examined in collaboration with Dr. Chiki Stockton. Subjective 24 Hr Interval Summary Had another episode of urinary retention s/p repeat straight cath. No fevers, chills, sob, congested cough, cp, palpitations, coronel, dizziness, n/v/d/dysuria. Exam/Review of Systems Vital Signs Vitals Vital Signs Date Temp Pulse Resp B/P (MAP) Pulse Ox O2 O2 Flow FiO2 Time Delivery Rate 08/28/18 97.8 71 18 138/62 95 14:35 (87) 08/26/18 Room Air 15:44 08/26/18 3.0 13:34 Intake and Output 08/27/18 08/27/18 08/28/18 1515:00 23:00 07:00 IntakeIntake Total 1140 ml OutputOutput Total 500 ml 150 ml 900 ml BalanceBalance 640 ml -150 ml -900 ml Exam Free Text/Dictation Constitutional: alert, oriented Psych: nl mood/affect; No anxiety Head: normocephalic, atraumatic Eyes: nl conjunctiva, EOMI, nl lids, nl sclera ENMT: nl external ears & nose, nl lips & teeth, mucosa pink and moist Neck: supple, non-tender; No jvd Respiratory: normal air movement; No congested cough, No labored breathing Cardiovascular: regular rate and rhythm; No edema Gastrointestinal: soft, tender (Karishma-incisional: Incision sites dry without drainage, minimal bruising;) : indwelling souza Musculoskeletal: nl extremities to inspection; No joint tenderness Extremities: normal pulses Neurological: nl mental status, nl speech, nl strength Skin: No rash or lesions Results Result Diagram: 08/28/18 0451 08/28/18 0451 KRIS MARLOW NP Aug 28, 2018 12:59
[2018-08-28] MEDS ORDERED: DOCUSATE SODIUM 100 MG CAP PO SCH (14:30)
[2018-08-28] MEDS ORDERED: LACTULOSE 30ML CUP PO PRN (14:30)
[2018-08-28] MEDS ORDERED: BISACODYL (EC) 5 MG TAB PO ONE (14:30)
[2018-08-28 14:35] VITALS: BP 138/62; PULSE 71; RESP 18
--- NOTE | 2018-08-28 15:01 | PN ---
DATE: 08/28/2018 SUBJECTIVE: The patient was seen. The patient unfortunately has urinary retention. Ordoñez was place d and to be kept for a few days. The patient also is weak. Physical therapy is to see the patient. PHYSICAL EXAMINATION: VITAL SIGNS: Temperature 97.6, pulse 68, respiration 18, blood pressure 149/65, saturation 95%. GENERAL: The patient is in no acute distress. HEENT: The patient is frail, pale. Temporal wasting. CARDIOVASCULAR: S1, S2. LUNGS: Clear. ABDOMEN: Soft. Abdominal binder in place. EXTREMITIES: No clubbing, cyanosis or edema. LABORATORY DATA: White count is 4, hemoglobin 9.2, hematocrit 29, platelet count of 84 low, neutroph ils 60%, lymphs 28%. Chemistry: Sodium 137, potassium 4.8, chloride 100, bicarbonate 27, BUN 13, cr eatinine 1.08 and glucose 117. CURRENT MEDICATIONS: Include: 1. Xalatan eyedrops. 2. Lovenox 40 mg subcutaneous b.i.d. 3. Cardura 2 mg at bedtime. 4. Amiodarone 200 daily. 5. Ferrous sulfate 325 daily. 6. Proscar 5 mg daily. 7. Lasix 20 mg daily. 8. Flomax 0.4 daily. 9. Synthroid 25 mcg daily. 10. Protonix 40 mg daily. 11. Lipitor 10 mg at bedtime. 12. Colace 250 b.i.d. 13. Azopt t.i.d. 14. Zofran p.r.n. 15. Tylenol p.r.n. 16. Ultram p.r.n. 17. Dilaudid p.r.n. ASSESSMENT AND PLAN: This is an 82-year-old male with extensive cardiac history, status pos t mitral and aortic valve replacement surgery, anemia, hypothyroidism, tendency for congestive heart failure, status post hernia repair surgery postop day #2. 1. Postop day #2. Continue physical therapy, incentive spirometer and close monitoring. 2. Urinary retention. Continue Flomax. Ordoñez is now in place. This may be due to anesthesia. The patient is to be keep the Ordoñez in until Friday. Attempt to remove it Friday, either here or at [facility] with home health. 3. Gastrointestinal: Continue Protonix for gastrointestinal prophylaxis. H and H is stable. 4. History of valve surgery. We will resume blood thinners. Switch to Eliquis per Dr. Kellogg. 5. Benign prostatic hypertrophy. Continue Flomax. 6. Hypothyroidism. Continue Synthroid. 7. Glaucoma, on eyedrops. 8. Constipation. Stool softeners will be provided. 9. Mild malnutrition. Add Ensure. 10. Thrombocytopenia. Observe if worse, may have to hold blood thinners. 11. Tendency to mild diabetes with glucose level. Metformin to be prescribed upon discharge. Clinically stable. Case was discussed with family at bedside regarding plan of care. Progress with physical therapy. We will follow. Disposition: Likely soon with home health. Dictated By: ANGELICA NICHOLS/NTS Conf#: [id number] DID#: [id number] CC: DAVID LE MD;*[facility]*
--- NOTE | 2018-08-28 15:46 | CONS ---
Consult Date/Type/Reason Admit Date/Time Aug 27, 2018 at 14:58 Initial Consult Date 08/27/18 Type of Consultation: cv Requesting Provider: ANGELICA GRANDE MD Date/Time of Note DATE: 08/28/18 TIME: 15:39 Subjective Interventional cardiology follow-up progress Subjective: Case discussed with the staff. Discussed with the patient son girlfriend at the bedside. Patient with no chest pain or pressure no palpitation has been no abdominal discomfort. No bleeding is reported. Patient is on Eliquis now Objective: General: no acute distress HEENT: NC/AT. pupils are equal. round. NECK: NO JVD. no stridor. Chest: Status post sternotomy. Status post permanent pacemaker CV: RRR. systolic murmur; no gallop or rubs. PULM: no wheezing or rhonchi. GI: SOFT, mild tenderness, ND, no rebound or guarding Extremity: trace B/L LE edema. no clubbing. neuro: awake and alert, OX3. Psych: calm and pleasant rectal: deferred Most recent EKG ventricular paced rhythm Per review of the old chart most recent echocardiogram done June 08, 2018 shows: Lower limits of normal systolic function. Normal left ventricular cavity size. Normal left ventricular wall thickness. Ejection fraction is visually estimated at 50 %. Abnormal Diastolic Function. Normal right ventricular size. Normal right ventricular systolic function. Pacemaker right heart. There is mild enlargement of left atrium. There is moderate enlargement of right atrium. Mitral Valve Bio Prosthesis-no significant gradients/regurgitation. Aortic Valve Bio Prosthesis. No hemodynamically significant aortic stenosis by doppler. Mild aortic valve regurgitation. Estimated peak PA systolic pressure 50 mmHg. There is moderate tricuspid regurgitation. Normal pericardium with no significant pericardial effusion. Objective Vitals Vital Signs Date Temp Pulse Resp B/P (MAP) Pulse Ox O2 O2 Flow FiO2 Time Delivery Rate 08/28/18 97.8 71 18 138/62 95 14:35 (87) 08/26/18 Room Air 15:44 08/26/18 3.0 13:34 Intake and Output 08/27/18 08/27/18 08/28/18 1515:00 23:00 07:00 IntakeIntake Total 1140 ml OutputOutput Total 500 ml 150 ml 900 ml BalanceBalance 640 ml -150 ml -900 ml Results/Medications Result Diagram: 08/28/18 0451 08/28/18 0451 Results 24 hrs Laboratory Tests Test 08/27/18 17:41 08/28/18 00:04 08/28/18 04:51 08/28/18 08:20 Bedside Glucose 112 106 116 White Blood Count 4.0 L Red Blood Count 3.01 L Hemoglobin 9.2 L Hematocrit 28.9 L Mean Corpuscular 96.0 Volume Mean Corpuscular 30.6 Hemoglobin Mean Corpuscular 31.8 L Hemoglobin Concent Red Cell 14.5 Distribution Width Platelet Count 84 L Mean Platelet Volume 10.9 H Immature 0.500 H Granulocytes % Neutrophils % 60.4 Lymphocytes % 28.4 Monocytes % 10.1 Eosinophils % 0.3 Basophils % 0.3 Nucleated Red Blood 0.0 Cells % Immature 0.020 Granulocytes # Neutrophils # 2.4 Lymphocytes # 1.1 Monocytes # 0.4 Eosinophils # 0.0 Basophils # 0.0 Nucleated Red Blood 0.0 Cells # Sodium Level 137 Potassium Level 4.8 Chloride Level 100 Carbon Dioxide Level 27 Anion Gap 10 Blood Urea Nitrogen 13 Creatinine 1.08 Est Glomerular Filtrat Rate mL/min Glucose Level 117 Calcium Level 8.7 Phosphorus Level 3.7 Magnesium Level 1.7 Test 08/28/18 12:51 Bedside Glucose 97 Home Meds Active Scripts Levofloxacin* (Levaquin*) 500 Mg Tablet, 500 MG PO DAILY for 7 Days, TAB Prov:ANGELICA GRANDE MD 06/11/18 Levothyroxine Sodium* (Levothyroxine Sodium*) 50 Mcg Tablet, 75 MCG PO BEFORE BREAKFAST, #30 TAB Prov:ANGELICA GRANDE MD 06/11/18 Reported Medications Docusate Sodium* (Colace*) 250 Mg Capsule, 250 MG PO BID, #60 CAP 08/26/18 Travoprost* (Travatan*) 0.004%-2.5 Ml Opht, 1 DROP BOTH EYES QHS, #1 BOTTLE 08/26/18 Metolazone* (Metolazone*) 5 Mg Tablet, 5 MG PO QPM, TAB 08/07/18 Brinzolamide (Azopt) 10 Ml Drops.susp, 1 DROP BOTH EYES TID 06/09/18 Polyethylene Glycol* (Polyethylene Glycol*) 17 Gm Powd.pack, 17 GM PO DAILY, #30 PACKET 02/28/17 Finasteride* (Finasteride*) 5 Mg Tablet, 5 MG PO DAILY, TAB 08/09/16 Warfarin Sodium* (Coumadin*) 3 Mg Tablet, 3 MG PO DAILY, TAB DEPENDS HOW HIS BLOOD TEST 08/09/16 Warfarin Sodium* (Coumadin*) 2 Mg Tablet, 2 MG PO DAILY, TAB DEPENDS HOW HIS BLOOD TEST 08/09/16 Atorvastatin Calcium (Atorvastatin Calcium) 10 Mg Tablet, 10 MG PO QHS, #30 TAB 08/09/16 Tamsulosin Hcl* (Tamsulosin Hcl*) 0.4 Mg Cap.er.24h, 0.4 MG PO DAILY, CAP 08/09/16 Metformin* (Glucophage*) 500 Mg Tab, 500 MG PO WITH LUNCH DINNER, #60 TAB 08/09/16 Furosemide* (Furosemide*) 40 Mg Tablet, 40 MG PO DAILY, TAB 08/09/16 Ferrous Sulfate* (Ferrous Sulfate*) 325 Mg Tabec, 325 MG PO DAILY, TAB 08/09/16 Amiodarone Hcl* (Amiodarone Hcl*) 200 Mg Tablet, 200 MG PO DAILY, #30 TAB 08/09/16 Discontinued Reported Medications Brinzolamide (Azopt) 10 Ml Drops.susp, 10 ML BOTH EYES TID 06/10/18 Latanoprost (Latanoprost) 2.5 Ml Drops, 1 DROP BOTH EYES QHS, #1 BOTTLE 08/09/16 Medications Current Medications Amiodarone HCl (Cordarone) 200 mg DAILY PO Last administered on 08/28/18at 08:3 3; Admin Dose 200 MG; Start 08/27/18 at 09:00 Atorvastatin Calcium (Lipitor) 10 mg QHS PO Last administered on 08/27/18at 20:39; Admin Dose 10 MG; Start 08/26/18 at 21:00 Brinzolamide (Azopt) 1 drop TID BOTH EYES Last administered on 08/28/18at 13:54; Admin Dose 1 DROP; Start 08/26/18 at 13:00 Docusate Sodium (Colace) 250 mg BID PO Last administered on 08/28/18at 08:32; Admin Dose 250 MG; Start 08/26/18 at 21:00 Ferrous Sulfate (Ferrous Sulfate (Ec)) 325 mg DAILY PO Last administered on 08/28/18at 08:32; Admin Dose 325 MG; Start 08/27/18 at 09:00 Finasteride (Proscar) 5 mg DAILY PO Last administered on 08/28/18 08:33; Admin Dose 5 MG; Start 08/27/18 at 09:00 Furosemide (Lasix) 40 mg DAILY PO Last administered on 08/28/18 08:33; Admin Dose 40 MG; Start 08/27/18 at 09:00 Tamsulosin HCl (Flomax) 0.4 mg DAILY PO Last administered on 08/28/18 08:33; Admin Dose 0.4 MG; Start 08/27/18 at 09:00 Ondansetron HCl (Zofran Inj) 4 mg Q6H PRN IV NAUSEA AND/OR VOMITING Last administered on 08/28/18 00:08; Admin Dose 4 MG; Start 08/26/18 at 12:30 Acetaminophen (Tylenol Tab) 1,000 mg Q6H PRN PO MILD PAIN(1-3)OR ELEVATED TEMP; Start 08/26/18 at 12:30 Tramadol HCl (Ultram) 50 mg Q6H PRN NGT MODERATE PAIN LEVEL 4-6; Start 08/26/18 at 12:30 Tramadol HCl (Ultram) 100 mg Q6H PRN PO MODERATE PAIN LEVEL 7-10 Last administered on 08/27/18at 20:41; Admin Dose 100 MG; Start 08/26/18 at 12:30 Hydromorphone HCl (Dilaudid) 0.5 mg Q3H PRN IV BTP Last administered on 08/27/18at 17:39; Admin Dose 0.5 MG; Start 08/26/18 at 12:30 Levothyroxine Sodium (Synthroid) 75 mcg DAILY@06 PO Last administered on 08/28/18 05:51; Admin Dose 75 MCG; Start 08/27/18 at 06:00 Pantoprazole (Protonix Tab) 40 mg DAILY@06 PO Last administered on 08/28/18at 05:51; Admin Dose 40 MG; Start 08/27/18 at 06:00 Latanoprost (Xalatan) 1 drop QHS BOTH EYES ; Start 08/27/18 at 21:00 Doxazosin Mesylate (Cardura) 2 mg HS PO Last administered on 08/27/18at 20:40; Admin Dose 2 MG; Start 08/27/18 at 21:00 Apixaban (Eliquis) 5 mg BID PO ; Start 08/29/18 at 07:00 Lactulose (Enulose) 20 gm BID PRN PO CONSTIPATION; Start 08/28/18 at 14:30 Assessment/Plan Hospital Course (Demo Recall) 1. Valvular heart disease with history of aortic and mitral valve replacement 2. atrial fibrillation 3. Status post hernia repair 4. Diabetes 5. Hypertension 6. Dyslipidemia 7. BPH Recommendation: We will continue with the current cardiac care. Patient heart is under good control. cont eliquis since pt does not have Mechanical valve ( AFIB is his indication for anticoagulation) Postop care as per surgery to be continued. Diabetic management as per internal medicine Outpatient cardiology follow-up with the heart group who have been following him for a long time. Thank you for his referral. We will continue to follow along with you until Dr. Perez takes over the case tomorrow JEAN PAUL CRAIG MD [facility] JEAN PAUL CRIAG MD Aug 28, 2018 15:46
[2018-08-28 20:25] VITALS: BP 121/56; PULSE 84; RESP 16
[2018-08-28] MEDS: ATORVASTATIN 10 MG TAB PO SCH (21:15)
[2018-08-28] MEDS: DOXAZOSIN 2 MG TAB PO SCH (21:15)
[2018-08-28] MEDS: LATANOPROST 0.005% 2.5 ML OPH BOTH EYES SCH (21:39)
[2018-08-29 02:15] VITALS: BP 128/72; PULSE 80; RESP 18
[2018-08-29] MEDS: LEVOTHYROXINE 75 MCG TAB PO SCH (05:33)
[2018-08-29] MEDS: PANTOPRAZOLE (EC) 40 MG TAB PO SCH (05:33)
[2018-08-29 08:02] VITALS: BP 108/55; PULSE 77; RESP 18
[2018-08-29] MEDS: APIXABAN 5 MG TABLET PO SCH ×2 (08:52→20:48)
[2018-08-29] MEDS: FERROUS SULFATE (EC) 325 MG TAB PO SCH (08:52)
[2018-08-29] MEDS: DOCUSATE SODIUM 250 MG CAP PO SCH ×2 (08:52→20:48)
[2018-08-29] MEDS: FUROSEMIDE 40 MG TAB PO SCH (08:53)
[2018-08-29] MEDS: FINASTERIDE 5 MG TAB PO SCH (08:53)
[2018-08-29] MEDS: BRINZOLAMIDE 1% 10ML OPH BOTH EYES SCH ×3 (08:53→20:49)
[2018-08-29] MEDS: TAMSULOSIN (SR) 0.4 MG CAP PO SCH (08:53)
[2018-08-29] MEDS: AMIODARONE 200 MG TAB PO SCH (08:54)
--- NOTE | 2018-08-29 11:07 | CONS ---
Assessment/Plan Assessment/Plan Assessment/Plan (Daily) Assessment: 1. Valvular heart disease with history of aortic and mitral valve replacement 2. atrial fibrillation 3. Status post hernia repair 4. Diabetes 5. Hypertension 6. Dyslipidemia 7. BPH Plan: continue eliquis no change in cardiac regimen Consultation Date/Type/Reason Admit Date/Time Aug 27, 2018 at 14:58 Initial Consult Date 08/27/18 Type of Consult Cardiology Requesting Provider: ANGELICA GRANDE MD Date/Time of Note DATE: 08/29/18 TIME: 11:05 24 HR Interval Summary Free Text/Dictation no chest pain, no sob Detailed Summary Respiratory: no complaints Cardiovascular: no complaints Gastrointestinal: no complaints Musculoskeletal: no complaints Skin: no complaints Neurologic: no complaints Exam/Review of Systems Vital Signs Vitals Vital Signs Date Temp Pulse Resp B/P (MAP) Pulse Ox O2 O2 Flow FiO2 Time Delivery Rate 08/29/18 97.7 77 18 108/55 92 Room Air 08:02 (72) 08/26/18 3.0 13:34 Intake and Output 08/28/18 08/28/18 08/29/18 1515:00 23:00 07:00 IntakeIntake Total 200 ml OutputOutput Total 500 ml 800 ml BalanceBalance -500 ml -600 ml Exam Constitutional: alert, oriented Head: normocephalic, atraumatic Neck: supple Respiratory: clear to auscultation Cardiovascular: irregular rhythm Gastrointestinal: soft Musculoskeletal: nl extremities to inspection Labs Result Diagram: 08/29/18 0610 08/29/18 0610 Results 24hrs Laboratory Tests Test 08/28/18 12:51 08/29/18 06:10 Bedside Glucose 97 White Blood Count 3.1 #L Red Blood Count 2.81 L Hemoglobin 8.4 L Hematocrit 26.6 L Mean Corpuscular Volume 94.7 Mean Corpuscular Hemoglobin 29.9 Mean Corpuscular Hemoglobin Concent 31.6 L Red Cell Distribution Width 14.2 Platelet Count 78 L Mean Platelet Volume 10.2 Immature Granulocytes % 0.300 Neutrophils % 55.7 Lymphocytes % 29.2 Monocytes % 12.2 H Eosinophils % 2.6 Basophils % 0.0 Nucleated Red Blood Cells % 0.0 Immature Granulocytes # 0.010 Neutrophils # 1.7 Lymphocytes # 0.9 Monocytes # 0.4 Eosinophils # 0.1 Basophils # 0.0 Nucleated Red Blood Cells # 0.0 Sodium Level 136 Potassium Level 3.4 L Chloride Level 99 Carbon Dioxide Level 29 Anion Gap 8 Blood Urea Nitrogen 16 Creatinine 1.09 Est Glomerular Filtrat Rate mL/min Glucose Level 103 Calcium Level 8.5 Phosphorus Level 3.4 Magnesium Level 1.5 L Total Bilirubin 0.6 Direct Bilirubin 0.00 Indirect Bilirubin 0.6 Aspartate Amino Transf (AST/SGOT) 27 Alanine Aminotransferase (ALT/SGPT) 15 Alkaline Phosphatase 103 Total Protein 7.1 Albumin 3.3 Globulin 3.80 H Albumin/Globulin Ratio 0.86 Medications Medications Current Medications Amiodarone HCl (Cordarone) 200 mg DAILY PO Last administered on 08/29/18 08:54; Admin Dose 200 MG; Start 08/27/18 at 09:00 Atorvastatin Calcium (Lipitor) 10 mg QHS PO Last administered on 08/28/18 21:15; Admin Dose 10 MG; Start 08/26/18 at 21:00 Brinzolamide (Azopt) 1 drop TID BOTH EYES Last administered on 08/29/18 08:53; Admin Dose 1 DROP; Start 08/26/18 at 13:00 Docusate Sodium (Colace) 250 mg BID PO Last administered on 08/29/18 08:52; Admin Dose 250 MG; Start 08/26/18 at 21:00 Ferrous Sulfate (Ferrous Sulfate (Ec)) 325 mg DAILY PO Last administered on 08/29/18 08:52; Admin Dose 325 MG; Start 08/27/18 at 09:00 Finasteride (Proscar) 5 mg DAILY PO Last administered on 08/29/18 08:53; Admin Dose 5 MG; Start 08/27/18 at 09:00 Furosemide (Lasix) 40 mg DAILY PO Last administered on 08/29/18 08:53; Admin Dose 40 MG; Start 08/27/18 at 09:00 Tamsulosin HCl (Flomax) 0.4 mg DAILY PO Last administered on 08/29/18 08:53; Admin Dose 0.4 MG; Start 08/27/18 at 09:00 Ondansetron HCl (Zofran Inj) 4 mg Q6H PRN IV NAUSEA AND/OR VOMITING Last admin istered on 08/28/18 00:08; Admin Dose 4 MG; Start 08/26/18 at 12:30 Acetaminophen (Tylenol Tab) 1,000 mg Q6H PRN PO MILD PAIN(1-3)OR ELEVATED TEMP; Start 08/26/18 at 12:30 Tramadol HCl (Ultram) 50 mg Q6H PRN NGT MODERATE PAIN LEVEL 4-6; Start 08/26/18 at 12:30 Tramadol HCl (Ultram) 100 mg Q6H PRN PO MODERATE PAIN LEVEL 7-10 Last administered on 08/27/18at 20:41; Admin Dose 100 MG; Start 08/26/18 at 12:30 Hydromorphone HCl (Dilaudid) 0.5 mg Q3H PRN IV BTP Last administered on 08/27/18 17:39; Admin Dose 0.5 MG; Start 08/26/18 at 12:30 Levothyroxine Sodium (Synthroid) 75 mcg DAILY@06 PO Last administered on 08/29/18 05:33; Admin Dose 75 MCG; Start 08/27/18 at 06:00 Pantoprazole (Protonix Tab) 40 mg DAILY@06 PO Last administered on 08/29/18 05:33; Admin Dose 40 MG; Start 08/27/18 at 06:00 Latanoprost (Xalatan) 1 drop QHS BOTH EYES Last administered on 08/28/18 21:39; Admin Dose 1 DROP; Start 08/27/18 at 21:00 Doxazosin Mesylate (Cardura) 2 mg HS PO Last administered on 08/28/18 21:15; Admin Dose 2 MG; Start 08/27/18 at 21:00 Apixaban (Eliquis) 5 mg BID PO Last administered on 08/29/18at 08:52; Admin Dose 5 MG; Start 08/29/18 at 07:00 Lactulose (Enulose) 20 gm BID PRN PO CONSTIPATION; Start 08/28/18 at 14:30 ELISA VARGAS MD Aug 29, 2018 11:06
[2018-08-29] MEDS ORDERED: POTASSIUM CHLORIDE (SR) 20 MEQ TAB PO STA (13:37)
--- NOTE | 2018-08-29 13:39 | CONS ---
Consult Date/Type/Reason Admit Date/Time Aug 27, 2018 at 14:58 Initial Consult Date 08/27/18 Type of Consultation: Urology Reason for Consultation Urinary retention Requesting Provider: ANGELICA GRANDE MD Date/Time of Note DATE: 08/29/18 TIME: 13:35 Subjective Patient is comfortable at the present and his Ordoñez catheter is draining clear urine Objective Vitals Vital Signs Date Temp Pulse Resp B/P (MAP) Pulse Ox O2 O2 Flow FiO2 Time Delivery Rate 08/29/18 97.7 77 18 108/55 92 Room Air 08:02 (72) 08/26/18 3.0 13:34 Intake and Output 08/28/18 08/28/18 08/29/18 1515:00 23:00 07:00 IntakeIntake Total 200 ml OutputOutput Total 500 ml 800 ml BalanceBalance -500 ml -600 ml Exam Ordoñez catheter draining clear urine Results/Medications Result Diagram: 08/29/18 0610 08/29/18 0610 Results 24 hrs Laboratory Tests Test 08/29/18 06:10 White Blood Count 3.1 #L Red Blood Count 2.81 L Hemoglobin 8.4 L Hematocrit 26.6 L Mean Corpuscular Volume 94.7 Mean Corpuscular Hemoglobin 29.9 Mean Corpuscular Hemoglobin Concent 31.6 L Red Cell Distribution Width 14.2 Platelet Count 78 L Mean Platelet Volume 10.2 Immature Granulocytes % 0.300 Neutrophils % 55.7 Lymphocytes % 29.2 Monocytes % 12.2 H Eosinophils % 2.6 Basophils % 0.0 Nucleated Red Blood Cells % 0.0 Immature Granulocytes # 0.010 Neutrophils # 1.7 Lymphocytes # 0.9 Monocytes # 0.4 Eosinophils # 0.1 Basophils # 0.0 Nucleated Red Blood Cells # 0.0 Sodium Level 136 Potassium Level 3.4 L Chloride Level 99 Carbon Dioxide Level 29 Anion Gap 8 Blood Urea Nitrogen 16 Creatinine 1.09 Est Glomerular Filtrat Rate mL/min Glucose Level 103 Calcium Level 8.5 Phosphorus Level 3.4 Magnesium Level 1.5 L Total Bilirubin 0.6 Direct Bilirubin 0.00 Indirect Bilirubin 0.6 Aspartate Amino Transf (AST/SGOT) 27 Alanine Aminotransferase (ALT/SGPT) 15 Alkaline Phosphatase 103 Total Protein 7.1 Albumin 3.3 Globulin 3.80 H Albumin/Globulin Ratio 0.86 Home Meds Active Scripts Levofloxacin* (Levaquin*) 500 Mg Tablet, 500 MG PO DAILY for 7 Days, TAB Prov:ANGELICA GRANDE MD 06/11/18 Levothyroxine Sodium* (Levothyroxine Sodium*) 50 Mcg Tablet, 75 MCG PO BEFORE BREAKFAST, #30 TAB Prov:ANGELICA GRANDE MD 06/11/18 Reported Medications Docusate Sodium* (Colace*) 250 Mg Capsule, 250 MG PO BID, #60 CAP 08/26/18 Travoprost* (Travatan*) 0.004%-2.5 Ml Opht, 1 DROP BOTH EYES QHS, #1 BOTTLE 08/26/18 Metolazone* (Metolazone*) 5 Mg Tablet, 5 MG PO QPM, TAB 08/07/18 Brinzolamide (Azopt) 10 Ml Drops.susp, 1 DROP BOTH EYES TID 06/09/18 Polyethylene Glycol* (Polyethylene Glycol*) 17 Gm Powd.pack, 17 GM PO DAILY, #30 PACKET 02/28/17 Finasteride* (Finasteride*) 5 Mg Tablet, 5 MG PO DAILY, TAB 08/09/16 Warfarin Sodium* (Coumadin*) 3 Mg Tablet, 3 MG PO DAILY, TAB DEPENDS HOW HIS BLOOD TEST 08/09/16 Warfarin Sodium* (Coumadin*) 2 Mg Tablet, 2 MG PO DAILY, TAB DEPENDS HOW HIS BLOOD TEST 08/09/16 Atorvastatin Calcium (Atorvastatin Calcium) 10 Mg Tablet, 10 MG PO QHS, #30 TAB 08/09/16 Tamsulosin Hcl* (Tamsulosin Hcl*) 0.4 Mg Cap.er.24h, 0.4 MG PO DAILY, CAP 08/09/16 Metformin* (Glucophage*) 500 Mg Tab, 500 MG PO WITH LUNCH DINNER, #60 TAB 08/09/16 Furosemide* (Furosemide*) 40 Mg Tablet, 40 MG PO DAILY, TAB 08/09/16 Ferrous Sulfate* (Ferrous Sulfate*) 325 Mg Tabec, 325 MG PO DAILY, TAB 08/09/16 Amiodarone Hcl* (Amiodarone Hcl*) 200 Mg Tablet, 200 MG PO DAILY, #30 TAB 08/09/16 Discontinued Reported Medications Brinzolamide (Azopt) 10 Ml Drops.susp, 10 ML BOTH EYES TID 06/10/18 Latanoprost (Latanoprost) 2.5 Ml Drops, 1 DROP BOTH EYES QHS, #1 BOTTLE 08/09/16 Medications Current Medications Amiodarone HCl (Cordarone) 200 mg DAILY PO Last administered on 08/29/18 08:54; Admin Dose 200 MG; Start 08/27/18 at 09:00 Atorvastatin Calcium (Lipitor) 10 mg QHS PO Last administered on 08/28/18 21:15; Admin Dose 10 MG; Start 08/26/18 at 21:00 Brinzolamide (Azopt) 1 drop TID BOTH EYES Last administered on 08/29/18 13:20; Admin Dose 1 DROP; Start 08/26/18 at 13:00 Docusate Sodium (Colace) 250 mg BID PO Last administered on 08/29/18 08:52; Admin Dose 250 MG; Start 08/26/18 at 21:00 Ferrous Sulfate (Ferrous Sulfate (Ec)) 325 mg DAILY PO Last administered on 08/29/18 08:52; Admin Dose 325 MG; Start 08/27/18 at 09:00 Finasteride (Proscar) 5 mg DAILY PO Last administered on 08/29/18 08:53; Admin Dose 5 MG; Start 08/27/18 at 09:00 Furosemide (Lasix) 40 mg DAILY PO Last administered on 08/29/18 08:53; Admin Dose 40 MG; Start 08/27/18 at 09:00 Tamsulosin HCl (Flomax) 0.4 mg DAILY PO Last administered on 08/29/18 08:53; Admin Dose 0.4 MG; Start 08/27/18 at 09:00 Ondansetron HCl (Zofran Inj) 4 mg Q6H PRN IV NAUSEA AND/OR VOMITING Last administered on 08/28/18 00:08; Admin Dose 4 MG; Start 08/26/18 at 12:30 Acetaminophen (Tylenol Tab) 1,000 mg Q6H PRN PO MILD PAIN(1-3)OR ELEVATED TEMP; Start 08/26/18 at 12:30 Tramadol HCl (Ultram) 50 mg Q6H PRN NGT MODERATE PAIN LEVEL 4-6; Start 08/26/18 at 12:30 Tramadol HCl (Ultram) 100 mg Q6H PRN PO MODERATE PAIN LEVEL 7-10 Last administered on 3/21/19at 20:41; Admin Dose 100 MG; Start 08/26/18 at 12:30 Hydromorphone HCl (Dilaudid) 0.5 mg Q3H PRN IV BTP Last administered on 17:39; Admin Dose 0.5 MG; Start 08/26/18 at 12:30 Levothyroxine Sodium (Synthroid) 75 mcg DAILY@06 PO Last administered on 08/29/18 05:33; Admin Dose 75 MCG; Start 08/27/18 at 06:00 Pantoprazole (Protonix Tab) 40 mg DAILY@06 PO Last administered on 08/29/18 05:33; Admin Dose 40 MG; Start 08/27/18 at 06:00 Latanoprost (Xalatan) 1 drop QHS BOTH EYES Last administered on 08/28/18 21:39 ; Admin Dose 1 DROP; Start 08/27/18 at 21:00 Doxazosin Mesylate (Cardura) 2 mg HS PO Last administered on 08/28/18 21:15; Admin Dose 2 MG; Start 08/27/18 at 21:00 Apixaban (Eliquis) 5 mg BID PO Last administered on 08/29/18 08:52; Admin Dose 5 MG; Start 08/29/18 at 07:00 Lactulose (Enulose) 20 gm BID PRN PO CONSTIPATION; Start 08/28/18 at 14:30 Assessment/Plan Hospital Course (Demo Recall) 82-year-old male underwent1 Laparoscopic right inguinal herniorrhaphy, Ventral herniorrhaphy, Local anesthetic injection and Laparoscopic guided bilateral tr ansversus abdominis plane block on August 26, 2018. Postop he was having difficulty urinating and needed to undergo straight cath to empty his bladder. Patient states that prior to his hospital admission he was able to urinate at home. He does have a complex medical history and problems. He is known to have a history of hypertension, dyslipidemia, aortic and mitral valve replacement surgery, pacemaker placement, coronary artery disease, BPH, thrombocytopenia, fatty liver disease, aortic stenosis, cholelithiasis status post trach and PEG, status post valve surgery. The patient is already on tamsulosin and finasteride and he has been catheterized because of the retention . The Ordoñez catheter is draining clear urine. If he is going to be in the hospital for the weekend then on Friday I will discontinue his Ordoñez catheter and see if he can void on his own. Otherwise if he goes to the [facility] will have them take out the Ordoñez catheter Friday or Friday and see if he does urinate. PAMELA OLEA MD Aug 29, 2018 13:39
[2018-08-29 14:02] VITALS: BP 111/77; PULSE 85; RESP 18
--- NOTE | 2018-08-29 14:18 | PN ---
DATE: 08/29/2018 SUBJECTIVE: The patient seen. The patient is overall feeling better. Ordoñez to gravity. Noted elec trolyte imbalance with hypomagnesemia and hypokalemia. The patient's hemoglobin went down to 8.4. C ase discussed with the patient regarding placement as patient feels overall weak and has difficulty t aking care of himself. Will ask high risk case manager to [facility]. In the meantime, patient does have indwelling Ordoñez catheter due to urinary retention. PHYSICAL EXAMINATION: VITAL SIGNS: Temperature 97.7, pulse 77, respirations 18, blood pressure 108/55, saturation 92% to 9 5% on room air. GENERAL: The patient is in no acute distress, pale, frail, temporal wasting. CARDIOVASCULAR: S1, S2, regular rate. LUNGS: Clear. ABDOMEN: Soft. EXTREMITIES: No clubbing, cyanosis. Trace edema of lower extremities. LABORATORY DATA: Sodium 136, potassium 3.4, chloride 99, bicarbonate 29, BUN is 16, creatinine 0.79, glucose 103. Magnesium is low at 1.5. White count 3.1, hemoglobin 8.4, hematocrit 27, platelet cou nt is low at 78. INR was 1.15 on admission. MEDICATIONS: 1. Magnesium sulfate. 2. Eliquis 5 mg b.i.d. 3. Lactulose p.r.n. 4. Xalatan eyedrops as directed. 5. Cardura 2 mg at bedtime. 6. Amiodarone 200 mg daily. 7. Ferrous sulfate 325 mg daily. 8. Proscar 5 mg daily. 9. Lasix 40 daily. 10. Flomax 0.4 daily. 11. Synthroid 75 daily. 12. Protonix 40 mg daily. 13. Lipitor 10 mg at bedtime. 14. Colace 250 b.i.d. 15. . 16. . 17. Zofran p.r.n. 18. Tylenol p.r.n. 19. Ultram p.r.n. 20. Dilaudid p.r.n. ASSESSMENT AND PLAN: This is an 82-year-old male with history of: 1. Extensive cardiac history, status post mitral and aortic valve replacement surgery, anemia, hypot hyroidism tendency for CHF, status post hernia repair surgery postop day #1. 2. Postop day #3 continue physical therapy, incentive spirometer. Monitor hemoglobin and hematocrit . Urinary retention, continue Flomax. Ordoñez in place. Will attempt to remove Ordoñez within a day or 2. Case discussed with Dr. Silveira. Otherwise, the patient can possibly be discharged to the SNF t o include close blood monitoring and removal of Ordoñez. 3. Gastrointestinal. Continue Protonix for gastrointestinal prophylaxis. H and H is low. Follow u p tomorrow with CBC. Transfuse p.r.n. 4. History of valvular heart surgery. Continue Eliquis in the setting of thrombocytopenia. I am co ncerned. We will follow. 5. Benign prostatic hypertrophy. Continue Flomax. 6. Hypothyroidism, on Synthroid. 7. Glaucoma. Continue eyedrops. 8. Constipation. Continue stool softeners. 9. Diet as tolerated. Ensure was added. 10. Thrombocytopenia trending down. Continue to follow. 11. Mild diabetes mellitus. Glucose level in the low 100s. Will prescribe metformin upon discharge . 12. manager fleet to assist with placement. We will follow. Pain control is being provided as neede d. Dictated By: ANGELICA NICHOLS/ELVER Conf#: [id number] DID#: [id number] CC: ANGELICA GRANDE MD;*End*
[2018-08-29] MEDS ORDERED: MAGNESIUM SULFATE 2 GM/50 ML 50 ML IVPB ONE (14:30)
--- NOTE | 2018-08-29 19:55 | PN ---
Date/Time of Note Date/Time of Note DATE: 08/29/18 TIME: 19:53 Assessment/Plan Lines/Catheters IV Catheter Type (from Nrs): Saline Lock Souza in Place (from Nrs): Yes Assessment/Plan Chief Complaint/Hosp Course 1.Right large indirect inguinal hernia, ventral hernia status post laparoscopic right inguinal herniorrhaphy and ventral herniorrhaphy 08/26/18 -IS -ambulate -ice pack to abdominal wall -advance diet as tolerated -Cleared for discharge from surgical standpoint. Patient to make follow-up appointment in 1-2 weeks. 2. Urinary retention: Status post straight catheterization x2; now w indwelling cath -per urology -Close monitoring 3.Pancytopenia: -Per medical team -Supportive -Transfusions as needed 4. Hyperkalemia: Status post Kayexalate -Medical management 5. Extensive cardiac history: Mitral and aortic valve replacement, CHF -Cardiac optimization per cardiology 6. Hypothyroidism: -Continue Synthroid 7. Glaucoma -Medical management Thank you. Patient seen and examined in collaboration with Dr. Chiki Stockton. Subjective 24 Hr Interval Summary Feels well. Improved abdominal pain. No fevers, chills, sob, congested cough, cp, palpitations, coronel, dizziness, nausea, vomiting, diarrhea, dysuria. Exam/Review of Systems Vital Signs Vitals Vital Signs Date Temp Pulse Resp B/P (MAP) Pulse Ox O2 O2 Flow FiO2 Time Delivery Rate 08/29/18 98.6 85 18 111/77 93 Room Air 14:02 (88) 08/26/18 3.0 13:34 Intake and Output 08/28/18 08/28/18 08/29/18 1515:00 23:00 07:00 IntakeIntake Total 200 ml OutputOutput Total 500 ml 800 ml BalanceBalance -500 ml -600 ml Exam Free Text/Dictation Constitutional: alert, oriented Psych: nl mood/affect; No anxiety Head: normocephalic, atraumatic Eyes: nl conjunctiva, EOMI, nl lids, nl sclera ENMT: nl external ears & nose, nl lips & teeth, mucosa pink and moist Neck: supple, non-tender; No jvd Respiratory: normal air movement; No congested cough, No labored breathing Cardiovascular: regular rate and rhythm; No edema Gastrointestinal: soft, tender (Karishma-incisional: Incision sites dry without drainage, minimal bruising;) : indwelling souza Musculoskeletal: nl extremities to inspection; No joint tenderness Extremities: normal pulses Neurological: nl mental status, nl speech, nl strength Skin: No rash or lesions Results Result Diagram: 08/29/18 0610 08/29/18 0610 KRIS MARLOW NP Aug 29, 2018 19:55
[2018-08-29 20:06] VITALS: BP 120/56; PULSE 60; RESP 18
[2018-08-29] MEDS: ATORVASTATIN 10 MG TAB PO SCH (20:48)
[2018-08-29] MEDS: DOXAZOSIN 2 MG TAB PO SCH (20:48)
[2018-08-29] MEDS: LATANOPROST 0.005% 2.5 ML OPH BOTH EYES SCH (20:49)
[2018-08-30 02:20] VITALS: BP 120/59; PULSE 77; RESP 18
[2018-08-30] MEDS: PANTOPRAZOLE (EC) 40 MG TAB PO SCH (06:05)
[2018-08-30] MEDS: LEVOTHYROXINE 75 MCG TAB PO SCH (06:05)
[2018-08-30] MEDS: TAMSULOSIN (SR) 0.4 MG CAP PO SCH (09:08)
[2018-08-30] MEDS: FERROUS SULFATE (EC) 325 MG TAB PO SCH (09:08)
[2018-08-30] MEDS: AMIODARONE 200 MG TAB PO SCH (09:08)
[2018-08-30] MEDS: DOCUSATE SODIUM 250 MG CAP PO SCH (09:08)
[2018-08-30] MEDS: APIXABAN 5 MG TABLET PO SCH (09:08)
[2018-08-30] MEDS: FINASTERIDE 5 MG TAB PO SCH (09:08)
[2018-08-30] MEDS: BRINZOLAMIDE 1% 10ML OPH BOTH EYES SCH ×2 (09:09→13:04)
[2018-08-30] MEDS: FUROSEMIDE 40 MG TAB PO SCH (09:09)
[2018-08-30 10:01] VITALS: BP 120/62; PULSE 80; RESP 17
--- NOTE | 2018-08-30 13:11 | PN ---
Date/Time of Note Date/Time of Note DATE: 08/30/18 TIME: 13:09 Assessment/Plan Lines/Catheters IV Catheter Type (from [facility]): Saline Lock Souza in Place (from [facility]): Yes Assessment/Plan Chief Complaint/Hosp Course 1.Right large indirect inguinal hernia, ventral hernia status post laparoscopic right inguinal herniorrhaphy and ventral herniorrhaphy 08/26/18 -IS -ambulate -ice pack to abdominal wall -advance diet as tolerated -Okay to restart anticoagulants -Cleared for discharge from surgical standpoint. Patient to make follow-up appointment in 1-2 weeks. 2. Urinary retention: Status post straight catheterization x2; now w indwelling cath -per urology -Close monitoring 3.Pancytopenia: -Per medical team -Supportive -Transfusions as needed 4. STANISLAW: -Limit nephrotoxic meds -Renally dose meds -Per renal 5. Extensive cardiac history: Mitral and aortic valve replacement, CHF -Cardiac optimization per cardiology 6. Hypothyroidism: -Continue Synthroid 7. Glaucoma -Medical management Thank you. Patient seen and examined in collaboration with Dr. Chiki Stockton. Subjective 24 Hr Interval Summary Feels well. Abdominal pain improved. No fevers, chills, sob, congested cough, cp, palpitations, coronel, dizziness, nausea, vomiting, diarrhea, dysuria. Exam/Review of Systems Vital Signs Vitals Vital Signs Date Temp Pulse Resp B/P (MAP) Pulse Ox O2 O2 Flow FiO2 Time Delivery Rate 08/30/18 98.4 80 17 120/62 94 10:01 (81) 08/29/18 Room Air 14:02 08/26/18 3.0 13:34 Intake and Output 08/29/18 08/29/18 08/30/18 1515:00 23:00 07:00 IntakeIntake Total 770 ml 360 ml 240 ml OutputOutput Total 700 ml 1200 ml BalanceBalance 770 ml -340 ml -960 ml Exam Free Text/Dictation Constitutional: alert, oriented Psych: nl mood/affect; No anxiety Head: normocephalic, atraumatic Eyes: nl conjunctiva, EOMI, nl lids, nl sclera ENMT: nl external ears & nose, nl lips & teeth, mucosa pink and moist Neck: supple, non-tender; No jvd Respiratory: normal air movement; No congested cough, No labored breathing Cardiovascular: regular rate and rhythm; No edema Gastrointestinal: soft, tender (Karishma-incisional: Incision sites dry without drainage, minimal bruising;) : indwelling souza Musculoskeletal: nl extremities to inspection; No joint tenderness Extremities: normal pulses Neurological: nl mental status, nl speech, nl strength Skin: No rash or lesions Results Result Diagram: 08/30/18 0451 08/30/18 0451 KRIS MARLOW NP Aug 30, 2018 13:11
[2018-08-30 14:04] VITALS: BP 120/60; PULSE 76; RESP 18
--- NOTE | 2018-08-30 14:37 | PDOCDIS ---
Discharge Instructions CONDITION [id number] Patient Condition: [id number] Stable HOME CARE INSTRUCTIONS: [id number] Diet Instructions: [id number] FOLLOW UP/APPOINTMENTS Follow-up Plan [facility], see reconciliation, remove souza on friday or friday ANGELICA GRANDE MD Aug 30, 2018 14:37
--- NOTE | 2018-08-30 16:30 | CONS ---
Consult Date/Type/Reason Admit Date/Time Aug 27, 2018 at 14:58 Initial Consult Date 08/27/18 Type of Consultation: Urology Reason for Consultation Urinary retention Requesting Provider: ANGELICA GRANDE MD Date/Time of Note DATE: 08/30/18 TIME: 16:28 Subjective Patient is comfortable and the Ordoñez catheter is in place and draining clear urine Objective Vitals Vital Signs Date Temp Pulse Resp B/P (MAP) Pulse Ox O2 O2 Flow FiO2 Time Delivery Rate 08/30/18 98.4 80 17 120/62 94 10:01 (81) 08/29/18 Room Air 14:02 08/26/18 3.0 13:34 Intake and Output 08/29/18 08/29/18 08/30/18 1515:00 23:00 07:00 IntakeIntake Total 770 ml 360 ml 240 ml OutputOutput Total 700 ml 1200 ml BalanceBalance 770 ml -340 ml -960 ml Exam Ordoñez catheter is draining well and the urine is clear Results/Medications Result Diagram: 08/30/18 0451 08/30/18 0451 Results 24 hrs Laboratory Tests Test 08/30/18 04:51 White Blood Count 3.0 L Red Blood Count 2.64 L Hemoglobin 8.0 L Hematocrit 24.9 L Mean Corpuscular Volume 94.3 Mean Corpuscular Hemoglobin 30.3 Mean Corpuscular Hemoglobin Concent 32.1 Red Cell Distribution Width 14.2 Platelet Count 93 L Mean Platelet Volume 10.8 H Immature Granulocytes % 0.300 Neutrophils % 54.5 Lymphocytes % 32.3 Monocytes % 10.3 Eosinophils % 2.3 Basophils % 0.3 Nucleated Red Blood Cells % 0.0 Immature Granulocytes # 0.010 Neutrophils # 1.6 Lymphocytes # 1.0 Monocytes # 0.3 Eosinophils # 0.1 Basophils # 0.0 Nucleated Red Blood Cells # 0.0 Sodium Level 139 Potassium Level 3.6 Chloride Level 98 Carbon Dioxide Level 30 Anion Gap 11 Blood Urea Nitrogen 24 H Creatinine 1.29 H Est Glomerular Filtrat Rate mL/min Glucose Level 102 Calcium Level 8.7 Phosphorus Level 3.7 Magnesium Level 1.9 Home Meds Active Scripts Levothyroxine Sodium* (Levothyroxine Sodium*) 50 Mcg Tablet, 75 MCG PO BEFORE BREAKFAST, #30 TAB Prov:ANGELICA GRANDE MD 06/11/18 Reported Medications Docusate Sodium* (Colace*) 250 Mg Capsule, 250 MG PO BID, #60 CAP 08/26/18 Travoprost* (Travatan*) 0.004%-2.5 Ml Opht, 1 DROP BOTH EYES QHS, #1 BOTTLE 08/26/18 Brinzolamide (Azopt) 10 Ml Drops.susp, 1 DROP BOTH EYES TID 06/09/18 Finasteride* (Finasteride*) 5 Mg Tablet, 5 MG PO DAILY, TAB 08/09/16 Atorvastatin Calcium (Atorvastatin Calcium) 10 Mg Tablet, 10 MG PO QHS, #30 TAB 08/09/16 Tamsulosin Hcl* (Tamsulosin Hcl*) 0.4 Mg Cap.er.24h, 0.4 MG PO DAILY, CAP 08/09/16 Furosemide* (Furosemide*) 40 Mg Tablet, 40 MG PO DAILY, TAB 08/09/16 Ferrous Sulfate* (Ferrous Sulfate*) 325 Mg Tabec, 325 MG PO DAILY, TAB 08/09/16 Amiodarone Hcl* (Amiodarone Hcl*) 200 Mg Tablet, 200 MG PO DAILY, #30 TAB 08/09/16 Discontinued Reported Medications Metolazone* (Metolazone*) 5 Mg Tablet, 5 MG PO QPM, TAB 08/07/18 Polyethylene Glycol* (Polyethylene Glycol*) 17 Gm Powd.pack, 17 GM PO DAILY, #30 PACKET 02/28/17 Warfarin Sodium* (Coumadin*) 3 Mg Tablet, 3 MG PO DAILY, TAB DEPENDS HOW HIS BLOOD TEST 08/09/16 Warfarin Sodium* (Coumadin*) 2 Mg Tablet, 2 MG PO DAILY, TAB DEPENDS HOW HIS BLOOD TEST 08/09/16 Metformin* (Glucophage*) 500 Mg Tab, 500 MG PO WITH LUNCH DINNER, #60 TAB 08/09/16 Brinzolamide (Azopt) 10 Ml Drops.susp, 10 ML BOTH EYES TID 06/10/18 Latanoprost (Latanoprost) 2.5 Ml Drops, 1 DROP BOTH EYES QHS, #1 BOTTLE 08/09/16 Discontinued Scripts Levofloxacin* (Levaquin*) 500 Mg Tablet, 500 MG PO DAILY for 7 Days, TAB Prov:ANGELICA GRANDE MD 06/11/18 Medications Current Medications Amiodarone HCl (Cordarone) 200 mg DAILY PO Last administered on 08/30/18 09:08; Admin Dose 200 MG; Start 08/27/18 at 09:00 Atorvastatin Calcium (Lipitor) 10 mg QHS PO Last administered on 08/29/18 20:48; Admin Dose 10 MG; Start 08/26/18 at 21:00 Brinzolamide (Azopt) 1 drop TID BOTH EYES Last administered on 08/30/18 13:04; Admin Dose 1 DROP; Start 08/26/18 at 13:00 Docusate Sodium (Colace) 250 mg BID PO Last administered on 08/30/18 09:08; Admin Dose 250 MG; Start 08/26/18 at 21:00 Ferrous Sulfate (Ferrous Sulfate (Ec)) 325 mg DAILY PO Last administered on 08/30/18 09:08; Admin Dose 325 MG; Start 08/27/18 at 09:00 Finasteride (Proscar) 5 mg DAILY PO Last administered on 08/30/18 09:08; Admin Dose 5 MG; Start 08/27/18 at 09:00 Furosemide (Lasix) 40 mg DAILY PO Last administered on 08/30/18 09:09; Admin Dose 40 MG; Start 08/27/18 at 09:00 Tamsulosin HCl (Flomax) 0.4 mg DAILY PO Last administered on 08/30/18 09:08; Admin Dose 0.4 MG; Start 08/27/18 at 09:00 Ondansetron HCl (Zofran Inj) 4 mg Q6H PRN IV NAUSEA AND/OR VOMITING Last administered on 08/28/18 00:08; Admin Dose 4 MG; Start 08/26/18 at 12:30 Acetaminophen (Tylenol Tab) 1,000 mg Q6H PRN PO MILD PAIN(1-3)OR ELEVATED TEMP; Start 08/26/18 at 12:30 Tramadol HCl (Ultram) 50 mg Q6H PRN NGT MODERATE PAIN LEVEL 4-6; Start 08/26/18 at 12:30 Tramadol HCl (Ultram) 100 mg Q6H PRN PO MODERATE PAIN LEVEL 7-10 Last administered on 08/27/18 20:41; Admin Dose 100 MG; Start 08/26/18 at 12:30 Hydromorphone HCl (Dilaudid) 0.5 mg Q3H PRN IV BTP Last administered on 17:39; Admin Dose 0.5 MG; Start 08/26/18 at 12:30 Levothyroxine Sodium (Synthroid) 75 mcg DAILY@06 PO Last administered on 08/30/18 06:05; Admin Dose 75 MCG; Start 08/27/18 at 06:00 Pantoprazole (Protonix Tab) 40 mg DAILY@06 PO Last administered on 08/30/18 06:05; Admin Dose 40 MG; Start 08/27/18 at 06:00 Latanoprost (Xalatan) 1 drop QHS BOTH EYES Last administered on 08/29/18 20:49; Admin Dose 1 DROP; Start 08/27/18 at 21:00 Doxazosin Mesylate (Cardura) 2 mg HS PO Last administered on 08/29/18 20:48; Admin Dose 2 MG; Start 08/27/18 at 21:00 Apixaban (Eliquis) 5 mg BID PO Last administered on 08/30/18 09:08; Admin Dose 5 MG; Start 08/29/18 at 07:00 Lactulose (Enulose) 20 gm BID PRN PO CONSTIPATION Last administered on 08/30/18 13:22; Admin Dose 20 GM; Start 08/28/18 at 14:30 Assessment/Plan Hospital Course (Demo Recall) 82-year-old male underwent1 Laparoscopic right inguinal herniorrhaphy, Ventral herniorrhaphy, Local anesthetic injection and Laparoscopic guided bilateral transversus abdominis plane block on August 26, 2018. Postop he was having difficulty urinating and needed to undergo straight cath to empty his bladder. Patient states that prior to his hospital admission he was able to urinate at home. He does have a complex medical history and problems. He is known to have a history of hypertension, dyslipidemia, aortic and mitral valve replacement surgery, pacemaker placement, coronary artery disease, BPH, thrombocytopenia, fatty liver disease, aortic stenosis, cholelithiasis status post trach and PEG, status post valve surgery. The patient is already on tamsulosin and finasteride and he has been cat heterized because of the retention . The Ordoñez catheter is draining clear urine. It appears the patient is being discharged to a shelter facility tonight, therefore I will recommend to have the Ordoñez catheter removed at the shelter facility at 6 AM on Friday and watch if the patient voids and check his postvoid residual. PAMELA OLEA MD Aug 30, 2018 16:30
--- NOTE | 2018-08-30 19:16 | DS ---
DATE OF ADMISSION: 08/27/2018 DATE OF DISCHARGE: 08/30/2018 REASON FOR ADMISSION: Elective hernia repair surgery. HOSPITAL COURSE: The patient is an 82-year-old male, very well known to me with history of hypertension, dyslipidemia, aortic and mitral valve replacement surgery, pacemaker placement, coronar y artery disease, BPH, thrombocytopenia, fatty liver disease, aortic stenosis, cholelithiasis status post tracheostomy and PEG in the past after his valve surgery, but the patient recovered, now eating well off the tracheostomy. The patient has been on Coumadin. He presented to my office for preopera tive evaluation as he has abdominal pain and was found to have hernia. The patient was now admitted for the above surgery. The patient underwent on 08/26/2018 laparoscopic right inguinal herniorrhaphy , ventral herniorrhaphy. The patient tolerated the procedure well. Postoperatively, the patient was hydrated unfortunately, had urinary retention requiring Ordoñez. Dr. Silveira, urology, was consulted, who recommended to keep the Ordoñez for a few days. The patient was also seen by Dr. Kellogg and Dr. Chi torres who agreed to place him on Eliquis instead of the Coumadin as patient has prosthetic valv e and not mechanical valve. The patient is improved and participated with physical therapy, but over all weak and he has a Ordoñez. We will discharge him to the assisted facility for close monitor ing. He was also noted to have postop anemia, but still borderline hemoglobin at 8, so we will hold on transfusion. DISCHARGE MEDICATIONS: The patient to be discharged to assisted facility with the following m edications: 1. Tylenol 650 q.6 p.r.n. 2. Amiodarone 200 mg daily. 3. Eliquis 5 mg b.i.d. 4. Lipitor 10 mg at bedtime. 5. Azopt eyedrops as directed. 6. Colace 100 b.i.d. 7. Cardura 2 mg at bedtime. 8. Ferrous sulfate 325, I will increase the dose to t.i.d. dosing. 9. Finasteride 5 mg daily. 10. Lasix I am going to reduce the dose to 20 mg as the patient has currently no edema. 11. Lactulose twice a day for constipation, hold for diarrhea. 12. Xalatan eyedrops as directed. 13. Synthroid 75 mcg daily. 14. Zofran 4 mg p.o. q.6 p.r.n. 15. Protonix 40 mg daily. 16. Flomax 0.4 daily. 17. Ultram 50 q.6 p.r.n. 18. I also put him on [place] 5/325 p.o. q.6 p.r.n. moderate pain. 19. I would avoid NSAID due to mild renal insufficiency. FINAL DIAGNOSES: 1. Abdominal hernia, status post repair. 2. Postop anemia, blood loss. Iron supplements will be provided. 3. Benign prostatic hypertrophy. 4. Urinary retention. 5. Dyslipidemia. 6. History of aortic and mitral valve surgery. 7. Congestive heart failure. 8. Hypothyroidism. 9. Glaucoma. 10. Osteoarthritis. 11. Generalized weakness. Try to maximize patient nutrition support. Physical therapy at the [facility]. DIET: A 2-gram sodium. ACTIVITY: As tolerated. The patient will be monitored closely at this facility. Pathology report just shows hernia with adhe rent adipose tissue. We will follow labs on 09/01/2018 with CBC and CMP. The patient will be placed on GI prophylaxis with Protonix and on Eliquis already for his cardiac issues. We will follow. Dictated By: ANGELICA NICHOLS/ELVER Conf#: [id number] DID#: [id number] CC: DAVID LE MD;*EndCC*
== END 2018-08-30 18:55 | DRG 351 ==
LOC: SDS 07:29 → INTOOBSV 17:04 → 2NE 17:04 → OBSVTOIN 08-27 14:58
PROVIDERS: ADMIT Internal Medicine; ATTEND Surgery
PROC: 0YU54JZ Supplement Right Inguinal Region with Synthetic Substitute, Percutaneous Endoscopic Approach (ICD-10-PCS; principal; 2018-08-27)
PROC: 0WQF4ZZ Repair Abdominal Wall, Percutaneous Endoscopic Approach (ICD-10-PCS; 2018-08-27)
DX: K40.90 Unilateral inguinal hernia, without obstruction or gangrene, not specified as recurrent (principal); D61.818 Other pancytopenia; E46 Unspecified protein-calorie malnutrition; N17.9 Acute kidney failure, unspecified; D62 Acute posthemorrhagic anemia; K43.9 Ventral hernia without obstruction or gangrene; N40.0 Benign prostatic hyperplasia without lower urinary tract symptoms; E03.9 Hypothyroidism, unspecified; E78.5 Hyperlipidemia, unspecified; Z95.0 Presence of cardiac pacemaker; H40.9 Unspecified glaucoma; I25.10 Atherosclerotic heart disease of native coronary artery without angina pectoris; K76.0 Fatty (change of) liver, not elsewhere classified; Z79.01 Long term (current) use of anticoagulants; I35.0 Nonrheumatic aortic (valve) stenosis; I11.0 Hypertensive heart disease with heart failure; I50.9 Heart failure, unspecified; I48.91 Unspecified atrial fibrillation; Z87.891 Personal history of nicotine dependence; R33.9 Retention of urine, unspecified; E87.5 Hyperkalemia; M19.90 Unspecified osteoarthritis, unspecified site; K59.00 Constipation, unspecified; Z68.21 Body mass index [BMI] 21.0-21.9, adult; E83.42 Hypomagnesemia; E87.6 Hypokalemia; E11.51 Type 2 diabetes mellitus with diabetic peripheral angiopathy without gangrene; Z95.2 Presence of prosthetic heart valve
CPT/HCPCS: 80048; 80053; 82962; 83735; 84100; 85025; 85610; 85730; 88302; 97116; 97162; 97530; 99217; C1781; C9113; G0378; J0690; J1170; J1650; J2175; J2405; J2710; J3475; J3480

== ENCOUNTER 2018-10-21 15:30 | Emergency (ER) | payer MEDICARE, OTHER ==
[~2018-10-21] VITALS: Wt 60.9 kg
[~2018-10-21 15:30] MED LIST changes: -CEFAZOLIN 2 GM/50 ML (PMX) 50 ML IVPB SCH; +DOCU250C58 PO; -LATA2.5D2 BOTH EYES; -LEVO500T48 PO; -METF-849 PO; -METO5TAB65 PO; -POLY17PO28 PO; +TRAV4OP25 BOTH EYES; -WARF2TAB PO; -WARF3TAB PO
[2018-10-21] MEDS ORDERED: HYDROCODONE/APAP (5/325) TAB PO ONE (17:00)
--- NOTE | 2018-10-21 17:05 | ERD ---
ER Documentation Chief Complaint Chief Complaint 9/10 L garcia sharp pain x3d. denies trauma. varicose veins present. HPI This patient is an 82-year-old male with past medical history of type 2 diabetes presenting to the emergency department complaining of constant left anterior garcia pain for the past 3 days. Symptoms are worse at night. Current pain is rated 9/10 in severity. He took [place] at home with some relief. He describes the pain as sharp. He denies any falls, trauma, fevers, chills, or other symptoms at this time. ROS All systems reviewed and are negative except as per history of present illness. Medications Home Meds Active Scripts Hydrocodone/Acetaminophen (L[place] 5-325 Tablet) 1 Each Tablet, 1 TAB PO Q6H PRN for PAIN, #5 TAB Prov:JO BRITTON PA-C 10/21/18 Acetaminophen* (Tylenol*) 325 Mg Tablet, 2 TAB PO Q6 PRN for PAIN AND OR ELEVATED TEMP, #20 TAB Prov:JO BRITTON PA-C 10/21/18 Levothyroxine Sodium* (Levothyroxine Sodium*) 50 Mcg Tablet, 75 MCG PO BEFORE BREAKFAST, #30 TAB Prov:ANGELICA GRANDE MD 06/11/18 Reported Medications Docusate Sodium* (Colace*) 250 Mg Capsule, 250 MG PO BID, #60 CAP 08/26/18 Travoprost* (Travatan*) 0.004%-2.5 Ml Opht, 1 DROP BOTH EYES QHS, #1 BOTTLE 08/26/18 Brinzolamide (Azopt) 10 Ml Drops.susp, 1 DROP BOTH EYES TID 06/09/18 Finasteride* (Finasteride*) 5 Mg Tablet, 5 MG PO DAILY, TAB 08/09/16 Atorvastatin Calcium (Atorvastatin Calcium) 10 Mg Tablet, 10 MG PO QHS, #30 TAB 08/09/16 Tamsulosin Hcl* (Tamsulosin Hcl*) 0.4 Mg Cap.er.24h, 0.4 MG PO DAILY, CAP 08/09/16 Furosemide* (Furosemide*) 40 Mg Tablet, 40 MG PO DAILY, TAB 08/09/16 Ferrous Sulfate* (Ferrous Sulfate*) 325 Mg Tabec, 325 MG PO DAILY, TAB 08/09/16 Amiodarone Hcl* (Amiodarone Hcl*) 200 Mg Tablet, 200 MG PO DAILY, #30 TAB 08/09/16 Allergies Allergies: Coded Allergies: No Known Allergy (Unverified , 08/26/18) PMhx/Soc History of Surgery: Yes (0cabg x3) Anesthesia Reaction: No Hx Neurological Disorder: No Hx Respiratory Disorders: Yes (sob some days) Hx Cardiac Disorders: Yes (cad,htn, cabg) Hx Psychiatric Problems: No Hx Miscellaneous Medical Probl: Yes (HTN, dyslipidemia, aortic and mitral valve replacement, CAD, BPH, thrombocy) Hx Alcohol Use: No Hx Substance Use: No Hx Tobacco Use: Yes FmHx Family History: No diabetes Physical Exam Vitals Vital Signs Date Temp Pulse Resp B/P (MAP) Pulse Ox O2 O2 Flow FiO2 Time Delivery Rate 10/21/18 98.4 57 18 143/61 95 Room Air 19:19 (88) 10/21/18 100.7 80 16 153/67 99 16:03 (95) Physical Exam Const: No acute distress Head: Atraumatic Eyes: Normal Conjunctiva ENT: Normal External Ears, Nose and Mouth. Neck: Full range of motion. No meningismus. Resp: Clear to auscultation bilaterally Cardio: Regular rate and rhythm, no murmurs Skin: No petechiae or rashes Back: No midline or flank tenderness Ext: Varicosities present to the left lower extremity. Tenderness to palpation of the anterior left tibia. No warmth. No erythema. No edema. No lymphatic streaking. Neur: Awake and alert Psych: Normal Mood and Affect Results 24 hrs Current Medications Medications Dose Sig/Angeles Start Time Status Last (Trade) Ordered Route PRN Stop Time Admin Dose Reason Admin 1 tab ONCE ONCE 10/21/18 DC 10/21/18 Acetaminophen PO 17:00 17:27 / 10/21/18 17:01 Hydrocodone Bitart ([place] (5/325)) Procedures/MDM 82-year-old male presenting to the emergency department complaining of left garcia pain. He was administered [place] in the department for pain with good response. He was improved prior to discharge. Ultrasound of the left lower extremity showed no evidence of DVT. X-ray of the left tibia/fibula was negative for any acute abnormalities. The full reports interpreted by the radiologist may be viewed above. Patient's extremity symptoms have stabilized while they have been evaluated in the department and are appropriate for outpatient follow up. No evidence of compartment syndrome, neurologic injury, vascular injury, open joint, open fracture, tendon laceration, or foreign body. No evidence of life-threatening pathology at time of discharge. Pt/family in agreement with discharge plan/diagnosis. Pt/family advised to return immediately with any new or worsening symptoms. Follow-up with primary care physician within the next 1-2 days. Departure Diagnosis: Primary Impression: Pain of left leg Condition: Fair Additional Instructions: Follow up with your PCP within the next 1-3 days for a repeat evaluation. If you require a referral to a specialist, your Primary Care Provider may be able to provide this for you. In most patient cases, a referral is not required. If you have further questions regarding this matter, please ask your Primary Care Provider. Return the the emergency department immediately if symptoms worsen or change. If you have any questions regarding medications, ask your pharmacist or us before you leave. If any adverse reactions, occur while taking your medications, discontinue the treatment and return to the emergency department immediately. If any new or worsening symptoms, uncontrolled fevers, or other unexplained symptoms occur, return to the emergency department immediately. Take your medications as directed, and complete the entire course of treatment. OJ BRITTON PA-C October 21, 2018 17:05
[2018-10-21] MEDS ORDERED: ACET325T33 PO (18:36)
[2018-10-21] MEDS ORDERED: HYDR-4011 PO (19:15)
[2018-10-21 19:19] VITALS: BP 143/61; PULSE 57; RESP 18
== END 2018-10-21 19:20 | disposition home or self-care (01) ==
LOC: FTE 15:30
DX: M79.605 Pain in left leg (principal); E11.9 Type 2 diabetes mellitus without complications; I10 Essential (primary) hypertension; I25.10 Atherosclerotic heart disease of native coronary artery without angina pectoris; Z87.891 Personal history of nicotine dependence; Z95.1 Presence of aortocoronary bypass graft
CPT/HCPCS: 73590; 93971

== ENCOUNTER 2019-02-05 23:13 | Inpatient (IN) | payer MEDICARE, OTHER ==
[~2019-02-05] VITALS: Ht 165.1 cm; Wt 70.0 kg
[~2019-02-05 23:13] MED LIST changes: +ACET325T33 PO; +HYDR-4011 PO
[2019-02-05 23:17] VITALS: Ht 165.1 cm; Wt 70.0 kg
[2019-02-06] MEDS ORDERED: morphine 2 MG INJ IV PRN (02:30)
[2019-02-06] MEDS ORDERED: NACL 0.9% 3 ML SYG IV SCH (02:30)
[2019-02-06] MEDS ORDERED: HYDROCODONE/APAP (5/325) TAB PO PRN (02:30)
[2019-02-06] MEDS ORDERED: NITROGLYCERIN (SL) 0.4 MG TAB SL PRN (02:30)
[2019-02-06] MEDS ORDERED: MAGNESIUM HYDROXIDE 30ML CUP PO PRN (02:30)
[2019-02-06] MEDS ORDERED: DOCUSATE SODIUM 100 MG CAP PO PRN (02:30)
[2019-02-06] MEDS ORDERED: FUROSEMIDE 20 MG INJ IV ONE (02:30)
[2019-02-06] MEDS ORDERED: ONDANSETRON 4 MG INJ IV PRN (02:30)
[2019-02-06] MEDS ORDERED: LEVOTHYROXINE 75 MCG TAB PO SCH (07:00)
[2019-02-06] MEDS ORDERED: LEVOTHYROXINE 50 MCG TAB PO SCH (07:00)
[2019-02-06] MEDS: LATANOPROST 0.005% 2.5 ML OPH BOTH EYES SCH ×3 (08:23→22:40)
[2019-02-06] MEDS: FERROUS SULFATE (EC) 325 MG TAB PO SCH (08:23)
[2019-02-06] MEDS: PANTOPRAZOLE (EC) 40 MG TAB PO SCH (08:23)
[2019-02-06] MEDS: LEVOTHYROXINE 75 MCG TAB PO SCH (08:24)
[2019-02-06] MEDS: AMIODARONE 200 MG TAB PO SCH (08:24)
[2019-02-06] MEDS: FINASTERIDE 5 MG TAB PO SCH (08:25)
[2019-02-06] MEDS: DOCUSATE SODIUM 250 MG CAP PO SCH ×2 (08:25→21:26)
[2019-02-06] MEDS ORDERED: FUROSEMIDE 40 MG INJ IV SCH (09:00)
[2019-02-06] MEDS: FUROSEMIDE 20 MG INJ IV SCH ×2 (09:08→21:26)
[2019-02-06] MEDS: BRINZOLAMIDE 1% 10ML OPH BOTH EYES SCH ×4 (09:14→22:40)
[2019-02-06] MEDS: ACETAMINOPHEN 325 MG TAB PO PRN (13:10)
[2019-02-06 16:00] VITALS: BP 160/50; PULSE 62; RESP 17
[2019-02-06 20:00] VITALS: BP 121/58; PULSE 63; RESP 18
[2019-02-06] MEDS ORDERED: TRAVOPROST 0.004% 2.5 ML OPH BOTH EYES SCH (21:00)
[2019-02-06] MEDS: ATORVASTATIN 10 MG TAB PO SCH (21:26)
[2019-02-06] MEDS: TAMSULOSIN (SR) 0.4 MG CAP PO SCH (21:26)
[2019-02-07] VITALS: BP 121/57; PULSE 64; RESP 18
[2019-02-07 04:00] VITALS: BP 124/58; PULSE 60; RESP 18
[2019-02-07] MEDS: PANTOPRAZOLE (EC) 40 MG TAB PO SCH (06:35)
[2019-02-07] MEDS: LEVOTHYROXINE 75 MCG TAB PO SCH (06:36)
[2019-02-07 07:36] VITALS: BP 130/58; PULSE 59; RESP 20
[2019-02-07] MEDS: AMIODARONE 200 MG TAB PO SCH (09:00)
[2019-02-07] MEDS: FERROUS SULFATE (EC) 325 MG TAB PO SCH (09:07)
[2019-02-07] MEDS: FUROSEMIDE 20 MG INJ IV SCH ×2 (09:07→21:50)
[2019-02-07] MEDS: FINASTERIDE 5 MG TAB PO SCH (09:07)
[2019-02-07] MEDS: DOCUSATE SODIUM 250 MG CAP PO SCH ×2 (09:07→21:50)
[2019-02-07] MEDS: BRINZOLAMIDE 1% 10ML OPH BOTH EYES SCH ×3 (09:10→21:49)
[2019-02-07 11:03] VITALS: BP 137/67; PULSE 66; RESP 20
[2019-02-07] MEDS ORDERED: LIDOCAINE 1% (MPF) 5 ML VIAL ONE (13:31)
[2019-02-07 15:08] VITALS: BP 133/64; PULSE 65; RESP 20
[2019-02-07 20:00] VITALS: BP 136/60; PULSE 68; RESP 19
[2019-02-07] MEDS: LATANOPROST 0.005% 2.5 ML OPH BOTH EYES SCH (21:49)
[2019-02-07] MEDS: TAMSULOSIN (SR) 0.4 MG CAP PO SCH (21:50)
[2019-02-07] MEDS: ATORVASTATIN 10 MG TAB PO SCH (21:50)
[2019-02-07] MEDS: APIXABAN 5 MG TABLET PO SCH (21:50)
[2019-02-08] VITALS: BP 140/51; PULSE 71; RESP 19
[2019-02-08 04:00] VITALS: BP 126/57; PULSE 66; RESP 17
[2019-02-08] MEDS: PANTOPRAZOLE (EC) 40 MG TAB PO SCH (06:17)
[2019-02-08 07:33] VITALS: BP 123/60; PULSE 62; RESP 18
[2019-02-08] MEDS: LEVOTHYROXINE 75 MCG TAB PO SCH (08:13)
[2019-02-08] MEDS: BRINZOLAMIDE 1% 10ML OPH BOTH EYES SCH ×3 (08:14→21:24)
[2019-02-08] MEDS: FUROSEMIDE 20 MG INJ IV SCH ×2 (08:15→21:19)
[2019-02-08] MEDS: DOCUSATE SODIUM 250 MG CAP PO SCH ×2 (08:16→21:17)
[2019-02-08] MEDS: FERROUS SULFATE (EC) 325 MG TAB PO SCH (08:16)
[2019-02-08] MEDS: FINASTERIDE 5 MG TAB PO SCH (08:16)
[2019-02-08] MEDS: APIXABAN 5 MG TABLET PO SCH ×2 (08:16→21:00)
[2019-02-08] MEDS: AMIODARONE 200 MG TAB PO SCH (08:16)
[2019-02-08] MEDS ORDERED: MAGNESIUM SULFATE 2 GM/50 ML 50 ML IVPB ONE (10:00)
[2019-02-08] MEDS ORDERED: POTASSIUM CHLORIDE (SR) 20 MEQ TAB PO ONE (10:00)
[2019-02-08 11:44] VITALS: BP 126/58; PULSE 67; RESP 18
[2019-02-08] MEDS ORDERED: SOD CHLORIDE 0.9% 250 ML IV* ONE (14:36)
[2019-02-08 15:19] VITALS: BP 134/62; PULSE 60; RESP 18
[2019-02-08 19:49] VITALS: BP 138/58; PULSE 62; RESP 18
[2019-02-08] MEDS: ATORVASTATIN 10 MG TAB PO SCH (21:17)
[2019-02-08] MEDS: MUPIROCIN 2% 22 GM OINT TOP SCH (21:17)
[2019-02-08] MEDS: LATANOPROST 0.005% 2.5 ML OPH BOTH EYES SCH (21:23)
[2019-02-08] MEDS: TAMSULOSIN (SR) 0.4 MG CAP PO SCH (21:31)
[2019-02-09] VITALS: BP 127/55; PULSE 55; RESP 17
[2019-02-09 04:00] VITALS: BP 117/52; PULSE 71; RESP 18
[2019-02-09] MEDS: PANTOPRAZOLE (EC) 40 MG TAB PO SCH (06:06)
[2019-02-09 07:51] VITALS: BP 122/54; PULSE 62; RESP 20
[2019-02-09] MEDS: LEVOTHYROXINE 75 MCG TAB PO SCH (08:27)
[2019-02-09] MEDS: DOCUSATE SODIUM 250 MG CAP PO SCH ×2 (08:27→21:12)
[2019-02-09] MEDS: FINASTERIDE 5 MG TAB PO SCH (08:28)
[2019-02-09] MEDS: APIXABAN 5 MG TABLET PO SCH (08:28)
[2019-02-09] MEDS: FERROUS SULFATE (EC) 325 MG TAB PO SCH (08:28)
[2019-02-09] MEDS: MUPIROCIN 2% 22 GM OINT TOP SCH ×2 (08:29→21:14)
[2019-02-09] MEDS: AMIODARONE 200 MG TAB PO SCH (08:29)
[2019-02-09] MEDS: FUROSEMIDE 20 MG INJ IV SCH ×2 (08:29→21:13)
[2019-02-09] MEDS: BRINZOLAMIDE 1% 10ML OPH BOTH EYES SCH ×3 (08:30→21:13)
[2019-02-09 11:02] VITALS: BP 133/59; PULSE 62; RESP 20
[2019-02-09 15:12] VITALS: BP 148/67; PULSE 62; RESP 20
[2019-02-09 20:00] VITALS: BP 126/60; PULSE 66; RESP 20
[2019-02-09] MEDS: TAMSULOSIN (SR) 0.4 MG CAP PO SCH (21:12)
[2019-02-09] MEDS: ATORVASTATIN 10 MG TAB PO SCH (21:12)
[2019-02-09] MEDS: LATANOPROST 0.005% 2.5 ML OPH BOTH EYES SCH (21:13)
[2019-02-09] MEDS: BALSAM PERU/CASTOR OIL 60 GM TUBE TOP SCH (21:17)
[2019-02-09] MEDS: NYSTATIN 30 GM POWDER BTL TOP SCH (21:17)
[2019-02-10] VITALS: BP 123/72; PULSE 63; RESP 20
[2019-02-10 03:26] VITALS: BP 119/66; PULSE 61; RESP 18
[2019-02-10] MEDS: PANTOPRAZOLE (EC) 40 MG TAB PO SCH (05:39)
[2019-02-10 07:30] VITALS: BP 124/56; PULSE 67; RESP 19
[2019-02-10] MEDS ORDERED: VANCOMYCIN IV PER PHARMACY XX SCH (08:30)
[2019-02-10] MEDS: LEVOTHYROXINE 75 MCG TAB PO SCH (09:08)
[2019-02-10] MEDS: FINASTERIDE 5 MG TAB PO SCH (09:08)
[2019-02-10] MEDS: DOCUSATE SODIUM 250 MG CAP PO SCH ×2 (09:08→20:50)
[2019-02-10] MEDS: FERROUS SULFATE (EC) 325 MG TAB PO SCH (09:08)
[2019-02-10] MEDS: FUROSEMIDE 40 MG TAB PO SCH (09:09)
[2019-02-10] MEDS: LEVOFLOXACIN 500MG/D5W (PMX) 100 ML IVPB SCH (09:09)
[2019-02-10] MEDS: BRINZOLAMIDE 1% 10ML OPH BOTH EYES SCH ×3 (09:09→20:49)
[2019-02-10] MEDS: MUPIROCIN 2% 22 GM OINT TOP SCH ×2 (09:09→20:52)
[2019-02-10] MEDS ORDERED: VANCOMYCIN 1.25 GM/NS 250 ML 250 ML IVPB ONE (10:00)
[2019-02-10 10:55] VITALS: BP 140/60; PULSE 64; RESP 19
[2019-02-10] MEDS: BALSAM PERU/CASTOR OIL 60 GM TUBE TOP SCH ×2 (10:59→20:53)
[2019-02-10] MEDS: NYSTATIN 30 GM POWDER BTL TOP SCH ×2 (10:59→20:51)
[2019-02-10 14:46] VITALS: BP 127/57; PULSE 69; RESP 19
[2019-02-10 19:48] VITALS: BP 135/60; PULSE 61; RESP 18
[2019-02-10] MEDS: LATANOPROST 0.005% 2.5 ML OPH BOTH EYES SCH (20:49)
[2019-02-10] MEDS: TAMSULOSIN (SR) 0.4 MG CAP PO SCH (20:50)
[2019-02-10] MEDS: ATORVASTATIN 10 MG TAB PO SCH (20:50)
[2019-02-11] VITALS (7 sets, daily range): BP systolic 113–144; BP diastolic 56–65; PULSE 55–97; RESP 18–20
[2019-02-11] MEDS: PANTOPRAZOLE (EC) 40 MG TAB PO SCH (06:06)
[2019-02-11] MEDS: LEVOTHYROXINE 75 MCG TAB PO SCH (08:56)
[2019-02-11] MEDS: DOCUSATE SODIUM 250 MG CAP PO SCH ×2 (08:57→21:31)
[2019-02-11] MEDS: FINASTERIDE 5 MG TAB PO SCH (08:57)
[2019-02-11] MEDS: FUROSEMIDE 40 MG TAB PO SCH (08:57)
[2019-02-11] MEDS: FERROUS SULFATE (EC) 325 MG TAB PO SCH (08:57)
[2019-02-11] MEDS: MUPIROCIN 2% 22 GM OINT TOP SCH ×2 (08:58→21:32)
[2019-02-11] MEDS: NYSTATIN 30 GM POWDER BTL TOP SCH ×2 (08:58→21:31)
[2019-02-11] MEDS: BALSAM PERU/CASTOR OIL 60 GM TUBE TOP SCH ×2 (08:58→21:31)
[2019-02-11] MEDS: BRINZOLAMIDE 1% 10ML OPH BOTH EYES SCH ×3 (08:58→21:37)
[2019-02-11] MEDS: LEVOFLOXACIN 500MG/D5W (PMX) 100 ML IVPB SCH (08:58)
[2019-02-11] MEDS: VANCOMYCIN 1 GM 250 ML IVPB SCH (10:13)
[2019-02-11] MEDS ORDERED: FUROSEMIDE 40 MG INJ IV ONE (14:00)
[2019-02-11] MEDS: ATORVASTATIN 10 MG TAB PO SCH (21:31)
[2019-02-11] MEDS: TAMSULOSIN (SR) 0.4 MG CAP PO SCH (21:31)
[2019-02-11] MEDS: LATANOPROST 0.005% 2.5 ML OPH BOTH EYES SCH (21:36)
[2019-02-12] VITALS: BP 143/60; PULSE 80; RESP 20
[2019-02-12 04:00] VITALS: BP 120/70; PULSE 70; RESP 20
[2019-02-12] MEDS: PANTOPRAZOLE (EC) 40 MG TAB PO SCH (05:54)
[2019-02-12 07:37] VITALS: BP 120/56; PULSE 67; RESP 20
[2019-02-12] MEDS: LEVOTHYROXINE 75 MCG TAB PO SCH (09:19)
[2019-02-12] MEDS: DOCUSATE SODIUM 250 MG CAP PO SCH ×2 (09:19→20:58)
[2019-02-12] MEDS: FERROUS SULFATE (EC) 325 MG TAB PO SCH (09:19)
[2019-02-12] MEDS: SPIRONOLACTONE 25 MG TAB PO SCH (09:20)
[2019-02-12] MEDS: LEVOFLOXACIN 500MG/D5W (PMX) 100 ML IVPB SCH (09:21)
[2019-02-12] MEDS: FUROSEMIDE 40 MG INJ IV SCH (09:21)
[2019-02-12] MEDS: MUPIROCIN 2% 22 GM OINT TOP SCH ×2 (09:21→20:57)
[2019-02-12] MEDS: BRINZOLAMIDE 1% 10ML OPH BOTH EYES SCH ×3 (09:21→20:56)
[2019-02-12] MEDS: BALSAM PERU/CASTOR OIL 60 GM TUBE TOP SCH ×2 (09:22→20:57)
[2019-02-12] MEDS: NYSTATIN 30 GM POWDER BTL TOP SCH ×2 (09:22→20:57)
[2019-02-12] MEDS: FINASTERIDE 5 MG TAB PO SCH (11:12)
[2019-02-12] MEDS: VANCOMYCIN 1 GM 250 ML IVPB SCH (11:12)
[2019-02-12 11:29] VITALS: BP 134/61; PULSE 72; RESP 20
[2019-02-12 15:09] VITALS: BP 130/56; PULSE 65; RESP 20
[2019-02-12] MEDS ORDERED: MAGNESIUM SULFATE 2 GM/50 ML 50 ML IVPB ONE (15:30)
[2019-02-12] MEDS ORDERED: POTASSIUM CHLORIDE (SR) 10 MEQ TAB PO ONE (16:00)
[2019-02-12] MEDS ORDERED: FUROSEMIDE 20 MG INJ IV ONE (16:00)
[2019-02-12] MEDS: ACETAZOLAMIDE 500 MG INJ IV SCH (17:01)
[2019-02-12 19:52] VITALS: BP 124/55; PULSE 73; RESP 20
[2019-02-12] MEDS: LATANOPROST 0.005% 2.5 ML OPH BOTH EYES SCH (20:56)
[2019-02-12] MEDS: ATORVASTATIN 10 MG TAB PO SCH (20:57)
[2019-02-12] MEDS: TAMSULOSIN (SR) 0.4 MG CAP PO SCH (20:57)
[2019-02-13] VITALS: BP 126/53; PULSE 58; RESP 20
[2019-02-13 04:00] VITALS: BP 125/56; PULSE 60; RESP 20
[2019-02-13] MEDS: ACETAZOLAMIDE 500 MG INJ IV SCH ×2 (04:14→15:33)
[2019-02-13] MEDS: PANTOPRAZOLE (EC) 40 MG TAB PO SCH (05:31)
[2019-02-13 07:44] VITALS: BP 133/57; PULSE 67; RESP 20
[2019-02-13] MEDS: FINASTERIDE 5 MG TAB PO SCH (08:40)
[2019-02-13] MEDS: LEVOTHYROXINE 75 MCG TAB PO SCH (08:40)
[2019-02-13] MEDS: SPIRONOLACTONE 25 MG TAB PO SCH (08:40)
[2019-02-13] MEDS: DOCUSATE SODIUM 250 MG CAP PO SCH ×2 (08:40→21:00)
[2019-02-13] MEDS: FERROUS SULFATE (EC) 325 MG TAB PO SCH (08:40)
[2019-02-13] MEDS: BRINZOLAMIDE 1% 10ML OPH BOTH EYES SCH ×3 (08:42→21:56)
[2019-02-13] MEDS: FUROSEMIDE 40 MG INJ IV SCH (08:42)
[2019-02-13] MEDS: LEVOFLOXACIN 500MG/D5W (PMX) 100 ML IVPB SCH (08:42)
[2019-02-13] MEDS: NYSTATIN 30 GM POWDER BTL TOP SCH ×2 (08:43→21:55)
[2019-02-13] MEDS: BALSAM PERU/CASTOR OIL 60 GM TUBE TOP SCH ×2 (08:43→21:55)
[2019-02-13] MEDS: MUPIROCIN 2% 22 GM OINT TOP SCH ×2 (08:43→21:55)
[2019-02-13] MEDS: VANCOMYCIN 1 GM 250 ML IVPB SCH (11:14)
[2019-02-13 11:18] VITALS: BP 124/54; PULSE 78; RESP 16
[2019-02-13 19:54] VITALS: BP 124/57; PULSE 60; RESP 20
[2019-02-13] MEDS: ATORVASTATIN 10 MG TAB PO SCH (21:56)
[2019-02-13] MEDS: TAMSULOSIN (SR) 0.4 MG CAP PO SCH (21:56)
[2019-02-13] MEDS: LATANOPROST 0.005% 2.5 ML OPH BOTH EYES SCH (21:56)
[2019-02-14] VITALS: BP 109/57; PULSE 94; RESP 20
[2019-02-14 04:00] VITALS: BP 130/71; PULSE 59; RESP 20
[2019-02-14] MEDS: ACETAZOLAMIDE 500 MG INJ IV SCH ×2 (04:07→15:53)
[2019-02-14] MEDS: PANTOPRAZOLE (EC) 40 MG TAB PO SCH (06:00)
[2019-02-14] MEDS: ACETAMINOPHEN 325 MG TAB PO PRN (06:02)
[2019-02-14] MEDS: LEVOTHYROXINE 75 MCG TAB PO SCH (06:49)
[2019-02-14 08:23] VITALS: BP 128/56; PULSE 62; RESP 20
[2019-02-14] MEDS: LEVOFLOXACIN 500MG/D5W (PMX) 100 ML IVPB SCH (09:06)
[2019-02-14] MEDS: BALSAM PERU/CASTOR OIL 60 GM TUBE TOP SCH ×2 (09:06→21:01)
[2019-02-14] MEDS: MUPIROCIN 2% 22 GM OINT TOP SCH ×2 (09:06→21:00)
[2019-02-14] MEDS: BRINZOLAMIDE 1% 10ML OPH BOTH EYES SCH ×3 (09:06→21:01)
[2019-02-14] MEDS: FINASTERIDE 5 MG TAB PO SCH (09:07)
[2019-02-14] MEDS: SPIRONOLACTONE 25 MG TAB PO SCH (09:07)
[2019-02-14] MEDS: DOCUSATE SODIUM 250 MG CAP PO SCH ×2 (09:07→20:59)
[2019-02-14] MEDS: FUROSEMIDE 40 MG INJ IV SCH (09:07)
[2019-02-14] MEDS: FERROUS SULFATE (EC) 325 MG TAB PO SCH (09:07)
[2019-02-14] MEDS: NYSTATIN 30 GM POWDER BTL TOP SCH ×2 (09:08→21:00)
[2019-02-14 11:37] VITALS: BP 128/55; PULSE 61; RESP 24
[2019-02-14] MEDS: VANCOMYCIN 750 MG (PMX) 250 ML IVPB SCH (11:48)
[2019-02-14 15:36] VITALS: BP 126/57; PULSE 63; RESP 24
[2019-02-14 19:37] VITALS: BP 132/56; PULSE 64; RESP 20
[2019-02-14] MEDS: TAMSULOSIN (SR) 0.4 MG CAP PO SCH (20:59)
[2019-02-14] MEDS: ATORVASTATIN 10 MG TAB PO SCH (21:00)
[2019-02-14] MEDS: LATANOPROST 0.005% 2.5 ML OPH BOTH EYES SCH (21:01)
[2019-02-15] VITALS (7 sets, daily range): BP systolic 133–145; BP diastolic 54–66; PULSE 60–71; RESP 18
[2019-02-15] MEDS: ACETAZOLAMIDE 500 MG INJ IV SCH ×2 (03:52→15:57)
[2019-02-15] MEDS: PANTOPRAZOLE (EC) 40 MG TAB PO SCH (06:00)
[2019-02-15] MEDS: DOCUSATE SODIUM 250 MG CAP PO SCH ×2 (08:34→21:34)
[2019-02-15] MEDS: FERROUS SULFATE (EC) 325 MG TAB PO SCH (08:34)
[2019-02-15] MEDS: LEVOTHYROXINE 75 MCG TAB PO SCH (08:34)
[2019-02-15] MEDS: MUPIROCIN 2% 22 GM OINT TOP SCH ×2 (08:35→21:35)
[2019-02-15] MEDS: SPIRONOLACTONE 25 MG TAB PO SCH (08:35)
[2019-02-15] MEDS: LEVOFLOXACIN 500MG/D5W (PMX) 100 ML IVPB SCH (08:35)
[2019-02-15] MEDS: BALSAM PERU/CASTOR OIL 60 GM TUBE TOP SCH ×2 (08:35→21:35)
[2019-02-15] MEDS: FUROSEMIDE 40 MG INJ IV SCH (08:35)
[2019-02-15] MEDS: FINASTERIDE 5 MG TAB PO SCH (08:35)
[2019-02-15] MEDS: NYSTATIN 30 GM POWDER BTL TOP SCH ×2 (08:35→21:35)
[2019-02-15] MEDS: BRINZOLAMIDE 1% 10ML OPH BOTH EYES SCH ×3 (08:36→21:35)
[2019-02-15] MEDS: VANCOMYCIN 750 MG (PMX) 250 ML IVPB SCH (11:22)
[2019-02-15] MEDS ORDERED: POTASSIUM CHLORIDE (SR) 10 MEQ TAB PO ONE (13:30)
[2019-02-15] MEDS: TAMSULOSIN (SR) 0.4 MG CAP PO SCH (21:34)
[2019-02-15] MEDS: ATORVASTATIN 10 MG TAB PO SCH (21:34)
[2019-02-15] MEDS: APIXABAN 5 MG TABLET PO SCH (21:36)
[2019-02-15] MEDS: LATANOPROST 0.005% 2.5 ML OPH BOTH EYES SCH (21:36)
[2019-02-16 03:41] VITALS: BP 125/60; PULSE 60; RESP 18
[2019-02-16] MEDS: ACETAZOLAMIDE 500 MG INJ IV SCH ×2 (04:22→16:03)
[2019-02-16] MEDS: PANTOPRAZOLE (EC) 40 MG TAB PO SCH (05:45)
[2019-02-16 07:38] VITALS: BP 124/58; PULSE 61; RESP 19
[2019-02-16] MEDS: FINASTERIDE 5 MG TAB PO SCH (08:55)
[2019-02-16] MEDS: LEVOTHYROXINE 75 MCG TAB PO SCH (08:55)
[2019-02-16] MEDS: DOCUSATE SODIUM 250 MG CAP PO SCH (08:55)
[2019-02-16] MEDS: SPIRONOLACTONE 25 MG TAB PO SCH (08:55)
[2019-02-16] MEDS: FUROSEMIDE 40 MG INJ IV SCH (08:56)
[2019-02-16] MEDS: FERROUS SULFATE (EC) 325 MG TAB PO SCH (08:56)
[2019-02-16] MEDS: LEVOFLOXACIN 500MG/D5W (PMX) 100 ML IVPB SCH (08:56)
[2019-02-16] MEDS: APIXABAN 5 MG TABLET PO SCH (08:56)
[2019-02-16] MEDS: BRINZOLAMIDE 1% 10ML OPH BOTH EYES SCH ×2 (08:58→11:54)
[2019-02-16] MEDS: MUPIROCIN 2% 22 GM OINT TOP SCH (08:59)
[2019-02-16] MEDS: BALSAM PERU/CASTOR OIL 60 GM TUBE TOP SCH (08:59)
[2019-02-16] MEDS: NYSTATIN 30 GM POWDER BTL TOP SCH (08:59)
[2019-02-16 10:57] VITALS: BP 116/56; PULSE 62; RESP 19
[2019-02-16] MEDS: VANCOMYCIN 750 MG (PMX) 250 ML IVPB SCH (11:54)
[2019-02-16 14:47] VITALS: BP 111/56; PULSE 62; RESP 20
[2019-02-17] MEDS ORDERED: FUROSEMIDE 40 MG TAB PO SCH (09:00)
== END 2019-02-16 17:08 | DRG 291 ==
LOC: E/R 23:13 → TEL 02-06 02:12
PROVIDERS: ADMIT Internal Medicine; ATTEND Internal Medicine
PROC: 0W9930Z Drainage of Right Pleural Cavity with Drainage Device, Percutaneous Approach (ICD-10-PCS; principal; 2019-02-07)
PROC: 30233N1 Transfusion of Nonautologous Red Blood Cells into Peripheral Vein, Percutaneous Approach (ICD-10-PCS; 2019-02-08)
DX: I11.0 Hypertensive heart disease with heart failure (principal); J96.00 Acute respiratory failure, unspecified whether with hypoxia or hypercapnia; J90 Pleural effusion, not elsewhere classified; D61.818 Other pancytopenia; I50.33 Acute on chronic diastolic (congestive) heart failure; R31.0 Gross hematuria; D69.6 Thrombocytopenia, unspecified; E11.8 Type 2 diabetes mellitus with unspecified complications; I27.20 Pulmonary hypertension, unspecified; K76.0 Fatty (change of) liver, not elsewhere classified; I48.0 Paroxysmal atrial fibrillation; I73.9 Peripheral vascular disease, unspecified; I25.10 Atherosclerotic heart disease of native coronary artery without angina pectoris; E78.5 Hyperlipidemia, unspecified; N40.0 Benign prostatic hyperplasia without lower urinary tract symptoms; Z95.1 Presence of aortocoronary bypass graft; Z95.0 Presence of cardiac pacemaker; Z79.02 Long term (current) use of antithrombotics/antiplatelets; Z95.2 Presence of prosthetic heart valve; E11.9 Type 2 diabetes mellitus without complications; E87.70 Fluid overload, unspecified; K40.90 Unilateral inguinal hernia, without obstruction or gangrene, not specified as recurrent; E03.9 Hypothyroidism, unspecified; I36.1 Nonrheumatic tricuspid (valve) insufficiency
CPT/HCPCS: 36415; 36430; 71045; 74176; 76536; 76775; 76942; 80048; 80053; 80202; 81001; 81003; 82565; 83540; 83615; 83735; 83880; 84100; 84484; 84520; 85025; 85610; 85730; 86850; 86870; 86900; 86901; 86902; 86920; 87070; 87102; 87116; 88104; 88305; 89051; 93005; 93306; 97110; 97116; 97162; 97530; J1120; J1940; J1956; J2270; J3370; J3475; J7040; P9016